=== PATIENT | male | born 1970 | race African-American/Black ===

== ENCOUNTER 2020-02-14 18:37 | Inpatient (IN) | payer MEDICAID ==
[~2020-02-14] VITALS: Ht 152.4 cm; Wt 45.4 kg
[~2020-02-14 18:37] MED LIST: ACETAMINOP160 MG/5 M ORAL; ACIDOPHILUS1 EAC7 PO; ALBUTEROL2.5 MG/3 M INH; ASCORBIC ACID500 MG ORAL; ASPIR-LOW81 MG GT; ATENOLOL25 MG GT; CARAFATE1 GM/10 M1 ORAL; COLACE100 MG/10 GT; CRANBERRY450 M3 GT; DUONEB 0.5-3(2.53 ML HHN; GLUCAGON W/DILUE1 MG *; INVANZ1 GM IM; LEVEMIR FL100 UNIT/1 SUBQ; MIRALAX17 GM GT; NORCO 10/3251 EA ORAL; PRIMIDONE50 MG GT; PROTONIX40 M2 GT; TENORMIN25 MG GT; VANCOMYCIN1.25 GM/25 IVPB
--- NOTE | 2020-02-14 18:57 | Emergency Room Report ---
History of Present Illness General Chief Complaint: Fever Source: EMS Present Illness HPI The patient's J-tube is not working. When they consider sending in for treatment of this they noted the patient was febrile. He had a temperature of 103. He has been febrile since Wednesday. We are Wednesday today. according to the ambulance crew the patient has rhonchi and also some snoring respirations. The J tube is in place but not functioning. The patient is in a vegetative state from multiple sclerosis. He has a tracheostomy, suprapubic catheter and also of the J-tube. In the past he is been admitted for sepsis from urinary source. Patient is unable to give a history at this time. He was last admitted to the hospital in 2013. Discharge diagnoses: 1. Hematuria. 2. History of urinary retention. 3. Malpositioned Morris catheter. 4. Sepsis. 5. Tachycardia. 6. The patient has a past medical history of multiple sclerosis, seizure disorder, and functional quadriplegia. Allergies: Coded Allergies: CEPHALEXIN (Unverified Allergy, Unknown, 12/05/13) COVID-19 Screening Contact w/high risk pt: Yes Experienced COVID-19 symptoms?: Yes COVID-19 Testing performed MIXER PIGMENT: Yes - 02/05/20 COVID-19 Screening: Negative COVID-19 COVID-19 Testing Source: unk Patient History Past Medical History: see triage record, old chart reviewed Past Surgical History: other - trach, suprapubic cath, J tube Social History Narrative SNF - full code Reviewed Nursing Documentation: PMH: Agreed; PSxH: Agreed Nursing Documentation-PMH Past Medical History: No History, Except For Hx Hypertension: Yes Hx Asthma: Yes Hx COPD: Yes Hx Diabetes: Yes Hx Gastrointestinal Problems: Yes - GERD Hx Neurological Problems: Yes - MULTIPLE SCLEROSIS Hx Cerebral Palsy: Yes Review of Systems All Other Systems: limited Physical Exam Vital Signs Date Time Temp Pulse Resp B/P (MAP) Pulse Ox O2 Delivery O2 Flow Rate FiO2 02/14/20 18:42 100.6 109 22 106/64 (78) 99 Trach Collar 5.0 Sp02 EP Interpretation: reviewed, normal General Appearance: other - Minimally responsive, Chronically Ill Head: normocephalic, atraumatic Eyes: bilateral eye other - eyes closed ENT: dry mucus membranes Neck: no bony tend - rigidity, tracheotomy Respiratory: no respiratory distress, crackles, rhonchi Cardiovascular #1: regular rate, rhythm Cardiovascular #2: 2+ radial (R) Gastrointestinal: no guarding, distended - slightly, other - J tube, decreased bowel sounds Genitourinary: other - suprapubic cath Musculoskeletal: other - Multiple contractures all extremities Neurologic: other - unresponsive Psychiatric: other Skin: warm/dry Medical Decision Making Diagnostic Impression: Primary Impression: UTI (urinary tract infection) Qualified Codes: T83.510A - Infection and inflammatory reaction due to cystostomy catheter, initial encounter; N39.0 - Urinary tract infection, site not specified Additional Impressions: Malfunction of gastrostomy tube Functional quadriplegia ER Course Patient presents with fever and dysfunctional jejunostomy tube. The patient is in a vegetative state with functional quadriplegia. Complex patient for evaluation as uncertain whether he is responding to painful stimuli at this time. Clearly lungs have rhonchi which makes the fever suspect for pulmonary source. Alternatively it is possible that the urine may be infected. Considerations for possible COVID-19. Considerations for sepsis also. Patient evaluated EKG, chest x-ray and labs. Inflammatory markers for possible COVID-19 also included. Patient placed on a monitor technician. We are unable to replace jejunostomy tubes in the emergency department. EKG sinus rhythm without injury. Chest x-ray no specific infiltrates present despite lung exam. Labs with white count upper limit of normal without left shift. CMP essentially unremarkable. Inflammatory markers for COVID-19 not elevated. Urinalysis with pyuria. Antibiotics begun and fluid bolus given. Discussed with Dr. Nicholson. [id number] Patient admitted to telemetry unit. Laboratory Tests Test 02/14/20 19:30 White Blood Count 10.6 K/UL (4.8-10.8) Red Blood Count 3.38 M/UL (4.70-6.10) L Hemoglobin 9.5 G/DL (14.2-18.0) L Hematocrit 29.3 % (42.0-52.0) L Mean Corpuscular Volume 87 FL (80-99) Mean Corpuscular Hemoglobin 28.1 PG (27.0-31.0) Mean Corpuscular Hemoglobin Concent 32.4 G/DL (32.0-36.0) Red Cell Distribution Width 16.6 % (11.6-14.8) H Platelet Count 111 K/UL (150-450) L Mean Platelet Volume 8.2 FL (6.5-10.1) Neutrophils (%) (Auto) 53.2 % (45.0-75.0) Lymphocytes (%) (Auto) 33.7 % (20.0-45.0) Monocytes (%) (Auto) 8.2 % (1.0-10.0) Eosinophils (%) (Auto) 3.3 % (0.0-3.0) H Basophils (%) (Auto) 1.5 % (0.0-2.0) Prothrombin Time 12.0 SEC (9.30-11.50) H Prothrombin Time INR 1.1 (0.9-1.1) Activated Partial Thromboplast Time 21 SEC (23-33) L D-Dimer 0.91 mg/L FEU (0.00-0.49) H Urine Color Pale yellow Urine Appearance Very cloudy Urine pH 8 (4.5-8.0) Urine Specific [place] 1.015 (1.005-1.035) Urine Protein 2+ (NEGATIVE) H Urine Glucose (UA) Negative (NEGATIVE) Urine Ketones 1+ (NEGATIVE) H Urine Blood 2+ (NEGATIVE) H Urine Nitrite Negative (NEGATIVE) Urine Bilirubin Negative (NEGATIVE) Urine Urobilinogen Normal MG/DL (0.0-1.0) Urine Leukocyte Esterase 3+ (NEGATIVE) H Urine RBC 0-2 /HPF (0 - 0) H Urine WBC 30-40 /HPF (0 - 0) H Urine Squamous Epithelial Cells Occasional /LPF Urine Calcium Phosphate Crystals Few /LPF (NONE) Urine Triple Phosphate Crystals Occasional /LPF (NONE) Urine Amorphous Sediment Moderate /LPF (NONE) H Urine Bacteria Moderate /HPF (NONE) H Sodium Level 131 MMOL/L (136-145) L Potassium Level 4.0 MMOL/L (3.5-5.1) Chloride Level 97 MMOL/L (98-107) L Carbon Dioxide Level 28 MMOL/L (21-32) Anion Gap 6 mmol/L (5-15) Blood Urea Nitrogen 14 mg/dL (7-18) Creatinine 0.7 MG/DL (0.55-1.30) Estimated Glomerular Filtration Rate > 60 mL/min (>60) Glucose Level 121 MG/DL (74-106) H Lactic Acid Level 1.90 mmol/L (0.4-2.0) Calcium Level 8.7 MG/DL (8.5-10.1) Magnesium Level 2.2 MG/DL (1.8-2.4) Ferritin 15 NG/ML (8-388) Total Bilirubin 0.2 MG/DL (0.2-1.0) Aspartate Amino Transferase (AST) 16 U/L (15-37) Alanine Aminotransferase (ALT) 20 U/L (12-78) Alkaline Phosphatase 102 U/L (46-116) Lactate Dehydrogenase 158 U/L (81-234) Total Creatine Kinase 55 U/L (26-308) Troponin I 0.000 ng/mL (0.000-0.056) C-Reactive Protein, Quantitative 0.8 mg/dL (0.00-0.90) Pro-B-Type Natriuretic Peptide 23 pg/mL (0-125) Total Protein 8.0 G/DL (6.4-8.2) Albumin 3.4 G/DL (3.4-5.0) Globulin 4.6 g/dL Albumin/Globulin Ratio 0.7 (1.0-2.7) L Lipase 103 U/L (73-393) EKG Diagnostic Results Rate: normal Rhythm: NSR ST Segments: no acute changes Rhythm Strip Diag. Results EP Interpretation: yes Rhythm: NSR, no PVC's, no ectopy Chest X-Ray Diagnostic Results Chest X-Ray Diagnostic Results : Chest X-Ray Ordered: Yes # of Views/Limited/Complete: 1 View Indication: Other EP Interpretation: Yes Interpretation: no consolidation, no effusion, no pneumothorax, other - Tracheostomy Impression: No acute disease Electronically Signed by: Electronically signed by Roberto Rothman MD Last Vital Signs Date Time Temp Pulse Resp B/P (MAP) Pulse Ox O2 Delivery O2 Flow Rate FiO2 02/14/20 20:14 99.7 02/14/20 18:42 109 22 106/64 (78) 99 Trach Collar 5.0 Status: improved Disposition: ADMITTED INPATIENT Condition: Serious Roberto Rothman MD Feb 14, 2020 18:57
[2020-02-14] MEDS ORDERED: Acetaminophen 650 MG SUPP RECTAL ONE (19:00)
[2020-02-14] MEDS ORDERED: Azithromycin 500 MG in NS 275 ML IVPB ONE (19:00)
[2020-02-14] MEDS ORDERED: Piperacillin/Tazobactam 3.375 GM in NS 110 ML IV ONE (19:00)
[2020-02-14] MEDS ORDERED: Vancomycin 1 GM in NS 275 ML IVPB ONE (19:00)
[2020-02-14 19:05] VITALS: BP 118/81
[2020-02-14 19:54] LABS: APPEARANCE,URINE VERY CLOUDY; BILIRUBIN, URINE NEGATIVE (NEGATIVE); GLUCOSE, URINE (UA) NEGATIVE (NEGATIVE); KETONES,URINE 1+ (NEGATIVE); LEUKOCYTE ESTERASE ,URINE 3+ (NEGATIVE); NITRITE,URINE NEGATIVE (NEGATIVE); PH,URINE 8 (4.5-8.0); PROTEIN,URINE 2+ (NEGATIVE); UROBILINOGEN,URINE NORMAL MG/DL (0.0-1.0)
[2020-02-14 19:57] LABS: BASOPHILS % (AUTO) 1.5 % (0.0-2.0); EOSINOPHILS % (AUTO) 3.3 % (0.0-3.0); HEMATOCRIT 29.3 % (42.0-52.0); HEMOGLOBIN 9.5 G/DL (14.2-18.0); LYMPHOCYTES % (AUTO) 33.7 % (20.0-45.0); MEAN CORPUSCULAR VOLUME 87 FL (80-99); MONOCYTES % (AUTO) 8.2 % (1.0-10.0); NEUTROPHILS % (AUTO) 53.2 % (45.0-75.0); PLATELET COUNT 111 K/UL (150-450); RED BLOOD COUNT 3.38 M/UL (4.70-6.10); RED CELL DISTRIBUTION WIDTH 16.6 % (11.6-14.8); WHITE BLOOD COUNT 10.6 K/UL (4.8-10.8)
[2020-02-14 19:58] LABS: COLOR,URINE PALE YELLOW
[2020-02-14 20:10] LABS: ANION GAP 6 mmol/L (5-15); BLOOD UREA NITROGEN 14 mg/dL (7-18); CALCIUM 8.7 MG/DL (8.5-10.1); CARBON DIOXIDE 28 MMOL/L (21-32); CHLORIDE 97 MMOL/L (98-107); CREATININE 0.7 MG/DL (0.55-1.30); SODIUM 131 MMOL/L (136-145)
[2020-02-14 20:25] LABS: ALANINE AMINOTRANSFERASE 20 U/L (12-78); ALBUMIN 3.4 G/DL (3.4-5.0); ALBUMIN/GLOBULIN RATIO 0.7 (1.0-2.7); ALKALINE PHOSPHATASE 102 U/L (46-116); ASPARTATE AMINO TRANSFERASE 16 U/L (15-37); BILIRUBIN,TOTAL 0.2 MG/DL (0.2-1.0); CREATINE KINASE 55 U/L (26-308); FERRITIN 15 NG/ML (8-388); LACTATE DEHYDROGENASE 158 U/L (81-234)
[2020-02-14 20:35] LABS: INR 1.1 (0.9-1.1)
[2020-02-14 22:00] VITALS: BP 121/74
[2020-02-15] VITALS (7 sets, daily range): BP systolic 112–128; BP diastolic 61–81
[2020-02-15] MEDS ORDERED: Acetaminophen Soln 160mg/5ml ORAL PRN (05:45)
[2020-02-15] MEDS ORDERED: Albuterol ud Inhalation HHN PRN (05:45)
[2020-02-15] MEDS ORDERED: HYDROcodone/Acetamin 10/325 tab ORAL PRN (05:45)
--- NOTE | 2020-02-15 07:04 | History & Physical ---
History of Present Illness General Reason for Hospitalization: Fever Present Illness Allergies: Coded Allergies: CEPHALEXIN (Unverified Allergy, Unknown, 12/05/13) COVID-19 Screening Contact w/high risk pt: Yes Experienced COVID-19 symptoms?: Yes Coronavirus symptoms experienc: Fever (T>100.4F or >38C) Medication History Scheduled Ascorbic Acid* (Ascorbic Acid*), 500 MG ORAL DAILY, (Reported) Aspirin* (Aspir-Low*), 81 MG GT DAILY, (Reported) Atenolol* (Tenormin*), 50 MG GT DAILY Docusate Sodium (Docusate Sodium), 250 MG GT DAILY, (Reported) Ertapenem Sodium* (INVanz*), 1 GM IM Q24H Pantoprazole Sodium (Protonix), 40 MG GT DAILY, (Reported) Polyethylene Glycol* (Miralax*), 17 GM GT DAILY, (Reported) Primidone* (Mysoline*), 50 MG GT TID, (Reported) Sucralfate (Carafate), 1 GM ORAL FOUR TIMES A DAY, (Reported) Vancomycin Hcl/D5w (Vancomycin-D5w 1.25 G/250 Ml), 1,250 MG IVPB Q24H Scheduled PRN Acetaminophen 160MG/5ML* (Acetaminophen*), 5 ML ORAL THREE TIMES A DAY PRN for Fever/Headache/Mild Pain, (Reported) Albuterol Sulfate* (Albuterol Sulfate Hhn*), 3 ML INH Q4H PRN for Shortness of Breath, (Reported) Hydrocodone/Acetaminophen (Hydrocodon-Acetaminophn 10-325), 1 TAB ORAL Q4H PRN for For Pain, (Reported) Miscellaneous Medications Cranberry Fruit Concentrate (Cranberry), 450 MG GT, (Reported) Glucagon (Glucagen), 1 MG *, (Reported) Insulin Detemir (Levemir Flexpen), 0 SUBQ, (Reported) Ipratropium/Albuterol Sulfate (DuoNeb 0.5-3(2.5)mg/3ml), 3 ML HHN, (Reported) Lactobacillus Acidophilus (Acidophilus), 1 EACH PO, (Reported) Patient History Healthcare decision maker Resuscitation status Advanced Directive on File Review of Systems Review of Symptoms General ROS: no weight loss or fever Psychological ROS: no depression or mood changes, no memory loss Ophthalmic ROS: no visual changes or eye irritation ENT ROS: no nasal congestion, hearing loss, dizziness Allergy and Immunology ROS: no allergic symptoms or urticaria Hematological and Lymphatic ROS: no swollen glands, unusual bleeding or bruising Endocrine ROS: no polyuria, polydipsia, weight changes, temperature intolerance Respiratory ROS: no cough, shortness of breath, or wheezing Cardiovascular ROS: no chest pain or dyspnea on exertion Gastrointestinal ROS: denies abdominal pain, bright red blood in stool. Musculoskeletal ROS: no myalgias or arthralgias Neurological ROS: no TIA or stroke symptoms Dermatological ROS: no new or changing skin lesions, rashes or pruritis Physical Exam Physical Exam General appearance: alert, cooperative, no distress, appears stated age Head: Normocephalic, without obvious abnormality, atraumatic Eyes: conjunctivae/corneas clear. PERRL, EOM's intact. Fundi benign Throat: Lips, mucosa, and tongue normal. Teeth and gums normal Neck: supple, symmetrical, trachea midline, no adenopathy, thyroid: not enlarged, symmetric, no tenderness/mass/nodules, no carotid bruit and no JVD Lungs: clear to auscultation bilaterally Heart: regular rate and rhythm, S1, S2 normal, no murmur, click, rub or gallop Abdomen: soft, non-tender. Bowel sounds normal. No masses, no organomegaly Extremities: extremities normal, atraumatic, no cyanosis or edema Pulses: 2+ and symmetric Skin: Skin color, texture, turgor normal. No rashes or lesions Neurologic: Grossly normal Last 24 Hour Vital Signs Date Time Temp Pulse Resp B/P (MAP) Pulse Ox O2 Delivery O2 Flow Rate FiO2 02/15/20 04:00 119 02/15/20 03:33 99 T-Piece 5.0 28 02/15/20 02:40 Trach Collar 5.0 02/15/20 02:00 99.5 118 22 122/64 (83) 98 02/15/20 01:55 99.8 118 18 118/74 100 Trach Collar 5.0 02/15/20 01:00 99.8 118 18 122/81 99 Trach Collar 5.0 02/14/20 22:00 99.5 106 18 121/74 99 Trach Collar 5.0 02/14/20 20:14 99.7 02/14/20 19:05 112 20 Trach Collar 5.0 02/14/20 19:05 100.6 112 20 118/81 99 Trach Collar 5.0 02/14/20 18:42 100.6 109 22 106/64 (78) 99 Trach Collar 5.0 Intake and Output 02/14/20 02/15/20 19:00 07:00 Intake Total 1660 ml Balance 1660 ml Intake IV Total 1660 ml # Voids 100 # Bowel Movements 1 Laboratory Tests Test 02/14/20 19:30 White Blood Count 10.6 K/UL (4.8-10.8) Red Blood Count 3.38 M/UL (4.70-6.10) L Hemoglobin 9.5 G/DL (14.2-18.0) L Hematocrit 29.3 % (42.0-52.0) L Mean Corpuscular Volume 87 FL (80-99) Mean Corpuscular Hemoglobin 28.1 PG (27.0-31.0) Mean Corpuscular Hemoglobin Concent 32.4 G/DL (32.0-36.0) Red Cell Distribution Width 16.6 % (11.6-14.8) H Platelet Count 111 K/UL (150-450) L Mean Platelet Volume 8.2 FL (6.5-10.1) Neutrophils (%) (Auto) 53.2 % (45.0-75.0) Lymphocytes (%) (Auto) 33.7 % (20.0-45.0) Monocytes (%) (Auto) 8.2 % (1.0-10.0) Eosinophils (%) (Auto) 3.3 % (0.0-3.0) H Basophils (%) (Auto) 1.5 % (0.0-2.0) Prothrombin Time 12.0 SEC (9.30-11.50) H Prothromb Time International Ratio 1.1 (0.9-1.1) Activated Partial Thromboplast Time 21 SEC (23-33) L D-Dimer 0.91 mg/L FEU (0.00-0.49) H Urine Color Pale yellow Urine Appearance Very cloudy Urine pH 8 (4.5-8.0) Urine Specific [place] 1.015 (1.005-1.035) Urine Protein 2+ (NEGATIVE) H Urine Glucose (UA) Negative (NEGATIVE) Urine Ketones 1+ (NEGATIVE) H Urine Blood 2+ (NEGATIVE) H Urine Nitrite Negative (NEGATIVE) Urine Bilirubin Negative (NEGATIVE) Urine Urobilinogen Normal MG/DL (0.0-1.0) Urine Leukocyte Esterase 3+ (NEGATIVE) H Urine RBC 0-2 /HPF (0 - 0) H Urine WBC 30-40 /HPF (0 - 0) H Urine Squamous Epithelial Cells Occasional /LPF Urine Calcium Phosphate Crystals Few /LPF (NONE) Urine Triple Phosphate Crystals Occasional /LPF (NONE) Urine Amorphous Sediment Moderate /LPF (NONE) H Urine Bacteria Moderate /HPF (NONE) H Sodium Level 131 MMOL/L (136-145) L Potassium Level 4.0 MMOL/L (3.5-5.1) Chloride Level 97 MMOL/L (98-107) L Carbon Dioxide Level 28 MMOL/L (21-32) Anion Gap 6 mmol/L (5-15) Blood Urea Nitrogen 14 mg/dL (7-18) Creatinine 0.7 MG/DL (0.55-1.30) Estimat Glomerular Filtration Rate > 60 mL/min (>60) Glucose Level 121 MG/DL (74-106) H Lactic Acid Level 1.90 mmol/L (0.4-2.0) Calcium Level 8.7 MG/DL (8.5-10.1) Magnesium Level 2.2 MG/DL (1.8-2.4) Ferritin 15 NG/ML (8-388) Total Bilirubin 0.2 MG/DL (0.2-1.0) Aspartate Amino Transf (AST/SGOT) 16 U/L (15-37) Alanine Aminotransferase (ALT/SGPT) 20 U/L (12-78) Alkaline Phosphatase 102 U/L (46-116) Lactate Dehydrogenase 158 U/L (81-234) Total Creatine Kinase 55 U/L (26-308) Troponin I 0.000 ng/mL (0.000-0.056) C-Reactive Protein, Quantitative 0.8 mg/dL (0.00-0.90) Pro-B-Type Natriuretic Peptide 23 pg/mL (0-125) Total Protein 8.0 G/DL (6.4-8.2) Albumin 3.4 G/DL (3.4-5.0) Globulin 4.6 g/dL Albumin/Globulin Ratio 0.7 (1.0-2.7) L Lipase 103 U/L (73-393) Microbiology Date/Time Source Procedure Growth Status 02/15/20 01:32 Rectal Mucosa Received Height (Feet): 5 Height (Inches): 0.00 Weight (Pounds): 100 Medications Current Medications Medications (Trade) Dose Ordered Sig/Kathryn Route PRN Reason Start Time Stop Time Status Last Admin Dose Admin Acetaminophen (Tylenol Peds) 160 mg THREE TIMES A DAY PRN ORAL FHMP 02/15/20 05:45 03/16/20 05:44 UNV Acetaminophen/ Hydrocodone Bitart ([place] ) 1 tab Q4H PRN ORAL For Pain 02/15/20 05:45 02/22/20 05:44 UNV Albuterol Sulfate (Proventil) 2.5 mg Q4H PRN HHN Shortness of Breath 02/15/20 05:45 02/20/20 05:44 Ascorbic Acid (Vitamin C) 500 mg DAILY GT 02/15/20 09:00 03/16/20 08:59 Atenolol (Tenormin) 50 mg DAILY GT 02/15/20 09:00 03/16/20 08:59 Docusate Sodium (Colace) 250 mg DAILY GT 02/15/20 09:00 03/16/20 08:59 Lactobacillus Acidophilus (Culturelle) 1 tab DAILY GT 02/15/20 09:00 05/15/20 08:59 Lansoprazole (Prevacid) 30 mg DAILY GT 02/15/20 09:00 03/16/20 08:59 Non-Formulary Medication (Non-Formulary Med) 1 ea DAILY ORAL 02/15/20 09:00 03/16/20 08:59 UNV Polyethylene Glycol (Miralax) 17 gm DAILY GT 02/15/20 09:00 03/16/20 08:59 Primidone (Mysoline) 50 mg TID GT 02/15/20 09:00 03/16/20 08:59 Sucralfate (Carafate) 1 gm DAILY GT 02/15/20 09:00 03/16/20 08:59 Vancomycin HCl (Vanco pharmacy to dose) 1 ea DAILY PRN MISC Per rx protocol 02/15/20 05:45 03/16/20 05:44 UNV Assessment/Plan Assessment/Plan: Internal Medicine H&P Covering Dr. Nicholson RFA: Sepsis DOS 02/15/2020 HPI 50y old The patient's J-tube is not working. When they consider sending in for treatment of this they noted the patient was febrile. He had a temperature of 103. He has been febrile since Wednesday. We are Wednesday today. according to the ambulance crew the patient has rhonchi and also some snoring respirations. The J tube is in place but not functioning. The patient is in a vegetative state from multiple sclerosis. He has a tracheostomy, suprapubic catheter and also of the J-tube. In the past he is been admitted for sepsis from urinary source. Patient is unable to give a history at this time. At bedside, today, with Rn, no major events noted and on phone with sister, but again he is nonverbal. Was last admitted to the hospital in 2013. Discharge diagnoses: 1. Hematuria. 2. History of urinary retention. 3. Malpositioned Morris catheter. 4. Sepsis. 5. Tachycardia. 6. The patient has a past medical history of multiple sclerosis, seizure disorder, and functional quadriplegia. Allergies: CEPHALEXIN (Unverified Allergy, Unknown, 12/05/13) COVID-19 Screening Contact w/high risk pt: Yes Experienced COVID-19 symptoms?: Yes COVID-19 Testing performed OFFSHORE DIVER: Yes - 02/05/20 COVID-19 Screening: Negative COVID-19 COVID-19 Testing Source: unk Patient History Past Medical History: see triage record, old chart reviewed Past Surgical History: other - trach, suprapubic cath, J tube Social History Narrative SNF - full code Reviewed Nursing Documentation: PMH: Agreed; PSxH: Agreed Nursing Documentation-PMH Past Medical History: No History, Except For Hx Hypertension: Yes Hx Asthma: Yes Hx COPD: Yes Hx Diabetes: Yes Hx Gastrointestinal Problems: Yes - GERD Hx Neurological Problems: Yes - MULTIPLE SCLEROSIS Hx Cerebral Palsy: Yes Review of Systems All Other Systems: limited Physical Exam Vitals: noted Sp02 EP Interpretation: reviewed, normal General Appearance: Chronically Ill Head: normocephalic, atraumatic eyes closed, dry mucus membranes Neck: no bony tend - rigidity, tracheotomy Respiratory: no respiratory distress, crackles, rhonchi CV: regular rate, rhythm Gastrointestinal: no guarding, distended - slightly, other - J tube, decreased bowel sounds Genitourinary: other - suprapubic cath [place]: other - Multiple contractures all extremities Neurologic: other - unresponsive Psychiatric: other Skin: warm/dry Labs: noted Imaging: reviewed Assessment and recs # Sepsis with potential UTI (urinary tract infection) with pyuria --> urinanalysis has been reviewed, with leuk esterase --> ABX vanc/zosyn --> smear has been reviewed # Malfunction of gastrostomy tube --> as per Gi # Functional quadriplegia --> stable # Dysfunctional jejunostomy tube. --> vegetative state with functional quadriplegia. # Tachycardic overnight --> ivfs --> meds restarted, per Dr. Weinberg # Hyponatremia --> as per renal # Respiratory failure s/p trach --> 2l nc --> as per pulm # Nonverbal status # Stage III decub --> per surgery # Dvt ppx lovenox Appreciate network pricing consultant care, dw them [facility] Hospital declaration INPATIENT level of care is warranted for this patient because patient is a 89 year old with who presents with suspicion of . I have a high level of concern because . Patient is at high risk for . Plan of care/treatment inc lude . Patient care is expected to be greater than 2 midnights. OBSERVATION level of care is warranted for this patient. Patient is a 89 year old with who presents with . Patient will be admitted for 1 midnight, but if additional night(s) is/are necessary, patient will be converted to inpatient status for the entire hospitalization Disposition: Once the patient is stable to leave the hospital, I anticipate the patient will likely be discharged to the following environment: Estimated discharge date: I spent 70 minutes on this patient's case, and minutes was dedicated to counseling and/or care coordination. MIPS (Merit-based Incentive Payment System) Applicable CPT: 90631, 13692 CHECK ALL THAT ARE MET: Measure #5 (CHF): All ages. Prescribe YASMANY/ARB upon discharge for patients with left ventricular systolic dysfunction. If not, the reason is clearly documented in the medical chart. Measure #8 (CHF): All ages. Prescribe a beta gale upon discharge for patients with left ventricular systolic dysfunction. If not, the reason is clearly documented in the medical chart. Measure #47 Advance care plan or surrogate decision maker documented in the medical record. Measure #130 The provider has documented, updated, or reviewed the patients current medication list and has documented it in the patients note. Measure #374 (All): Send report to referring provider. Measure #407(Sepsis due to MSSA bacteremia): Age 18+ Patient treated with a beta-lactam antibiotic (Nafcillin, Oxacillin or Cefazolin) as definitive therapy. MEDICAL COMPLEXITY High complexity medical decision making (need 2/3 categories) Problem - need 4 points Acute/new problem with new plan for workup (4 points, 1 max) Acute/new problem without additional workup (3 points, 1 max) Unstable chronic problem actively being managed (2 point each, 2 max) Stable chronic problem actively being managed (1 point each, 2 max) Self-limited/transient process (constipation, muscle ache, etc) (1 point each, 2 max) Data - need 4 points Reviewed labs/imaging studies (1 points, 2 max) Independent review of imaging (EKG, xrays, etc) (2 points, 2 max) Discussed case with consult/other MD/RN (2 points, 2 max) High Risk - qualify if have one of the following: Severe exacerbation of acute problem, acute mental status change, IV narcotics, monitoring drug levels (vancomycin, INR, tacrolimus etc) Shakir Benitez MD Feb 15, 2020 07:04
--- NOTE | 2020-02-15 07:32 | General Progress Note ---
Subjective ROS Limited/Unobtainable: No Allergies: Coded Allergies: CEPHALEXIN (Unverified Allergy, Unknown, 12/05/13) Objective Last 24 Hour Vital Signs Date Time Temp Pulse Resp B/P (MAP) Pulse Ox O2 Delivery O2 Flow Rate FiO2 02/15/20 04:00 119 02/15/20 04:00 99.8 111 21 125/61 (82) 96 02/15/20 03:33 99 T-Piece 5.0 28 02/15/20 02:40 Trach Collar 5.0 02/15/20 02:00 99.5 118 22 122/64 (83) 98 02/15/20 01:55 99.8 118 18 118/74 100 Trach Collar 5.0 02/15/20 01:00 99.8 118 18 122/81 99 Trach Collar 5.0 02/14/20 22:00 99.5 106 18 121/74 99 Trach Collar 5.0 02/14/20 20:14 99.7 02/14/20 19:05 112 20 Trach Collar 5.0 02/14/20 19:05 100.6 112 20 118/81 99 Trach Collar 5.0 02/14/20 18:42 100.6 109 22 106/64 (78) 99 Trach Collar 5.0 Intake and Output 02/14/20 02/15/20 19:00 07:00 Intake Total 1660 ml Balance 1660 ml Intake IV Total 1660 ml # Voids 100 # Bowel Movements 1 Laboratory Tests 02/14/20 19:30: White Blood Count 10.6, Red Blood Count 3.38L, Hemoglobin 9.5L, Hematocrit 29.3L , Mean Corpuscular Volume 87, Mean Corpuscular Hemoglobin 28.1, Mean Corpuscular Hemoglobin Concent 32.4, Red Cell Distribution Width 16.6H, Platelet Count 111L, Mean Platelet Volume 8.2, Neutrophils (%) (Auto) 53.2, Lymphocytes (%) (Auto) 33.7, Monocytes (%) (Auto) 8.2, Eosinophils (%) (Auto) 3.3H, Basophils (%) (Auto) 1.5, Prothrombin Time 12.0H, Prothromb Time International Ratio 1.1, Activated Partial Thromboplast Time 21L, D-Dimer 0.91H, Urine Color Pale yellow, Urine Appearance Very cloudy, Urine pH 8, Urine Specific [place] 1.015, Urine Protein 2+H, Urine Glucose (UA) Negative, Urine Ketones 1+H, Urine Blood 2+H, Urine Nitrite Negative, Urine Bilirubin Negative, Urine Urobilinogen Normal, Urine Leukocyte Esterase 3+H, Urine RBC 0-2H, Urine WBC 30-40H, Urine Squamous Epithelial Cells Occasional, Urine Calcium Phosphate Crystals Few, Urine Triple Phosphate Crystals Occasional, Urine Amorphous Sediment ModerateH, Urine Bacteria ModerateH, Sodium Level 131L, Potassium Level 4.0, Chloride Level 97L, Carbon Dioxide Level 28, Anion Gap 6, Blood Urea Nitrogen 14, Creatinine 0.7, Estimat Glomerular Filtration Rate > 60, Glucose Level 121H, Lactic Acid Level 1.90, Calcium Level 8.7, Magnesium Level 2.2, Ferritin 15, Total Bilirubin 0.2, Aspartate Amino Transf (AST/SGOT) 16, Alanine Aminotransferase (ALT/SGPT) 20, Alkaline Phosphatase 102, Lactate Dehydrogenase 158, Total Creatine Kinase 55, Troponin I 0.000, C-Reactive Protein, Quantitative 0.8, Pro-B-Type Natriuretic Peptide 23, Total Protein 8.0, Albumin 3.4, Globulin 4.6, Albumin/Globulin Ratio 0.7L, Lipase 103 Height (Feet): 5 Height (Inches): 0.00 Weight (Pounds): 100 General Appearance: lethargic EENT: normal ENT inspection Neck: supple Cardiovascular: normal rate Respiratory/Chest: decreased breath sounds Abdomen: normal bowel sounds, non tender, soft Extremities: non-tender Assessment/Plan Problem List: (1) Malfunction of gastrostomy tube ICD Codes: K94.23 - Gastrostomy malfunction SNOMED: 507032637 (2) UTI (urinary tract infection) ICD Codes: N39.0 - Urinary tract infection, site not specified SNOMED: 11289586 Qualifiers: Qualified Codes: T83.510A - Infection and inflammatory reaction due to cystostomy catheter, initial encounter; N39.0 - Urinary tract infection, site not specified (3) Functional quadriplegia ICD Codes: R53.2 - Functional quadriplegia SNOMED: 447865441835233 (4) Fever ICD Codes: R50.9 - Fever, unspecified SNOMED: 458596188 Assessment/Plan: kub with contrast to locate the GT tip anemia work up respiratory care will Husam Carranza MD Feb 15, 2020 07:32
[2020-02-15] MEDS: Sucralfate 1gm tab GT SCH (09:00)
[2020-02-15] MEDS ORDERED: Atenolol 25mg tab GT SCH (09:00)
[2020-02-15] MEDS: Enoxaparin 40mg Inj SUBQ SCH (09:00)
[2020-02-15] MEDS: Docusate 100mg/10ml Liq GT SCH (09:00)
[2020-02-15] MEDS: Lactobacillus-GG tablet GT SCH (11:29)
[2020-02-15] MEDS: Miralax 17gm pkt GT SCH (11:30)
[2020-02-15] MEDS: Ascorbic Acid 500mg tab GT SCH (11:32)
[2020-02-15] MEDS: Vancomycin 500mg/D5W 110ml IVPB SCH ×4 (11:35→23:00)
--- NOTE | 2020-02-15 13:21 | Diagnostic Imaging Report ---
EXAM: XR Abdomen, 2 Views CLINICAL HISTORY: PLEFF TECHNIQUE: Frontal view of the abdomen/pelvis with upright view of the abdomen. COMPARISON: Abdominal radiograph on 07/20/2015 FINDINGS: Hardware: Contrast injected into the G-tube is noted within the stomach and small bowel loops. Abdomen: Nonspecific bowel gas pattern. No free air. Bones: Normal. Soft tissues: Normal. Lower chest: Hands and arms are obscuring the lower lungs. IMPRESSION: Contrast injected into the G-tube is noted within the stomach and small bowel loops, suggesting correct placement of the G-tube.
--- NOTE | 2020-02-15 13:29 | Consultation ---
DATE OF CONSULTATION: 02/15/2020 PULMONARY CONSULTATION CONSULTING PHYSICIAN: Shaggy Ross MD. HISTORY OF PRESENT ILLNESS: This is a 50-year-old male with a history of chronic tracheostomy, who was sent in from subacute facility. The patient has a history of multiple sclerosis and is in a vegetative state. He has a suprapubic catheter as well as a J-tube and apparently was nonfunctional. In the past, he has had urosepsis. The patient was febrile on arrival to the emergency room. PAST MEDICAL HISTORY: Notable for multiple sclerosis, chronic suprapubic catheter, chronic J-tube, chronic tracheostomy, quadriplegia. ALLERGIES: Cephalexin. MEDICATIONS: List of medications include albuterol, ascorbic acid, Tenormin, Colace, lactobacillus, Prevacid, MiraLAX, primidone, Carafate, azithromycin, Zosyn, vancomycin, and Lovenox. REVIEW OF SYSTEMS: Not obtainable. PHYSICAL EXAMINATION: GENERAL: Reveals a 50-year-old male. HEENT: Notable for tracheostomy, site is clean. He is on a T-piece with 5 liters of oxygen, FiO2 is 28% with saturation 99%. VITAL SIGNS: Blood pressure is 120/60, heart rate 110, T-max 100.8 axillary, respirations 21. CHEST: Clear breath sounds bilaterally. ABDOMEN: Soft. J-tube is noted. There is also suprapubic catheter. EXTREMITIES: He has functional quadriplegia. LABORATORY DATA: Laboratory testing shows hemoglobin 9.5, otherwise normal CBC and BMP. Sodium 131. Coags notable for D-dimer 0.9. Urinalysis shows wbc. Imaging studies per ER physician note show nonspecific infiltrates on chest x-ray. EKG, normal sinus rhythm. IMPRESSION: 1. Urosepsis. 2. Chronic tracheostomy. 3. Multiple sclerosis. DISCUSSION: Agree with current management and care. The patient needs fluid hydration and broad spectrum antibiotics. We will continue T-piece with 5 liters of oxygen and pulmonary hygiene. We will follow. Shaggy Ross M.D. DR: TANNER JOB#: [id number] CC:
[2020-02-15] MEDS ORDERED: Piperacillin/Tazobactam 2.25 GM in D5W 55 ML IV SCH (14:00)
[2020-02-15] MEDS: Zosyn 3.375gm q8h **Extended infusion IVPB SCH ×4 (15:13→22:14)
--- NOTE | 2020-02-15 16:05 | Diagnostic Imaging Report ---
EXAM: XR Chest, 1 View CLINICAL HISTORY: ALOC TECHNIQUE: Frontal view of the chest. COMPARISON: None FINDINGS: Hardware: Tracheostomy tube in place. Lungs/pleura: Low lung volumes. Bibasilar opacities likely represent atelectasis. No focal consolidation. No pleural effusion or pneumothorax. Heart/mediastinum: Borderline size of the cardiac silhouette which may be accentuated by low lung volumes. Soft tissues: Unremarkable. Bones: No acute fracture. Upper abdomen: Normal. IMPRESSION: Bibasilar opacities likely represent atelectasis. No other focal consolidation.
[2020-02-15] MEDS ORDERED: Acetaminophen 650mg/20.3ml GT PRN ×6 (17:00)
--- NOTE | 2020-02-15 22:06 | Consultation ---
History of Present Illness General Date patient seen: Feb 15, 2020 Reason for Hospitalization: Fever Present Illness HPI This is a 50-year-old male multimedical comorbidities malnutrition abnormal labs identified to have nonfunctional feeding tube admitted for further care and management. Surgery called to evaluate assist with care. Patient seen, patient by, chart reviewed. Patient with multiple skin concerns decubitus ulcers malnutrition requiring further care and management. Allergies: Coded Allergies: CEPHALEXIN (Unverified Allergy, Unknown, 12/05/13) COVID-19 Screening Contact w/high risk pt: Yes Experienced COVID-19 symptoms?: Yes Coronavirus symptoms experienc: Fever (T>100.4F or >38C) Medication History Scheduled Ascorbic Acid* (Ascorbic Acid*), 500 MG ORAL DAILY, (Reported) Aspirin* (Aspir-Low*), 81 MG GT DAILY, (Reported) Atenolol* (Tenormin*), 50 MG GT DAILY Docusate Sodium (Docusate Sodium), 250 MG GT DAILY, (Reported) Ertapenem Sodium* (INVanz*), 1 GM IM Q24H Pantoprazole Sodium (Protonix), 40 MG GT DAILY, (Reported) Polyethylene Glycol* (Miralax*), 17 GM GT DAILY, (Reported) Primidone* (Mysoline*), 50 MG GT TID, (Reported) Sucralfate (Carafate), 1 GM ORAL FOUR TIMES A DAY, (Reported) Vancomycin Hcl/D5w (Vancomycin-D5w 1.25 G/250 Ml), 1,250 MG IVPB Q24H Scheduled PRN Acetaminophen 160MG/5ML* (Acetaminophen*), 5 ML ORAL THREE TIMES A DAY PRN for Fever/Headache/Mild Pain, (Reported) Albuterol Sulfate* (Albuterol Sulfate Hhn*), 3 ML INH Q4H PRN for Shortness of Breath, (Reported) Hydrocodone/Acetaminophen (Hydrocodon-Acetaminophn 10-325), 1 TAB ORAL Q4H PRN for For Pain, (Reported) Miscellaneous Medications Cranberry Fruit Concentrate (Cranberry), 450 MG GT, (Reported) Glucagon (Glucagen), 1 MG *, (Reported) Insulin Detemir (Levemir Flexpen), 0 SUBQ, (Reported) Ipratropium/Albuterol Sulfate (DuoNeb 0.5-3(2.5)mg/3ml), 3 ML HHN, (Reported) Lactobacillus Acidophilus (Acidophilus), 1 EACH PO, (Reported) Patient History Limited by: medical condition History Provided By: Medical Record, PMD Healthcare decision maker Resuscitation status Advanced Directive on File Past Medical/Surgical History Past Medical/Surgical History: (1) Abnormal urogenital findings (2) Fever (3) Hematuria (4) Tachycardia (5) Sepsis (6) Fever (7) Encounter for care related to feeding tube (8) Functional quadriplegia (9) UTI (urinary tract infection) (10) Malfunction of gastrostomy tube (11) Fever Review of Systems Review of Symptoms General ROS: no weight loss or fever Psychological ROS: no depression or mood changes, no memory loss Ophthalmic ROS: no visual changes or eye irritation ENT ROS: no nasal congestion, hearing loss, dizziness Allergy and Immunology ROS: no allergic symptoms or urticaria Hematological and Lymphatic ROS: no swollen glands, unusual bleeding or bruising Endocrine ROS: no polyuria, polydipsia, weight changes, temperature intolerance Respiratory ROS: no cough, shortness of breath, or wheezing Cardiovascular ROS: no chest pain or dyspnea on exertion Gastrointestinal ROS: denies abdominal pain, bright red blood in stool. Musculoskeletal ROS: no myalgias or arthralgias Neurological ROS: no TIA or stroke symptoms Dermatological ROS: no new or changing skin lesions, rashes or pruritis limited Physical Exam Physical Exam General appearance: alert, cooperative, no distress, appears stated age Head: Normocephalic, without obvious abnormality, atraumatic Eyes: conjunctivae/corneas clear. PERRL, EOM's intact. Fundi benign Throat: Lips, mucosa, and tongue normal. Teeth and gums normal Neck: supple, symmetrical, trachea midline, no adenopathy, thyroid: not enlarged, symmetric, no tenderness/mass/nodules, no carotid bruit and no JVD Lungs: clear to auscultation bilaterally Heart: regular rate and rhythm, S1, S2 normal, no murmur, click, rub or gallop Abdomen: soft, non-tender. Bowel sounds normal. No masses, no organomegaly Extremities: extremities normal, atraumatic, no cyanosis or edema Pulses: 2+ and symmetric Skin: Skin color, texture, turgor normal. No rashes or lesions Neurologic: Grossly normal Last 24 Hour Vital Signs Date Time Temp Pulse Resp B/P (MAP) Pulse Ox O2 Delivery O2 Flow Rate FiO2 02/15/20 16:00 98.8 119 20 125/62 (83) 97 02/15/20 16:00 105 02/15/20 13:45 96 T-Piece 5.0 28 02/15/20 12:00 105 02/15/20 12:00 98.9 107 18 120/65 (83) 96 02/15/20 09:00 Trach Collar 2.0 02/15/20 08:16 98 20 97 T-Piece 4.0 28 02/15/20 08:15 97 T-Piece 5.0 28 02/15/20 08:14 99 20 97 T-Piece 4.0 28 02/15/20 08:00 115 02/15/20 08:00 99.0 116 20 128/68 (88) 97 02/15/20 04:00 119 02/15/20 04:00 99.8 111 21 125/61 (82) 96 02/15/20 03:33 99 T-Piece 5.0 28 02/15/20 02:40 Trach Collar 5.0 02/15/20 02:00 99.5 118 22 122/64 (83) 98 02/15/20 01:55 99.8 118 18 118/74 100 Trach Collar 5.0 02/15/20 01:00 99.8 118 18 122/81 99 Trach Collar 5.0 Intake and Output 02/14/20 02/15/20 19:00 07:00 Intake Total 1660 ml Balance 1660 ml Intake IV Total 1660 ml # Voids 100 # Bowel Movements 1 Microbiology Date/Time Source Procedure Growth Status 02/15/20 01:32 Rectal Mucosa Received Height (Feet): 5 Height (Inches): 0.00 Weight (Pounds): 100 Medications Current Medications Medications (Trade) Dose Ordered Sig/Kathryn Route PRN Reason Start Time Stop Time Status Last Admin Dose Admin Acetaminophen (Tylenol) 650 mg Q8H PRN GT Mild Pain (Pain Scale 1-3) 02/15/20 17:00 03/16/20 16:59 Acetaminophen (Tylenol) 650 mg Q8H PRN GT Temp >100.5 02/15/20 17:00 03/16/20 16:59 Acetaminophen (Tylenol) 650 mg Q8H PRN GT headache 02/15/20 17:00 03/16/20 16:59 Acetaminophen/ Hydrocodone Bitart ([place] 10/325) 1 tab Q4H PRN ORAL For Pain 4-10 02/15/20 05:45 02/22/20 05:44 Albuterol Sulfate (Proventil) 2.5 mg Q4H PRN HHN Shortness of Breath 02/15/20 05:45 02/20/20 05:44 Ascorbic Acid (Vitamin C) 500 mg DAILY GT 02/15/20 09:00 03/16/20 08:59 Atenolol (Tenormin) 50 mg DAILY GT 02/15/20 09:00 03/16/20 08:59 Docusate Sodium (Colace) 250 mg DAILY GT 02/15/20 09:00 03/16/20 08:59 Enoxaparin Sodium (Lovenox) 40 mg DAILY SUBQ 02/15/20 09:00 05/15/20 08:59 02/15/20 09:00 Lactobacillus Acidophilus (Culturelle) 1 tab DAILY GT 02/15/20 09:00 05/15/20 08:59 Lansoprazole (Prevacid) 30 mg DAILY GT 02/15/20 09:00 03/16/20 08:59 Piperacillin Sod/ Tazobactam Sod 3.375 gm/Sodium Chloride 110 ml @ 27.5 mls/hr EVERY 8 HOURS IVPB 02/15/20 14:00 02/20/20 13:59 02/15/20 15:13 Polyethylene Glycol (Miralax) 17 gm DAILY GT 02/15/20 09:00 03/16/20 08:59 Primidone (Mysoline) 50 mg TID GT 02/15/20 09:00 03/16/20 08:59 02/15/20 16:27 Sucralfate (Carafate) 1 gm DAILY GT 02/15/20 09:00 03/16/20 08:59 Vancomycin HCl (Vanco pharmacy to dose) 1 ea DAILY PRN MISC Per rx protocol 02/15/20 05:45 03/16/20 05:44 Vancomycin HCl 500 mg/Dextrose 110 ml @ 110 mls/hr Q12H IVPB 02/15/20 11:00 02/20/20 10:59 02/15/20 11:35 Assessment/Plan Problem List: (1) Functional quadriplegia ICD Codes: R53.2 - Functional quadriplegia SNOMED: 699670990420845 (2) UTI (urinary tract infection) ICD Codes: N39.0 - Urinary tract infection, site not specified SNOMED: 37501210 Qualifiers: Qualified Codes: T83.510A - Infection and inflammatory reaction due to cystostomy catheter, initial encounter; N39.0 - Urinary tract infection, site not specified (3) Malfunction of gastrostomy tube Assessment & Plan: g tube changed and now functional tolerating meds and tf bowel function bowel regimen nutritional optimization DAILY ESTIMATED NEEDS: Needs based on wound, pulmonary/ 66.7kg 25-30 kcals/kg total kcals 1.25-1.8 g protein/kg 83-120 g total protein 25-30 mL/kg total fluid mLs NUTRITION DIAGNOSIS: * Increased kcal/prot/micronutrients needs R/T wound healing as evidenced by pt admitted w/ stage 3 wounds @ sacrum and R gluteal fold. * Swallowing difficulty R/T dysphagia, respiratory status as evidenced by pt is on T-collar, Jtube dep. CURRENT TF:Glucerna 1.2 @70ml/hr x 20 hrs ENTERAL NUTRITION RECOMMENDATIONS: Glucerna 1.2 @ 70ml/hr x 20 hrs to provide 1400ml, 1680kcal, 86g prot, 1162ml free water * Maintain current TF: meets 100% est kcal/prot needs * HOB over 30 degrees/ water flush per MD ADDITIONAL RECOMMENDATIONS: * Maintain calibrated bedscale wt * Monitor lytes, replete as needed * Wound healing: TF @ goal meets 100% RDI Continue Vit C/ add ZnSO4 220mg QD x 10 days + Caio BID via Jtube * Monitor BGs, need for NISS ICD Codes: K94.23 - Gastrostomy malfunction SNOMED: 932024733 (4) Fever ICD Codes: R50.9 - Fever, unspecified SNOMED: 911203684 (5) Fever ICD Codes: R50.9 - Fever, unspecified SNOMED: 855028303 (6) Fever ICD Codes: R50.9 - Fever, unspecified SNOMED: 420984396 (7) Hematuria ICD Codes: R31.9 - Hematuria, unspecified SNOMED: 53438394 (8) Tachycardia ICD Codes: R00.0 - Tachycardia, unspecified SNOMED: 3151038 (9) Sepsis ICD Codes: A41.9 - Sepsis, unspecified organism SNOMED: 16001014 (10) Abnormal urogenital findings ICD Codes: R89.9 - Unsp abnormal finding in specimens from oth org/tiss SNOMED: 522363233 (11) Encounter for care related to feeding tube ICD Codes: Z46.59 - Encounter for fitting and adjustment of other gastrointestinal appliance and device SNOMED: 102554320 (12) Decubitus skin ulcer Assessment & Plan: Patient identified admission of multiple areas of skin breakdown mainly moisture related pressure injuries as well. Patient evaluated care plan initiated wounds washed dressings applied protocol initiated no deep wounds no abscess no cellulitis. Local wound care will be initiated offload pressure nutritional optimization ICD Codes: L89.90 - Pressure ulcer of unspecified site, unspecified stage SNOMED: 022122271 Tacho Fagan Feb 15, 2020 22:06
[2020-02-16] VITALS: BP 108/65
--- NOTE | 2020-02-16 00:45 | Consultation ---
DATE OF CONSULTATION: CARDIOLOGY CONSULTATION CONSULTING PHYSICIAN: Roberto Weinberg MD REFERRING PHYSICIAN: Donna Nicholson MD REASON FOR CONSULTATION: Tachycardia. HISTORY OF PRESENT ILLNESS: This 50-year-old male with chronic encephalopathy due to multiple sclerosis has a chronic tracheostomy and was transferred here for management of a nonfunctional feeding tube. I have been asked to address his tachycardia. PAST MEDICAL HISTORY: Includes chronic suprapubic catheter, chronic jejunostomy tube, chronic tracheostomy, functional quadriparesis, vegetative state due to multiple sclerosis. ALLERGIES: Include cephalexin. MEDICATIONS: Reviewed and reconciled and include . REVIEW OF SYSTEMS: Not obtainable. PHYSICAL EXAMINATION: VITAL SIGNS: Patient is on T-tube collar on 5 liters oxygen. No respiratory distress. Blood pressure 120/60, heart rate 110, respirations 21, temperature 100.8 max. HEENT: Thin secretions. LUNGS: Bilateral breath sounds. No wheezing or rales. CARDIAC: Regular rhythm. Rapid rate. Normal S1, S2 with no murmur or rub. ABDOMEN: Soft. J-tube is noted as well as suprapubic catheter. EXTREMITIES: No edema. Muscle atrophy. NEUROLOGIC: Patient is comatose. LABORATORY AND DIAGNOSTIC DATA: EKG, sinus tachycardia, no acute abnormalities. White count 10.6, hemoglobin 9.5. Sodium 131, potassium 4, bicarb 28, chloride 97, BUN 14, creatinine 0.7. Lactic acid 1.9. Troponin 0. Albumin 3.4. Urinalysis 30 to 40 white cells. Venous duplex negative for DVT. IMPRESSION: 1. Complicated urinary tract infection. 2. Hyponatremia. 3. Hypochloremia. 4. Hypovolemia. 5. Beta-gale withdrawal. 6. Autonomic dysfunction. 7. Chronic vegetative state. 8. Chronic respiratory failure. 9. Multiple sclerosis. 10. Anemia of chronic disease. PLAN: 1. Antimicrobials per primary care physician. 2. Saline hydration. 3. Resume beta-gale. 4. DVT prophylaxis. 5. Respiratory hygiene. 6. Avoid beta agonist therapy. Roberto Weinberg M.D. : [facility]RIS JOB#: [id number] CC:
[2020-02-16 04:00] VITALS: BP 109/58
[2020-02-16 07:01] LABS: ALANINE AMINOTRANSFERASE 22 U/L (12-78); ALBUMIN 3.3 G/DL (3.4-5.0); ALBUMIN/GLOBULIN RATIO 0.8 (1.0-2.7); ALKALINE PHOSPHATASE 114 U/L (46-116); ANION GAP 7 mmol/L (5-15); ASPARTATE AMINO TRANSFERASE 15 U/L (15-37); BILIRUBIN,TOTAL 0.2 MG/DL (0.2-1.0); BLOOD UREA NITROGEN 10 mg/dL (7-18); CALCIUM 8.9 MG/DL (8.5-10.1); CARBON DIOXIDE 25 MMOL/L (21-32); CHLORIDE 102 MMOL/L (98-107); CREATININE 0.7 MG/DL (0.55-1.30); SODIUM 134 MMOL/L (136-145)
[2020-02-16] MEDS: Zosyn 3.375gm q8h **Extended infusion IVPB SCH ×6 (07:03→21:43)
--- NOTE | 2020-02-16 07:05 | General Progress Note ---
Subjective HEENT: Denies: no symptoms, eye pain, blurred vision, tearing, double vision, ear pain, ear discharge, nose pain, nose congestion, throat pain, throat swelling, mouth pain, mouth swelling, other Cardiovascular: Denies: no symptoms, chest pain, edema, irregular heart rate, lightheadedness, palpitations, syncope, other Respiratory: Denies: no symptoms, cough, orthopnea, shortness of breath, SOB with excertion, SOB at rest, sputum, stridor, wheezing, other Gastrointestinal/Abdominal: Denies: no symptoms, abdomen distended, abdominal pain, black stools, tarry stools, blood in stool, constipated, diarrhea, difficulty swallowing, nausea, poor appetite, poor fluid intake, rectal bleeding, vomiting, other Genitourinary: Denies: no symptoms, burning, discharge, frequency, flank pain, hematuria, incontinence, pain, urgency, other Neurologic/Psychiatric: Denies: no symptoms, anxiety, depressed, emotional problems, headache, numbness, paresthesia, pre-existing deficit, seizure, tingling, tremors, weakness, other Endocrine: Denies: no symptoms, excessive sweating, flushing, intolerance to cold, intolerance to heat, increased hunger, increased thirst, increased urine, unexplained weight gain, unexplained weight loss, other Hematologic/Lymphatic: Denies: no symptoms, anemia, easy bleeding, easy bruising, other Allergies: Coded Allergies: CEPHALEXIN (Unverified Allergy, Unknown, 12/05/13) Subjective 02/15 tachycardic overnight, with bp mildly elev, reviewed cards recs Objective Last 24 Hour Vital Signs Date Time Temp Pulse Resp B/P (MAP) Pulse Ox O2 Delivery O2 Flow Rate FiO2 02/16/20 04:00 99.0 86 109/58 (75) 02/16/20 04:00 97 02/16/20 01:22 97 T-Piece 5.0 28 02/16/20 00:00 119 02/16/20 00:00 108 115/65 02/16/20 00:00 98.2 84 108/65 (79) 02/15/20 21:00 Trach Collar 2.0 02/15/20 20:00 99.2 110 20 112/65 (81) 97 02/15/20 19:00 119 20 97 T-Piece 4.0 28 02/15/20 19:00 97 T-Piece 5.0 28 02/15/20 16:00 98.8 119 20 125/62 (83) 97 02/15/20 16:00 105 02/15/20 13:45 96 T-Piece 5.0 28 02/15/20 12:00 105 02/15/20 12:00 98.9 107 18 120/65 (83) 96 02/15/20 09:00 Trach Collar 2.0 02/15/20 08:16 98 20 97 T-Piece 4.0 28 02/15/20 08:15 97 T-Piece 5.0 28 02/15/20 08:14 99 20 97 T-Piece 4.0 28 02/15/20 08:00 115 02/15/20 08:00 99.0 116 20 128/68 (88) 97 Intake and Output 02/15/20 02/16/20 19:00 07:00 Output Total 500 ml Balance -500 ml Output Urine Total 500 ml # Bowel Movements 1 Laboratory Tests 02/16/20 05:10: White Blood Count [Pending], Red Blood Count [Pending], Hemoglobin [Pending], Hematocrit [Pending], Mean Corpuscular Volume [Pending], Mean Corpuscular Hemoglobin [Pending], Mean Corpuscular Hemoglobin Concent [Pending], Red Cell Distribution Width [Pending], Platelet Count [Pending], Mean Platelet Volume [Pending], Neutrophils (%) (Auto) [Pending], Lymphocytes (%) (Auto) [Pending], M onocytes (%) (Auto) [Pending], Eosinophils (%) (Auto) [Pending], Basophils (%) (Auto) [Pending], Sodium Level [Pending], Potassium Level [Pending], Chloride Level [Pending], Carbon Dioxide Level [Pending], Blood Urea Nitrogen [Pending], Creatinine [Pending], Estimat Glomerular Filtration Rate [Pending], Glucose Level [Pending], Calcium Level [Pending], Iron Level [Pending], Unsaturated Iron Binding [Pending], Total Bilirubin [Pending], Aspartate Amino Transf (AST/SGOT) [Pending], Alanine Aminotransferase (ALT/SGPT) [Pending], Alkaline Phosphatase [Pending], Total Protein [Pending], Albumin [Pending], Globulin [Pending], Thyroid Stimulating Hormone (TSH) [Pending] Height (Feet): 5 Height (Inches): 0.00 Weight (Pounds): 100 Objective Physical Exam Vitals: noted Sp02 EP Interpretation: reviewed, normal General Appearance: Chronically Ill Head: normocephalic, atraumatic eyes closed, dry mucus membranes Neck: no bony tend - rigidity, tracheotomy Respiratory: no respiratory distress, crackles, rhonchi CV: regular rate, rhythm Gastrointestinal: no guarding, distended - slightly, other - J tube, decreased bowel sounds Genitourinary: other - suprapubic cath [place]: other - Multiple contractures all extremities Neurologic: other - unresponsive Psychiatric: other Skin: warm/dry Assessment/Plan Assessment/Plan: IM Covering Assessment and recs # Sepsis with potential UTI (urinary tract infection) with pyuria --> urinanalysis has been reviewed, with leuk esterase --> ABX vanc/zosyn --> smear has been reviewed # Malfunction of gastrostomy tube --> as per Gi # Functional quadriplegia --> stable # Dysfunctional jejunostomy tube. --> vegetative state with functional quadriplegia. # Tachycardic overnight --> ivfs --> atenolol # Hyponatremia --> as per renal # Respiratory failure s/p trach --> 2l nc --> as per pulm # Nonverbal status # Stage III decub --> per surgery # Dvt ppx lovenox sq Appreciate senior clinical consultant care, dw Shakir De La Cruz MD Feb 16, 2020 07:05
[2020-02-16 07:33] LABS: % IRON SATURATION 14 % (15-50); IRON 46 ug/dL (50-175); TOTAL IRON BINDING CAPACITY 335 ug/dL (250-450)
[2020-02-16 08:00] VITALS: BP 103/65
--- NOTE | 2020-02-16 09:02 | General Progress Note ---
Subjective ROS Limited/Unobtainable: No Allergies: Coded Allergies: CEPHALEXIN (Unverified Allergy, Unknown, 12/05/13) Objective Last 24 Hour Vital Signs Date Time Temp Pulse Resp B/P (MAP) Pulse Ox O2 Delivery O2 Flow Rate FiO2 02/16/20 07:00 98 18 100 T-Piece 5.0 28 02/16/20 07:00 100 T-Piece 5.0 28 02/16/20 04:00 99.0 86 109/58 (75) 02/16/20 04:00 97 02/16/20 01:22 97 T-Piece 5.0 28 02/16/20 00:00 119 02/16/20 00:00 108 115/65 02/16/20 00:00 98.2 84 108/65 (79) 02/15/20 21:00 Trach Collar 2.0 02/15/20 20:00 99.2 110 20 112/65 (81) 97 02/15/20 19:00 119 20 97 T-Piece 4.0 28 02/15/20 19:00 97 T-Piece 5.0 28 02/15/20 16:00 98.8 119 20 125/62 (83) 97 02/15/20 16:00 105 02/15/20 13:45 96 T-Piece 5.0 28 02/15/20 12:00 105 02/15/20 12:00 98.9 107 18 120/65 (83) 96 Intake and Output 02/15/20 02/16/20 19:00 07:00 Output Total 500 ml Balance -500 ml Output Urine Total 500 ml # Bowel Movements 1 Laboratory Tests 02/16/20 05:10: Sodium Level 134L, Potassium Level 5.0, Chloride Level 102, Carbon Dioxide Level 25, Anion Gap 7, Blood Urea Nitrogen 10, Creatinine 0.7, Estimat Glomerular Filtration Rate > 60, Glucose Level 131H, Calcium Level 8.9, Iron Level 46L, Total Iron Binding Capacity 335, Percent Iron Saturation 14L, Unsaturated Iron Binding 289, Total Bilirubin 0.2, Aspartate Amino Transf (AST/SGOT) 15, Alanine Aminotransferase (ALT/SGPT) 22, Alkaline Phosphatase 114, Total Protein 7.4, Albumin 3.3L, Globulin 4.1, Albumin/Globulin Ratio 0.8L, Thyroid Stimulating Hormone (TSH) 1.022 Height (Feet): 5 Height (Inches): 0.00 Weight (Pounds): 100 General Appearance: no apparent distress EENT: normal ENT inspection Neck: supple Cardiovascular: normal rate Respiratory/Chest: decreased breath sounds Abdomen: normal bowel sounds, non tender, soft Extremities: non-tender Assessment/Plan Problem List: (1) Malfunction of gastrostomy tube ICD Codes: K94.23 - Gastrostomy malfunction SNOMED: 754105051 (2) UTI (urinary tract infection) ICD Codes: N39.0 - Urinary tract infection, site not specified SNOMED: 39291938 Qualifiers: Qualified Codes: T83.510A - Infection and inflammatory reaction due to cystostomy catheter, initial encounter; N39.0 - Urinary tract infection, site not specified (3) Functional quadriplegia ICD Codes: R53.2 - Functional quadriplegia SNOMED: 955919406408426 (4) Fever ICD Codes: R50.9 - Fever, unspecified SNOMED: 465614641 Assessment/Plan: GT has been changed and functioning anemia work up respiratory care will fu Husam Méndez MD Feb 16, 2020 09:02
[2020-02-16] MEDS: Docusate 100mg/10ml Liq GT SCH (09:23)
[2020-02-16] MEDS: Miralax 17gm pkt GT SCH (09:23)
[2020-02-16] MEDS: Lactobacillus-GG tablet GT SCH (09:24)
[2020-02-16] MEDS: Sucralfate 1gm tab GT SCH (09:24)
[2020-02-16] MEDS: Ascorbic Acid 500mg tab GT SCH (09:25)
[2020-02-16] MEDS: Enoxaparin 40mg Inj SUBQ SCH (09:46)
[2020-02-16 10:00] LABS: BASOPHILS % (AUTO) 1.8 % (0.0-2.0); EOSINOPHILS % (AUTO) 6.9 % (0.0-3.0); HEMATOCRIT 29.4 % (42.0-52.0); HEMOGLOBIN 9.4 G/DL (14.2-18.0); MEAN CORPUSCULAR VOLUME 87 FL (80-99); MONOCYTES % (AUTO) 9.3 % (1.0-10.0); NEUTROPHILS % (AUTO) 66.1 % (45.0-75.0); PLATELET COUNT 429 K/UL (150-450); RED BLOOD COUNT 3.38 M/UL (4.70-6.10); RED CELL DISTRIBUTION WIDTH 16.3 % (11.6-14.8); WHITE BLOOD COUNT 11.8 K/UL (4.8-10.8)
[2020-02-16 12:00] VITALS: BP 105/75
--- NOTE | 2020-02-16 13:25 | Pulmonology Progress Note ---
Subjective ROS Limited/Unobtainable: No Allergies: Coded Allergies: CEPHALEXIN (Unverified Allergy, Unknown, 12/05/13) Objective Last 24 Hour Vital Signs Date Time Temp Pulse Resp B/P (MAP) Pulse Ox O2 Delivery O2 Flow Rate FiO2 02/16/20 09:00 101 103/65 02/16/20 09:00 Trach Collar 2.0 02/16/20 08:00 89 02/16/20 08:00 98.1 101 21 103/65 (78) 96 02/16/20 07:00 98 18 100 T-Piece 5.0 28 02/16/20 07:00 100 T-Piece 5.0 28 02/16/20 04:00 99.0 86 109/58 (75) 02/16/20 04:00 97 02/16/20 01:22 97 T-Piece 5.0 28 02/16/20 00:00 119 02/16/20 00:00 108 115/65 02/16/20 00:00 98.2 84 108/65 (79) 02/15/20 21:00 Trach Collar 2.0 02/15/20 20:00 99.2 110 20 112/65 (81) 97 02/15/20 19:00 119 20 97 T-Piece 4.0 28 02/15/20 19:00 97 T-Piece 5.0 28 02/15/20 16:00 98.8 119 20 125/62 (83) 97 02/15/20 16:00 105 02/15/20 13:45 96 T-Piece 5.0 28 Intake and Output 02/15/20 02/16/20 19:00 07:00 Output Total 500 ml Balance -500 ml Output Urine Total 500 ml # Bowel Movements 1 Respiratory: decreased breath sounds Cardiovascular: normal rate Microbiology Date/Time Source Procedure Growth Status 02/15/20 01:32 Rectal Mucosa Received 02/14/20 19:30 Blood Blood Culture - Preliminary NO GROWTH AFTER 24 HOURS Resulted 02/14/20 19:15 Blood Blood Culture - Preliminary NO GROWTH AFTER 24 HOURS Resulted Laboratory Tests 02/16/20 05:10: Sodium Level 134L, Potassium Level 5.0, Chloride Level 102, Carbon Dioxide Level 25, Anion Gap 7, Blood Urea Nitrogen 10, Creatinine 0.7, Estimat Glomerular Filtration Rate > 60, Glucose Level 131H, Calcium Level 8.9, Iron Level 46L, Total Iron Binding Capacity 335, Percent Iron Saturation 14L, Unsaturated Iron Binding 289, Total Bilirubin 0.2, Aspartate Amino Transf (AST/SGOT) 15, Alanine Aminotransferase (ALT/SGPT) 22, Alkaline Phosphatase 114, Total Protein 7.4, Albumin 3.3L, Globulin 4.1, Albumin/Globulin Ratio 0.8L, Thyroid Stimulating Hormone (TSH) 1.022 02/16/20 09:45: White Blood Count 11.8H, Red Blood Count 3.38L, Hemoglobin 9.4L, Hematocrit 29 .4L, Mean Corpuscular Volume 87, Mean Corpuscular Hemoglobin 27.8, Mean Corpuscular Hemoglobin Concent 31.8L, Red Cell Distribution Width 16.3H, Platelet Count 429, Mean Platelet Volume 7.0, Neutrophils (%) (Auto) 66.1, Lymphocytes (%) (Auto) 16.0L, Monocytes (%) (Auto) 9.3, Eosinophils (%) (Auto) 6 .9H, Basophils (%) (Auto) 1.8, Vancomycin Level Trough 6.9 Current Medications Medications (Trade) Dose Ordered Sig/Kathryn Route PRN Reason Start Time Stop Time Status Last Admin Dose Admin Acetaminophen (Tylenol) 650 mg Q8H PRN GT Mild Pain (Pain Scale 1-3) 02/15/20 17:00 03/16/20 16:59 Acetaminophen (Tylenol) 650 mg Q8H PRN GT Temp >100.5 02/15/20 17:00 03/16/20 16:59 Acetaminophen (Tylenol) 650 mg Q8H PRN GT headache 02/15/20 17:00 03/16/20 16:59 Acetaminophen/ Hydrocodone Bitart ([place] 10/325) 1 tab Q4H PRN ORAL For Pain 4-10 02/15/20 05:45 02/22/20 05:44 Albuterol Sulfate (Proventil) 2.5 mg Q4H PRN HHN Shortness of Breath 02/15/20 05:45 02/20/20 05:44 Ascorbic Acid (Vitamin C) 500 mg DAILY GT 02/15/20 09:00 03/16/20 08:59 02/16/20 09:25 Atenolol (Tenormin) 50 mg DAILY GT 02/16/20 00:00 03/17/20 00:00 02/16/20 00:00 Docusate Sodium (Colace) 250 mg DAILY GT 02/15/20 09:00 03/16/20 08:59 02/16/20 09:23 Enoxaparin Sodium (Lovenox) 40 mg DAILY SUBQ 02/15/20 09:00 05/15/20 08:59 02/16/20 09:46 Lactobacillus Acidophilus (Culturelle) 1 tab DAILY GT 02/15/20 09:00 05/15/20 08:59 02/16/20 09:24 Lansoprazole (Prevacid) 30 mg DAILY GT 02/15/20 09:00 03/16/20 08:59 02/16/20 09:25 Piperacillin Sod/ Tazobactam Sod 3.375 gm/Sodium Chloride 110 ml @ 27.5 mls/hr EVERY 8 HOURS IVPB 02/15/20 14:00 02/20/20 13:59 02/16/20 07:03 Polyethylene Glycol (Miralax) 17 gm DAILY GT 02/15/20 09:00 03/16/20 08:59 02/16/20 09:23 Primidone (Mysoline) 50 mg TID GT 02/15/20 09:00 03/16/20 08:59 02/16/20 09:23 Sodium Chloride 1,000 ml @ 75 mls/hr [id number] IV 02/15/20 23:45 03/16/20 23:44 02/15/20 23:45 Sucralfate (Carafate) 1 gm DAILY GT 02/15/20 09:00 03/16/20 08:59 02/16/20 09:24 Vancomycin HCl (Vanco pharmacy to dose) 1 ea DAILY PRN MISC Per rx protocol 02/15/20 05:45 03/16/20 05:44 Vancomycin HCl 750 mg/Sodium Chloride 275 ml @ 183.333 mls/hr Q8H IVPB 02/16/20 12:00 02/21/20 11:59 Assessment/Plan Assessment/Plan 1. Urosepsis. 2. Chronic tracheostomy. 3. Multiple sclerosis. DISCUSSION: Agree with current management and care. The patient needs fluid hydration and broad spectrum antibiotics. We will continue T-piece with 5 liters of oxygen and pulmonary hygiene. We will follow. Freeman Canela NP Feb 16, 2020 13:25
--- NOTE | 2020-02-16 13:49 | Surgery Progress Note ---
Surgery Progress Note Subjective Additional Comments Leukocytosis, anemia, abnormal labs. Tube feed functional. Objective Last 24 Hour Vital Signs Date Time Temp Pulse Resp B/P (MAP) Pulse Ox O2 Delivery O2 Flow Rate FiO2 02/16/20 09:00 101 103/65 02/16/20 09:00 Trach Collar 2.0 02/16/20 08:00 89 02/16/20 08:00 98.1 101 21 103/65 (78) 96 02/16/20 07:00 98 18 100 T-Piece 5.0 28 02/16/20 07:00 100 T-Piece 5.0 28 02/16/20 04:00 99.0 86 109/58 (75) 02/16/20 04:00 97 02/16/20 01:22 97 T-Piece 5.0 28 02/16/20 00:00 119 02/16/20 00:00 108 115/65 02/16/20 00:00 98.2 84 108/65 (79) 02/15/20 21:00 Trach Collar 2.0 02/15/20 20:00 99.2 110 20 112/65 (81) 97 02/15/20 19:00 119 20 97 T-Piece 4.0 28 02/15/20 19:00 97 T-Piece 5.0 28 02/15/20 16:00 98.8 119 20 125/62 (83) 97 02/15/20 16:00 105 I&O Intake and Output 02/15/20 02/16/20 19:00 07:00 Output Total 500 ml Balance -500 ml Output Urine Total 500 ml # Bowel Movements 1 Dressing: saturated Cardiovascular: RSR Respiratory: decreased breath sounds Abdomen: soft, non-tender, present bowel sounds Extremities: edema, no tenderness, no cyanosis Laboratory Tests Test 02/16/20 05:10 02/16/20 09:45 Sodium Level 134 MMOL/L (136-145) L Potassium Level 5.0 MMOL/L (3.5-5.1) Chloride Level 102 MMOL/L (98-107) Carbon Dioxide Level 25 MMOL/L (21-32) Anion Gap 7 mmol/L (5-15) Blood Urea Nitrogen 10 mg/dL (7-18) Creatinine 0.7 MG/DL (0.55-1.30) Estimat Glomerular Filtration Rate > 60 mL/min (>60) Glucose Level 131 MG/DL (74-106) H Calcium Level 8.9 MG/DL (8.5-10.1) Iron Level 46 ug/dL (50-175) L Total Iron Binding Capacity 335 ug/dL (250-450) Percent Iron Saturation 14 % (15-50) L Unsaturated Iron Binding 289 ug/dL (112-346) Total Bilirubin 0.2 MG/DL (0.2-1.0) Aspartate Amino Transf (AST/SGOT) 15 U/L (15-37) Alanine Aminotransferase (ALT/SGPT) 22 U/L (12-78) Alkaline Phosphatase 114 U/L (46-116) Total Protein 7.4 G/DL (6.4-8.2) Albumin 3.3 G/DL (3.4-5.0) L Globulin 4.1 g/dL Albumin/Globulin Ratio 0.8 (1.0-2.7) L Thyroid Stimulating Hormone (TSH) 1.022 uiU/mL (0.358-3.740) White Blood Count 11.8 K/UL (4.8-10.8) H Red Blood Count 3.38 M/UL (4.70-6.10) L Hemoglobin 9.4 G/DL (14.2-18.0) L Hematocrit 29.4 % (42.0-52.0) L Mean Corpuscular Volume 87 FL (80-99) Mean Corpuscular Hemoglobin 27.8 PG (27.0-31.0) Mean Corpuscular Hemoglobin Concent 31.8 G/DL (32.0-36.0) L Red Cell Distribution Width 16.3 % (11.6-14.8) H Platelet Count 429 K/UL (150-450) Mean Platelet Volume 7.0 FL (6.5-10.1) Neutrophils (%) (Auto) 66.1 % (45.0-75.0) Lymphocytes (%) (Auto) 16.0 % (20.0-45.0) L Monocytes (%) (Auto) 9.3 % (1.0-10.0) Eosinophils (%) (Auto) 6.9 % (0.0-3.0) H Basophils (%) (Auto) 1.8 % (0.0-2.0) Vancomycin Level Trough 6.9 ug/mL (5.0-12.0) Plan Problems: (1) Functional quadriplegia (2) UTI (urinary tract infection) (3) Malfunction of gastrostomy tube Assessment & Plan: g tube changed and now functional tolerating meds and tf bowel function bowel regimen nutritional optimization DAILY ESTIMATED NEEDS: Needs based on wound, pulmonary/ 66.7kg 25-30 kcals/kg total kcals 1.25-1.8 g protein/kg 83-120 g total protein 25-30 mL/kg total fluid mLs NUTRITION DIAGNOSIS: * Increased kcal/prot/micronutrients needs R/T wound healing as evidenced by pt admitted w/ stage 3 wounds @ sacrum and R gluteal fold. * Swallowing difficulty R/T dysphagia, respiratory status as evidenced by pt is on T-collar, Jtube dep. CURRENT TF:Glucerna 1.2 @70ml/hr x 20 hrs ENTERAL NUTRITION RECOMMENDATIONS: Glucerna 1.2 @ 70ml/hr x 20 hrs to provide 1400ml, 1680kcal, 86g prot, 1162ml free water * Maintain current TF: meets 100% est kcal/prot needs * HOB over 30 degrees/ water flush per MD ADDITIONAL RECOMMENDATIONS: * Maintain calibrated bedscale wt * Monitor lytes, replete as needed * Wound healing: TF @ goal meets 100% RDI Continue Vit C/ add ZnSO4 220mg QD x 10 days + Caio BID via Jtube * Monitor BGs, need for NISS (4) Fever (5) Fever (6) Fever (7) Hematuria (8) Tachycardia (9) Sepsis (10) Abnormal urogenital findings (11) Encounter for care related to feeding tube (12) Decubitus skin ulcer Assessment & Plan: Patient identified admission of multiple areas of skin breakdown mainly moisture related pressure injuries as well. Patient evaluated care plan initiated wounds washed dressings applied protocol initiated no deep wounds no abscess no cellulitis. Local wound care will be initiated offload pressure nutritional optimization Tacho Fagan Feb 16, 2020 13:49
[2020-02-16] MEDS: Vancomycin 750mg/NS 275ml IVPB SCH ×4 (14:18→21:43)
[2020-02-16] MEDS ORDERED: Ipratropium 0.02% Inh Soln 2.5ml UD HHN PRN (14:45)
--- NOTE | 2020-02-16 15:30 | Cardiology Progress Note ---
Subjective DATE OF SERVICE: Feb 16, 2020 On T-tube with low flow oxygen. No respiratory distress Defervescing Monitor: sinus with fewer episodes of tachycardia. Objective Last 24 Hour Vital Signs Date Time Temp Pulse Resp B/P (MAP) Pulse Ox O2 Delivery O2 Flow Rate FiO2 02/16/20 12:00 92 02/16/20 12:00 96.8 102 22 105/75 (85) 98 02/16/20 09:00 101 103/65 02/16/20 09:00 Trach Collar 2.0 02/16/20 08:00 89 02/16/20 08:00 98.1 101 21 103/65 (78) 96 02/16/20 07:00 98 18 100 T-Piece 5.0 28 02/16/20 07:00 100 T-Piece 5.0 28 02/16/20 04:00 99.0 86 109/58 (75) 02/16/20 04:00 97 02/16/20 01:22 97 T-Piece 5.0 28 02/16/20 00:00 119 02/16/20 00:00 108 115/65 02/16/20 00:00 98.2 84 108/65 (79) 02/15/20 21:00 Trach Collar 2.0 02/15/20 20:00 99.2 110 20 112/65 (81) 97 02/15/20 19:00 119 20 97 T-Piece 4.0 28 02/15/20 19:00 97 T-Piece 5.0 28 02/15/20 16:00 98.8 119 20 125/62 (83) 97 02/15/20 16:00 105 HEENT: Thin Trach secretions RHYTHM: NSR, ST LUNGS: no wheezing, bilateral rhonchi - few CARDIAC: regular rhythm, normal S1 and S2, tachycardia ABDOMEN: normal bowel sounds, non tender, soft, no organomegaly, G-Tube intact EXTREMITIES: normal inspection, no calf tenderness, trace edema Laboratory Tests Test 02/16/20 05:10 02/16/20 09:45 Sodium Level 134 MMOL/L (136-145) L Potassium Level 5.0 MMOL/L (3.5-5.1) Chloride Level 102 MMOL/L (98-107) Carbon Dioxide Level 25 MMOL/L (21-32) Anion Gap 7 mmol/L (5-15) Blood Urea Nitrogen 10 mg/dL (7-18) Creatinine 0.7 MG/DL (0.55-1.30) Estimat Glomerular Filtration Rate > 60 mL/min (>60) Glucose Level 131 MG/DL (74-106) H Calcium Level 8.9 MG/DL (8.5-10.1) Iron Level 46 ug/dL (50-175) L Total Iron Binding Capacity 335 ug/dL (250-450) Percent Iron Saturation 14 % (15-50) L Unsaturated Iron Binding 289 ug/dL (112-346) Total Bilirubin 0.2 MG/DL (0.2-1.0) Aspartate Amino Transf (AST/SGOT) 15 U/L (15-37) Alanine Aminotransferase (ALT/SGPT) 22 U/L (12-78) Alkaline Phosphatase 114 U/L (46-116) Total Protein 7.4 G/DL (6.4-8.2) Albumin 3.3 G/DL (3.4-5.0) L Globulin 4.1 g/dL Albumin/Globulin Ratio 0.8 (1.0-2.7) L Thyroid Stimulating Hormone (TSH) 1.022 uiU/mL (0.358-3.740) White Blood Count 11.8 K/UL (4.8-10.8) H Red Blood Count 3.38 M/UL (4.70-6.10) L Hemoglobin 9.4 G/DL (14.2-18.0) L Hematocrit 29.4 % (42.0-52.0) L Mean Corpuscular Volume 87 FL (80-99) Mean Corpuscular Hemoglobin 27.8 PG (27.0-31.0) Mean Corpuscular Hemoglobin Concent 31.8 G/DL (32.0-36.0) L Red Cell Distribution Width 16.3 % (11.6-14.8) H Platelet Count 429 K/UL (150-450) Mean Platelet Volume 7.0 FL (6.5-10.1) Neutrophils (%) (Auto) 66.1 % (45.0-75.0) Lymphocytes (%) (Auto) 16.0 % (20.0-45.0) L Monocytes (%) (Auto) 9.3 % (1.0-10.0) Eosinophils (%) (Auto) 6.9 % (0.0-3.0) H Basophils (%) (Auto) 1.8 % (0.0-2.0) Vancomycin Level Trough 6.9 ug/mL (5.0-12.0) Microbiology Date/Time Source Procedure Growth Status 02/15/20 01:32 Rectal Mucosa Received 02/14/20 19:30 Blood Blood Culture - Preliminary NO GROWTH AFTER 24 HOURS Resulted 02/14/20 19:15 Blood Blood Culture - Preliminary NO GROWTH AFTER 24 HOURS Resulted Assessment/Plan Assessment/Plan Sepsis due to UTI Respiratory failure Sinus tachycardia Mult sclerosis with veg state Hypovolemia with electrolyte abn Resp care Beta blockers Abx Isotonic IVF Avoid albuterol Roberto Weinberg MD Feb 16, 2020 15:30
[2020-02-16 16:00] VITALS: BP 120/68
--- NOTE | 2020-02-16 17:53 | Cardiology Report ---
APPROVED REPORT EKG Measurement Heart [id number] <Conclusion> Sinus tachycardia Otherwise normal ECG
[2020-02-16 20:00] VITALS: BP 110/67
[2020-02-17] VITALS: BP 108/63
[2020-02-17 04:00] VITALS: BP 95/56
[2020-02-17] MEDS: Zosyn 3.375gm q8h **Extended infusion IVPB SCH ×6 (05:19→21:39)
[2020-02-17] MEDS: Vancomycin 750mg/NS 275ml IVPB SCH ×6 (05:19→20:00)
[2020-02-17 08:00] VITALS: BP 114/65
--- NOTE | 2020-02-17 09:17 | General Progress Note ---
Subjective Constitutional: Denies: no symptoms, chills, diaphoresis, fever, malaise, weakness, other HEENT: Denies: no symptoms, eye pain, blurred vision, tearing, double vision, ear pain, ear discharge, nose pain, nose congestion, throat pain, throat swelling, mouth pain, mouth swelling, other Cardiovascular: Denies: no symptoms, chest pain, edema, irregular heart rate, lightheadedness, palpitations, syncope, other Gastrointestinal/Abdominal: Denies: no symptoms, abdomen distended, abdominal pain, black stools, tarry stools, blood in stool, constipated, diarrhea, difficulty swallowing, nausea, poor appetite, poor fluid intake, rectal bleeding, vomiting, other Genitourinary: Denies: no symptoms, burning, discharge, frequency, flank pain, hematuria, incontinence, pain, urgency, other Neurologic/Psychiatric: Denies: no symptoms, anxiety, depressed, emotional problems, headache, numbness, paresthesia, pre-existing deficit, seizure, tingling, tremors, weakness, other Endocrine: Denies: no symptoms, excessive sweating, flushing, intolerance to cold, intolerance to heat, increased hunger, increased thirst, increased urine, unexplained weight gain, unexplained weight loss, other Allergies: Coded Allergies: CEPHALEXIN (Unverified Allergy, Unknown, 12/05/13) Subjective 02/15 tachycardic overnight, with bp mildly elev, reviewed cards recs 02/16 less tachycardia, meds reviewed, nonverbal, gtube functional, 2l tpiece Objective Last 24 Hour Vital Signs Date Time Temp Pulse Resp B/P (MAP) Pulse Ox O2 Delivery O2 Flow Rate FiO2 02/17/20 06:01 99.7 02/17/20 04:00 90 02/17/20 04:00 99.0 71 20 95/56 (69) 99 02/17/20 01:00 98 T-Piece 5.0 28 02/17/20 00:00 100.2 93 20 108/63 (78) 96 02/17/20 00:00 94 02/16/20 21:00 Trach Collar 2.0 02/16/20 20:00 98.7 95 24 110/67 (81) 97 02/16/20 20:00 98 02/16/20 19:14 97 T-Piece 5.0 02/16/20 19:13 101 18 97 T-Piece 5.0 02/16/20 16:00 90 02/16/20 16:00 98.6 94 21 120/68 (85) 97 02/16/20 13:00 99 T-Piece 5.0 02/16/20 12:00 92 02/16/20 12:00 96.8 102 22 105/75 (85) 98 Intake and Output 02/16/20 02/17/20 19:00 07:00 Intake Total 145 ml 1922.499 ml Output Total 600 ml Balance 145 ml 1322.499 ml Intake Free Water 60 ml IV Total 75 ml 1512.499 ml Tube Feeding 70 ml 350 ml Output Urine Total 600 ml Laboratory Tests 02/16/20 09:45: White Blood Count 11.8H, Red Blood Count 3.38L, Hemoglobin 9.4L, Hematocrit 29.4L, Mean Corpuscular Volume 87, Mean Corpuscular Hemoglobin 27.8, Mean Corpuscular Hemoglobin Concent 31.8L, Red Cell Distribution Width 16.3H, Platelet Count 429, Mean Platelet Volume 7.0, Neutrophils (%) (Auto) 66.1, Lymphocytes (%) (Auto) 16.0L, Monocytes (%) (Auto) 9.3, Eosinophils (%) (Auto) 6.9H, Basophils (%) (Auto) 1.8, Vancomycin Level Trough 6.9 Height (Feet): 5 Height (Inches): 0.00 Weight (Pounds): 100 Objective Physical Exam Vitals: noted Sp02 EP Interpretation: reviewed, normal General Appearance: Chronically Ill Head: normocephalic, atraumatic eyes closed, dry mucus membranes Neck: no bony tend - rigidity, tracheotomy Respiratory: no respiratory distress, crackles, rhonchi 2L tpiece++ CV: regular rate, rhythm Gastrointestinal: no guarding, distended - slightly, other - J tube, decreased bowel sounds Genitourinary: other - suprapubic cath [place]: other - Multiple contractures all extremities Neurologic: other - unresponsive Psychiatric: other Skin: warm/dry Assessment/Plan Assessment/Plan: IM Covering Assessment and recs # Sepsis with potential UTI (urinary tract infection) with pyuria --> urinanalysis has been reviewed, with leuk esterase --> ABX vanc/zosyn --> smear has been reviewed # Malfunction of gastrostomy tube --> as per Gi # Functional quadriplegia --> stable # Dysfunctional jejunostomy tube. --> vegetative state with functional quadriplegia. # Tachycardic overnight --> ivfs --> atenolol # Hyponatremia --> as per renal # Respiratory failure s/p trach --> 2l nc --> as per pulm # Nonverbal status # Stage III decub --> per surgery # Dvt ppx lovenox sq Appreciate product development consultant care, dw Shakir De La Cruz MD Feb 17, 2020 09:17
[2020-02-17] MEDS: Ascorbic Acid 500mg tab GT SCH (09:20)
[2020-02-17] MEDS: Sucralfate 1gm tab GT SCH (09:20)
[2020-02-17] MEDS: Miralax 17gm pkt GT SCH (09:21)
[2020-02-17] MEDS: Lactobacillus-GG tablet GT SCH (09:21)
[2020-02-17] MEDS: Docusate 100mg/10ml Liq GT SCH (09:21)
[2020-02-17] MEDS: Enoxaparin 40mg Inj SUBQ SCH (09:23)
[2020-02-17 12:00] VITALS: BP 115/64
--- NOTE | 2020-02-17 13:34 | Pulmonology Progress Note ---
Subjective ROS Limited/Unobtainable: No Allergies: Coded Allergies: CEPHALEXIN (Unverified Allergy, Unknown, 12/05/13) Objective Last 24 Hour Vital Signs Date Time Temp Pulse Resp B/P (MAP) Pulse Ox O2 Delivery O2 Flow Rate FiO2 02/17/20 12:00 98.1 80 22 115/64 (81) 99 02/17/20 09:21 81 114/65 02/17/20 09:00 Trach Collar 2.0 02/17/20 08:00 99.7 81 22 114/65 (81) 99 02/17/20 08:00 87 02/17/20 06:01 99.7 02/17/20 04:00 90 02/17/20 04:00 99.0 71 20 95/56 (69) 99 02/17/20 01:00 98 T-Piece 5.0 28 02/17/20 00:00 100.2 93 20 108/63 (78) 96 02/17/20 00:00 94 02/16/20 21:00 Trach Collar 2.0 02/16/20 20:00 98.7 95 24 110/67 (81) 97 02/16/20 20:00 98 02/16/20 19:14 97 T-Piece 5.0 28 02/16/20 19:13 101 18 97 T-Piece 5.0 28 02/16/20 16:00 90 02/16/20 16:00 98.6 94 21 120/68 (85) 97 Intake and Output 02/16/20 02/17/20 19:00 07:00 Intake Total 145 ml 1922.499 ml Output Total 600 ml Balance 145 ml 1322.499 ml Intake Free Water 60 ml IV Total 75 ml 1512.499 ml Tube Feeding 70 ml 350 ml Output Urine Total 600 ml Respiratory: chest wall non-tender, decreased breath sounds Cardiovascular: normal rate Microbiology Date/Time Source Procedure Growth Status 02/15/20 01:32 Rectum - Final NO CARBAPENEM-RESISTANT ENTEROBACTERI... Complete 02/15/20 01:32 Rectal Mucosa VRE Culture - Final Enterococcus Faecium - Vre Complete 02/14/20 19:30 Blood Blood Culture - Preliminary NO GROWTH AFTER 24 HOURS Resulted 02/14/20 19:15 Blood Blood Culture - Preliminary NO GROWTH AFTER 24 HOURS Resulted Laboratory Tests 02/17/20 11:15: Vancomycin Level Trough 12.9H Current Medications Medications (Trade) Dose Ordered Sig/Kathryn Route PRN Reason Start Time Stop Time Status Last Admin Dose Admin Acetaminophen (Tylenol) 650 mg Q8H PRN GT Temp >100.5 02/15/20 17:00 03/16/20 16:59 02/17/20 05:31 Acetaminophen (Tylenol) 650 mg Q8H PRN GT Mild Pain (Pain Scale 1-3) 02/15/20 17:00 03/16/20 16:59 Acetaminophen (Tylenol) 650 mg Q8H PRN GT headache 02/15/20 17:00 03/16/20 16:59 Acetaminophen/ Hydrocodone Bitart ([place] 10/325) 1 tab Q4H PRN ORAL For Pain 4-10 02/15/20 05:45 02/22/20 05:44 Ascorbic Acid (Vitamin C) 500 mg DAILY GT 02/15/20 09:00 03/16/20 08:59 02/17/20 09:20 Atenolol (Tenormin) 50 mg DAILY GT 02/16/20 00:00 03/17/20 00:00 02/17/20 09:21 Docusate Sodium (Colace) 250 mg DAILY GT 02/15/20 09:00 03/16/20 08:59 02/17/20 09:21 Enoxaparin Sodium (Lovenox) 40 mg DAILY SUBQ 02/15/20 09:00 05/15/20 08:59 02/17/20 09:23 Ipratropium [place] (Atrovent) 500 mcg Q4H PRN HHN Shortness of Breath 02/16/20 14:45 02/21/20 14:44 Lactobacillus Acidophilus (Culturelle) 1 tab DAILY GT 02/15/20 09:00 05/15/20 08:59 02/17/20 09:21 Lansoprazole (Prevacid) 30 mg DAILY GT 02/15/20 09:00 03/16/20 08:59 02/17/20 09:21 Piperacillin Sod/ Tazobactam Sod 3.375 gm/Sodium Chloride 110 ml @ 27.5 mls/hr EVERY 8 HOURS IVPB 02/15/20 14:00 02/20/20 13:59 02/17/20 05:19 Polyethylene Glycol (Miralax) 17 gm DAILY GT 02/15/20 09:00 03/16/20 08:59 02/17/20 09:21 Primidone (Mysoline) 50 mg TID GT 02/15/20 09:00 03/16/20 08:59 02/17/20 13:19 Sodium Chloride 1,000 ml @ 75 mls/hr [id number] IV 02/15/20 23:45 03/16/20 23:44 02/15/20 23:45 Sucralfate (Carafate) 1 gm DAILY GT 02/15/20 09:00 03/16/20 08:59 02/17/20 09:20 Vancomycin HCl (Vanco pharmacy to dose) 1 ea DAILY PRN MISC Per rx protocol 02/15/20 05:45 03/16/20 05:44 Vancomycin HCl 750 mg/Sodium Chloride 275 ml @ 183.333 mls/hr Q8H IVPB 02/16/20 12:00 02/21/20 11:59 02/17/20 13:12 Assessment/Plan Assessment/Plan 1. Urosepsis. 2. Chronic tracheostomy. 3. Multiple sclerosis. 4. GT Feeding 5. Bilateral BTK amputation DISCUSSION: Agree with current management and care. Continue Antibiotics. continue T-piece with 5 liters of oxygen and pulmonary hygiene. We will follow. The above treatment was discussed with supervising physician. Freeman Canela [employer] Feb 17, 2020 13:34
--- NOTE | 2020-02-17 14:38 | Surgery Progress Note ---
Surgery Progress Note Subjective Additional Comments low grade fevers leukocytosis no n/v Objective Last 24 Hour Vital Signs Date Time Temp Pulse Resp B/P (MAP) Pulse Ox O2 Delivery O2 Flow Rate FiO2 02/17/20 12:00 98.1 80 22 115/64 (81) 99 02/17/20 09:21 81 114/65 02/17/20 09:00 Trach Collar 2.0 02/17/20 08:00 99.7 81 22 114/65 (81) 99 02/17/20 08:00 87 02/17/20 06:01 99.7 02/17/20 04:00 90 02/17/20 04:00 99.0 71 20 95/56 (69) 99 02/17/20 01:00 98 T-Piece 5.0 28 02/17/20 00:00 100.2 93 20 108/63 (78) 96 02/17/20 00:00 94 02/16/20 21:00 Trach Collar 2.0 02/16/20 20:00 98.7 95 24 110/67 (81) 97 02/16/20 20:00 98 02/16/20 19:14 97 T-Piece 5.0 02/16/20 19:13 101 18 97 T-Piece 5.0 28 02/16/20 16:00 90 02/16/20 16:00 98.6 94 21 120/68 (85) 97 I&O Intake and Output 02/16/20 02/17/20 19:00 07:00 Intake Total 145 ml 1922.499 ml Output Total 600 ml Balance 145 ml 1322.499 ml Intake Free Water 60 ml IV Total 75 ml 1512.499 ml Tube Feeding 70 ml 350 ml Output Urine Total 600 ml Dressing: saturated Cardiovascular: RSR Respiratory: decreased breath sounds Abdomen: non-tender, present bowel sounds, non-distended Extremities: edema, no tenderness, no cyanosis Laboratory Tests Test 02/17/20 11:15 Vancomycin Level Trough 12.9 ug/mL (5.0-12.0) H Plan Problems: (1) Functional quadriplegia (2) UTI (urinary tract infection) (3) Malfunction of gastrostomy tube Assessment & Plan: g tube changed and now functional tolerating meds and tf bowel function bowel regimen nutritional optimization DAILY ESTIMATED NEEDS: Needs based on wound, pulmonary/ 66.7kg 25-30 kcals/kg total kcals 1.25-1.8 g protein/kg 83-120 g total protein 25-30 mL/kg total fluid mLs NUTRITION DIAGNOSIS: * Increased kcal/prot/micronutrients needs R/T wound healing as evidenced by pt admitted w/ stage 3 wounds @ sacrum and R gluteal fold. * Swallowing difficulty R/T dysphagia, respiratory status as evidenced by pt is on T-collar, Jtube dep. CURRENT TF:Glucerna 1.2 @70ml/hr x 20 hrs ENTERAL NUTRITION RECOMMENDATIONS: Glucerna 1.2 @ 70ml/hr x 20 hrs to provide 1400ml, 1680kcal, 86g prot, 1162ml free water * Maintain current TF: meets 100% est kcal/prot needs * HOB over 30 degrees/ water flush per MD ADDITIONAL RECOMMENDATIONS: * Maintain calibrated bedscale wt * Monitor lytes, replete as needed * Wound healing: TF @ goal meets 100% RDI Continue Vit C/ add ZnSO4 220mg QD x 10 days + Caio BID via Jtube * Monitor BGs, need for NISS (4) Fever (5) Fever (6) Fever (7) Hematuria (8) Tachycardia (9) Sepsis (10) Abnormal urogenital findings (11) Encounter for care related to feeding tube (12) Decubitus skin ulcer Assessment & Plan: Patient identified admission of multiple areas of skin breakdown mainly moisture related pressure injuries as well. Patient evaluated care plan initiated wounds washed dressings applied protocol initiated no deep wounds no abscess no cellulitis. Local wound care will be initiated offload pressure nutritional optimization Tacho Fagan Feb 17, 2020 14:38
[2020-02-17 16:00] VITALS: BP 130/73
--- NOTE | 2020-02-17 17:24 | Cardiology Progress Note ---
Subjective DATE OF SERVICE: Feb 17, 2020 On T-tube with low flow oxygen. No respiratory distress Defervescing Monitor: sinus rhythm with rare ectopics. Objective Last 24 Hour Vital Signs Date Time Temp Pulse Resp B/P (MAP) Pulse Ox O2 Delivery O2 Flow Rate FiO2 02/17/20 16:00 98.1 78 20 130/73 (92) 99 02/17/20 16:00 82 02/17/20 12:00 98.1 80 22 115/64 (81) 99 02/17/20 12:00 69 02/17/20 09:21 81 114/65 02/17/20 09:00 Trach Collar 2.0 02/17/20 08:00 99.7 81 22 114/65 (81) 99 02/17/20 08:00 87 02/17/20 06:01 99.7 02/17/20 04:00 90 02/17/20 04:00 99.0 71 20 95/56 (69) 99 02/17/20 01:00 98 T-Piece 5.0 28 02/17/20 00:00 100.2 93 20 108/63 (78) 96 02/17/20 00:00 94 02/16/20 21:00 Trach Collar 2.0 02/16/20 20:00 98.7 95 24 110/67 (81) 97 02/16/20 20:00 98 02/16/20 19:14 97 T-Piece 5.0 02/16/20 19:13 101 18 97 T-Piece 5.0 28 HEENT: Thin Trach secretions RHYTHM: NSR, ST LUNGS: no wheezing, bilateral rhonchi - few CARDIAC: regular rhythm, normal S1 and S2, tachycardia ABDOMEN: normal bowel sounds, non tender, soft, no organomegaly, G-Tube intact EXTREMITIES: normal inspection, no calf tenderness, trace edema Laboratory Tests Test 02/17/20 11:15 Vancomycin Level Trough 12.9 ug/mL (5.0-12.0) H Microbiology Date/Time Source Procedure Growth Status 02/15/20 01:32 Rectum - Final NO CARBAPENEM-RESISTANT ENTEROBACTERI... Complete 02/15/20 01:32 Rectal Mucosa VRE Culture - Final Enterococcus Faecium - Vre Complete 02/14/20 19:30 Blood Blood Culture - Preliminary NO GROWTH AFTER 48 HOURS Resulted 11/25/20 19:15 Blood Blood Culture - Preliminary NO GROWTH AFTER 48 HOURS Resulted Assessment/Plan Assessment/Plan Sepsis due to UTI Respiratory failure Sinus tachycardia resolving Chronic encephalopathy Mult sclerosis with veg state Hypovolemia with electrolyte abn Resp care Beta blockers - titrate Abx Isotonic IVF - titrate Avoid albuterol Recheck lytes and replace accordingly Roberto Weinberg MD Feb 17, 2020 17:24
[2020-02-17 20:00] VITALS: BP 115/69
[2020-02-18] VITALS: BP 112/63
[2020-02-18 04:00] VITALS: BP 118/62
[2020-02-18] MEDS: Vancomycin 750mg/NS 275ml IVPB SCH ×6 (04:08→20:23)
[2020-02-18] MEDS: Zosyn 3.375gm q8h **Extended infusion IVPB SCH ×6 (05:44→21:20)
[2020-02-18 08:00] VITALS: BP 116/89
[2020-02-18] MEDS: Miralax 17gm pkt GT SCH (09:03)
[2020-02-18] MEDS: Sucralfate 1gm tab GT SCH (09:03)
[2020-02-18] MEDS: Ascorbic Acid 500mg tab GT SCH (09:04)
[2020-02-18] MEDS: Lactobacillus-GG tablet GT SCH (09:04)
[2020-02-18] MEDS: Docusate 100mg/10ml Liq GT SCH (09:05)
[2020-02-18 09:07] LABS: BASOPHILS % (AUTO) 1.1 % (0.0-2.0); EOSINOPHILS % (AUTO) 7.9 % (0.0-3.0); HEMATOCRIT 30.5 % (42.0-52.0); HEMOGLOBIN 10.1 G/DL (14.2-18.0); LYMPHOCYTES % (AUTO) 19.3 % (20.0-45.0); MEAN CORPUSCULAR VOLUME 85 FL (80-99); MONOCYTES % (AUTO) 5.1 % (1.0-10.0); NEUTROPHILS % (AUTO) 66.6 % (45.0-75.0); PLATELET COUNT 386 K/UL (150-450); RED BLOOD COUNT 3.57 M/UL (4.70-6.10); RED CELL DISTRIBUTION WIDTH 17.3 % (11.6-14.8); WHITE BLOOD COUNT 8.6 K/UL (4.8-10.8)
[2020-02-18] MEDS: Enoxaparin 40mg Inj SUBQ SCH (09:08)
[2020-02-18 09:25] LABS: ALANINE AMINOTRANSFERASE 23 U/L (12-78); ALBUMIN 3.1 G/DL (3.4-5.0); ALBUMIN/GLOBULIN RATIO 0.7 (1.0-2.7); ALKALINE PHOSPHATASE 109 U/L (46-116); ANION GAP 3 mmol/L (5-15); ASPARTATE AMINO TRANSFERASE 15 U/L (15-37); BILIRUBIN,TOTAL 0.2 MG/DL (0.2-1.0); BLOOD UREA NITROGEN 8 mg/dL (7-18); CALCIUM 8.8 MG/DL (8.5-10.1); CARBON DIOXIDE 28 MMOL/L (21-32); CHLORIDE 102 MMOL/L (98-107); CREATININE 0.5 MG/DL (0.55-1.30); POTASSIUM 4.6 MMOL/L (3.5-5.1); SODIUM 133 MMOL/L (136-145)
--- NOTE | 2020-02-18 09:37 | General Progress Note ---
Subjective Constitutional: Denies: no symptoms, chills, diaphoresis, fever, malaise, weakness, other HEENT: Denies: no symptoms, eye pain, blurred vision, tearing, double vision, ear pain, ear discharge, nose pain, nose congestion, throat pain, throat swelling, mouth pain, mouth swelling, other Cardiovascular: Denies: no symptoms, chest pain, edema, irregular heart rate, lightheadedness, palpitations, syncope, other Gastrointestinal/Abdominal: Denies: no symptoms, abdomen distended, abdominal pain, black stools, tarry stools, blood in stool, constipated, diarrhea, difficulty swallowing, nausea, poor appetite, poor fluid intake, rectal bleeding, vomiting, other Genitourinary: Denies: no symptoms, burning, discharge, frequency, flank pain, hematuria, incontinence, pain, urgency, other Endocrine: Denies: no symptoms, excessive sweating, flushing, intolerance to cold, intolerance to heat, increased hunger, increased thirst, increased urine, unexplained weight gain, unexplained weight loss, other Hematologic/Lymphatic: Denies: no symptoms, anemia, easy bleeding, easy bruising, other Allergies: Coded Allergies: CEPHALEXIN (Unverified Allergy, Unknown, 12/05/13) Subjective 02/15 tachycardic overnight, with bp mildly elev, reviewed cards recs 02/16 less tachycardia, meds reviewed, nonverbal, gtube functional, 2l tpiece 02/17 labs are noted, on restraints, with gtube feeds, meds noted Objective Last 24 Hour Vital Signs Date Time Temp Pulse Resp B/P (MAP) Pulse Ox O2 Delivery O2 Flow Rate FiO2 02/18/20 09:04 81 116/69 02/18/20 08:00 98.3 81 21 116/89 (98) 100 02/18/20 07:50 89 18 97 T-Piece 5.0 02/18/20 07:50 97 T-Piece 5.0 02/18/20 04:00 99.0 90 20 118/62 (80) 100 02/18/20 04:00 62 02/18/20 01:07 98 T-Piece 5.0 02/18/20 00:00 82 02/18/20 00:00 98.2 87 20 112/63 (79) 100 02/17/20 21:00 Trach Collar 2.0 02/17/20 20:00 99.0 85 20 115/69 (84) 100 02/17/20 19:11 97 18 100 T-Piece 5.0 02/17/20 19:11 100 T-Piece 5.0 02/17/20 16:00 98.1 78 20 130/73 (92) 99 02/17/20 16:00 82 02/17/20 12:00 98.1 80 22 115/64 (81) 99 02/17/20 12:00 69 Laboratory Tests 02/17/20 11:15: Vancomycin Level Trough 12.9H 02/18/20 08:05: White Blood Count 8.6, Red Blood Count 3.57L, Hemoglobin 10.1L, Hematocrit 30.5L , Mean Corpuscular Volume 85, Mean Corpuscular Hemoglobin 28.3, Mean Corpuscular Hemoglobin Concent 33.1, Red Cell Distribution Width 17.3H, Platelet Count 386, Mean Platelet Volume 6.8, Neutrophils (%) (Auto) 66.6, Lymphocytes (%) (Auto) 19.3L, Monocytes (%) (Auto) 5.1, Eosinophils (%) (Auto) 7.9H, Basophils (%) (Auto) 1.1, Sodium Level 133L, Potassium Level 4.6, Chloride Level 102, Carbon Dioxide Level 28, Anion Gap 3L, Blood Urea Nitrogen 8, Creatinine 0.5L, Estimat Glomerular Filtration Rate > 60, Glucose Level 146H, Calcium Level 8.8, Magnesium Level 2.1, Total Bilirubin 0.2, Aspartate Amino Transf (AST/SGOT) 15, Alanine Aminotransferase (ALT/SGPT) 23, Alkaline Phosphatase 109, Total Protein 7.7, Albumin 3.1L, Globulin 4.6, Albumin/Globulin Ratio 0.7L Height (Feet): 5 Height (Inches): 0.00 Weight (Pounds): 100 Objective Physical Exam Vitals: noted Sp02 EP Interpretation: reviewed, normal General Appearance: Chronically Ill Head: normocephalic, atraumatic eyes closed, dry mucus membranes Neck: no bony tend - rigidity, tracheotomy Respiratory: no respiratory distress, crackles, rhonchi 2L tpiece++ CV: regular rate, rhythm Gastrointestinal: no guarding, distended - slightly, other - J tube, decreased bowel sounds Genitourinary: other - suprapubic cath Musk: other - Multiple contractures all extremities Neurologic: other - unresponsive Psychiatric: other Skin: warm/dry Assessment/Plan Assessment/Plan: IM Covering Assessment and recs # Sepsis with potential UTI (urinary tract infection) with pyuria --> urinanalysis has been reviewed, with leuk esterase --> ABX vanc/zosyn --> smear has been reviewed # Anemia of chronic disease --> anemia panel noted --> hgb 10 # Malfunction of gastrostomy tube --> as per Gi # Functional quadriplegia --> stable # Dysfunctional jejunostomy tube. --> vegetative state with functional quadriplegia. # Tachycardic overnight --> ivfs --> atenolol # Hyponatremia --> as per renal # Respiratory failure s/p trach --> 2l nc --> as per pulm # Nonverbal status # Stage III decub --> per surgery # Dvt ppx lovenox sq Appreciate dairy feed sales consultant care, dw Shakir De La Cruz MD Feb 18, 2020 09:37
[2020-02-18 12:00] VITALS: BP 119/61
--- NOTE | 2020-02-18 13:10 | Consultation ---
Consult Note Consult Note I am consulted on this patient for management of hyponatremia and electrolytes. Day 4 of patient's hospitalization here at [facility] Patient chart reviewed Patient examined Consultants notes reviewed Serum sodium between 04 21- from admission The patient's J-tube is not working. When they consider sending in for treatment of this they noted the patient was febrile. He had a temperature of 103. He has been febrile since Wednesday. We are Wednesday today. according to the ambulance crew the patient has rhonchi and also some snoring respirations. The J tube is in place but not functioning. The patient is in a vegetative state from multiple sclerosis. He has a tracheostomy, suprapubic catheter and also of the J-tube. In the past he is been admitted for sepsis from urinary source. Patient is unable to give a history at this time. Allergies: CEPHALEXIN (Unverified Allergy, Unknown, 12/05/13) COVID-19 Screening Contact w/high risk pt: Yes Experienced COVID-19 symptoms?: Yes COVID-19 Testing performed [employer]: Yes - 02/05/20 COVID-19 Screening: Negative COVID-19 COVID-19 Testing Source: unk Past Medical History: see triage record, old chart reviewed Past Surgical History: other - trach, suprapubic cath, J tube Social History Narrative SNF - full code Reviewed Nursing Documentation: PMH: Agreed; PSxH: Agreed Past Medical History: No History, Except For Hx Hypertension: Yes Hx Asthma: Yes Hx COPD: Yes Hx Diabetes: Yes Hx Gastrointestinal Problems: Yes - GERD Hx Neurological Problems: Yes - MULTIPLE SCLEROSIS Hx Cerebral Palsy: Yes VITAL SIGNS: Patient is on T-tube collar on 5 liters oxygen. No respiratory distress. Blood pressure 120/60, heart rate 110, respirations 21, temperature 100.8 max. HEENT: Thin secretions. LUNGS: Bilateral breath sounds. No wheezing or rales. CARDIAC: Regular rhythm. Rapid rate. Normal S1, S2 with no murmur or rub. ABDOMEN: Soft. J-tube is noted as well as suprapubic catheter. EXTREMITIES: No edema. Muscle atrophy. NEUROLOGIC: Patient is comatose. LABORATORY AND DIAGNOSTIC DATA: EKG, sinus tachycardia, no acute abnormalities. White count 10.6, hemoglobin 9.5. Sodium 131, potassium 4, bicarb 28, chloride 97, BUN 14, creatinine 0.7. Lactic acid 1.9. Troponin 0. Albumin 3.4. Urinalysis 30 to 40 white cells. Venous duplex negative for DVT. . Assessment/Plan Moderate hyponatremia, etiology to be identified other conditions: Chronic jejunostomy tube Chronic tracheostomy Malfunction of gastrostomy tube Functional quadriplegia Multiple sclerosis UTI, suprapubic catheter Chronic vegetative state Suggestions: Urine for spot sodium and osmolality Serum uric acid, TSH, lipid panel and osmolality Stop saline infusion for now Further recommendations based on above results Chris Miller MD Feb 18, 2020 13:10
--- NOTE | 2020-02-18 14:42 | Surgery Progress Note ---
Surgery Progress Note Subjective Additional Comments labs improved exam stable comfortable no n/v/f/c Objective Last 24 Hour Vital Signs Date Time Temp Pulse Resp B/P (MAP) Pulse Ox O2 Delivery O2 Flow Rate FiO2 02/18/20 13:03 97 T-Piece 5.0 28 02/18/20 09:04 81 116/69 02/18/20 09:00 Trach Collar 5.0 02/18/20 08:00 86 02/18/20 08:00 98.3 81 21 116/89 (98) 100 02/18/20 07:50 89 18 97 T-Piece 5.0 28 02/18/20 07:50 97 T-Piece 5.0 28 02/18/20 04:00 99.0 90 20 118/62 (80) 100 02/18/20 04:00 62 02/18/20 01:07 98 T-Piece 5.0 28 02/18/20 00:00 82 02/18/20 00:00 98.2 87 20 112/63 (79) 100 02/17/20 21:00 Trach Collar 2.0 02/17/20 20:00 99.0 85 20 115/69 (84) 100 02/17/20 19:11 97 18 100 T-Piece 5.0 28 02/17/20 19:11 100 T-Piece 5.0 28 02/17/20 16:00 98.1 78 20 130/73 (92) 99 02/17/20 16:00 82 Dressing: saturated Cardiovascular: RSR Respiratory: decreased breath sounds Abdomen: soft, non-tender, present bowel sounds Extremities: no tenderness, no cyanosis Laboratory Tests Test 02/18/20 08:05 White Blood Count 8.6 K/UL (4.8-10.8) Red Blood Count 3.57 M/UL (4.70-6.10) L Hemoglobin 10.1 G/DL (14.2-18.0) L Hematocrit 30.5 % (42.0-52.0) L Mean Corpuscular Volume 85 FL (80-99) Mean Corpuscular Hemoglobin 28.3 PG (27.0-31.0) Mean Corpuscular Hemoglobin Concent 33.1 G/DL (32.0-36.0) Red Cell Distribution Width 17.3 % (11.6-14.8) H Platelet Count 386 K/UL (150-450) Mean Platelet Volume 6.8 FL (6.5-10.1) Neutrophils (%) (Auto) 66.6 % (45.0-75.0) Lymphocytes (%) (Auto) 19.3 % (20.0-45.0) L Monocytes (%) (Auto) 5.1 % (1.0-10.0) Eosinophils (%) (Auto) 7.9 % (0.0-3.0) H Basophils (%) (Auto) 1.1 % (0.0-2.0) Sodium Level 133 MMOL/L (136-145) L Potassium Level 4.6 MMOL/L (3.5-5.1) Chloride Level 102 MMOL/L (98-107) Carbon Dioxide Level 28 MMOL/L (21-32) Anion Gap 3 mmol/L (5-15) L Blood Urea Nitrogen 8 mg/dL (7-18) Creatinine 0.5 MG/DL (0.55-1.30) L Estimat Glomerular Filtration Rate > 60 mL/min (>60) Glucose Level 146 MG/DL (74-106) H Calcium Level 8.8 MG/DL (8.5-10.1) Magnesium Level 2.1 MG/DL (1.8-2.4) Total Bilirubin 0.2 MG/DL (0.2-1.0) Aspartate Amino Transf (AST/SGOT) 15 U/L (15-37) Alanine Aminotransferase (ALT/SGPT) 23 U/L (12-78) Alkaline Phosphatase 109 U/L (46-116) Total Protein 7.7 G/DL (6.4-8.2) Albumin 3.1 G/DL (3.4-5.0) L Globulin 4.6 g/dL Albumin/Globulin Ratio 0.7 (1.0-2.7) L Plan Problems: (1) Functional quadriplegia (2) UTI (urinary tract infection) (3) Malfunction of gastrostomy tube Assessment & Plan: g tube changed and now functional tolerating meds and tf bowel function bowel regimen nutritional optimization DAILY ESTIMATED NEEDS: Needs based on wound, pulmonary/ 66.7kg 25-30 kcals/kg 6359-8737 total kcals 1.25-1.8 g protein/kg 83-120 g total protein 25-30 mL/kg 3581-5243 total fluid mLs NUTRITION DIAGNOSIS: * Increased kcal/prot/micronutrients needs R/T wound healing as evidenced by pt admitted w/ stage 3 wounds @ sacrum and R gluteal fold. * Swallowing difficulty R/T dysphagia, respiratory status as evidenced by pt is on T-collar, Jtube dep. CURRENT TF:Glucerna 1.2 @70ml/hr x 20 hrs ENTERAL NUTRITION RECOMMENDATIONS: Glucerna 1.2 @ 70ml/hr x 20 hrs to provide 1400ml, 1680kcal, 86g prot, 1162ml free water * Maintain current TF: meets 100% est kcal/prot needs * HOB over 30 degrees/ water flush per MD ADDITIONAL RECOMMENDATIONS: * Maintain calibrated bedscale wt * Monitor lytes, replete as needed * Wound healing: TF @ goal meets 100% RDI Continue Vit C/ add ZnSO4 220mg QD x 10 days + Caio BID via Jtube * Monitor BGs, need for NISS (4) Fever (5) Fever (6) Fever (7) Hematuria (8) Tachycardia (9) Sepsis (10) Abnormal urogenital findings (11) Encounter for care related to feeding tube (12) Decubitus skin ulcer Assessment & Plan: Patient identified admission of multiple areas of skin break down mainly moisture related pressure injuries as well. Patient evaluated care plan initiated wounds washed dressings applied protocol initiated no deep wounds no abscess no cellulitis. Local wound care will be initiated offload pressure nutritional optimization Tacho Fagan Feb 18, 2020 14:42
[2020-02-18 15:59] VITALS: BP 123/80
--- NOTE | 2020-02-18 18:19 | Pulmonology Progress Note ---
Subjective ROS Limited/Unobtainable: No Interval Events: None new Constitutional: Reports: no symptoms HEENT: Repors: no symptoms Respiratory: Reports: no symptoms Cardiovascular: Reports: no symptoms Allergies: Coded Allergies: CEPHALEXIN (Unverified Allergy, Unknown, 12/05/13) Objective Last 24 Hour Vital Signs Date Time Temp Pulse Resp B/P (MAP) Pulse Ox O2 Delivery O2 Flow Rate FiO2 02/18/20 16:00 78 02/18/20 15:59 98.1 87 19 123/80 (94) 96 02/18/20 13:03 97 T-Piece 5.0 28 02/18/20 12:00 78 02/18/20 12:00 98.8 70 20 119/61 (80) 96 02/18/20 09:04 81 116/69 02/18/20 09:00 Trach Collar 5.0 02/18/20 08:00 86 02/18/20 08:00 98.3 81 21 116/89 (98) 100 02/18/20 07:50 89 18 97 T-Piece 5.0 28 02/18/20 07:50 97 T-Piece 5.0 28 02/18/20 04:00 99.0 90 20 118/62 (80) 100 02/18/20 04:00 62 02/18/20 01:07 98 T-Piece 5.0 28 02/18/20 00:00 82 02/18/20 00:00 98.2 87 20 112/63 (79) 100 02/17/20 21:00 Trach Collar 2.0 02/17/20 20:00 99.0 85 20 115/69 (84) 100 02/17/20 19:11 97 18 100 T-Piece 5.0 28 02/17/20 19:11 100 T-Piece 5.0 28 Intake and Output 02/17/20 02/18/20 19:00 07:00 Intake Total 70 ml Balance 70 ml Tube Feeding 70 ml General Appearance: no acute distress HEENT: status post trach Respiratory: chest wall non-tender, decreased breath sounds Cardiovascular: normal rate Laboratory Tests 02/18/20 08:05: White Blood Count 8.6, Red Blood Count 3.57L, Hemoglobin 10.1L, Hematocrit 30.5L , Mean Corpuscular Volume 85, Mean Corpuscular Hemoglobin 28.3, Mean Corpuscular Hemoglobin Concent 33.1, Red Cell Distribution Width 17.3H, Platelet Count 386, Mean Platelet Volume 6.8, Neutrophils (%) (Auto) 66.6, Lymphocytes (%) (Auto) 19.3L, Monocytes (%) (Auto) 5.1, Eosinophils (%) (Auto) 7.9H, Basophils (%) (Auto) 1.1, Sodium Level 133L, Potassium Level 4.6, Chloride Level 102, Carbon Dioxide Level 28, Anion Gap 3L, Blood Urea Nitrogen 8, Creatinine 0.5L, Estimat Glomerular Filtration Rate > 60, Glucose Level 146H, Calcium Level 8.8, Magnesium Level 2.1, Total Bilirubin 0.2, Aspartate Amino Transf (AST/SGOT) 15, Alanine Aminotransferase (ALT/SGPT) 23, Alkaline Phosphatase 109, Total Protein 7.7, Albumin 3.1L, Globulin 4.6, Albumin/Globulin Ratio 0.7L Current Medications Medications (Trade) Dose Ordered Sig/Kathryn Route PRN Reason Start Time Stop Time Status Last Admin Dose Admin Acetaminophen (Tylenol) 650 mg Q8H PRN GT Temp >100.5 02/15/20 17:00 03/16/20 16:59 02/17/20 05:31 Acetaminophen (Tylenol) 650 mg Q8H PRN GT Mild Pain (Pain Scale 1-3) 02/15/20 17:00 03/16/20 16:59 Acetaminophen (Tylenol) 650 mg Q8H PRN GT headache 02/15/20 17:00 03/16/20 16:59 Acetaminophen/ Hydrocodone Bitart ([place] 10/325) 1 tab Q4H PRN ORAL For Pain 4-10 02/15/20 05:45 02/22/20 05:44 Ascorbic Acid (Vitamin C) 500 mg DAILY GT 02/15/20 09:00 03/16/20 08:59 02/18/20 09:04 Atenolol (Tenormin) 50 mg DAILY GT 02/16/20 00:00 03/17/20 00:00 02/18/20 09:04 Docusate Sodium (Colace) 250 mg DAILY GT 02/15/20 09:00 03/16/20 08:59 02/18/20 09:05 Enoxaparin Sodium (Lovenox) 40 mg DAILY SUBQ 02/15/20 09:00 05/15/20 08:59 02/18/20 09:08 Ipratropium Lexa (Atrovent) 500 mcg Q4H PRN HHN Shortness of Breath 02/16/20 14:45 02/21/20 14:44 Lactobacillus Acidophilus (Culturelle) 1 tab DAILY GT 02/15/20 09:00 05/15/20 08:59 02/18/20 09:04 Lansoprazole (Prevacid) 30 mg DAILY GT 02/15/20 09:00 03/16/20 08:59 02/18/20 09:03 Piperacillin Sod/ Tazobactam Sod 3.375 gm/Sodium Chloride 110 ml @ 27.5 mls/hr EVERY 8 HOURS IVPB 02/15/20 14:00 02/20/20 13:59 02/18/20 14:28 Polyethylene Glycol (Miralax) 17 gm DAILY GT 02/15/20 09:00 03/16/20 08:59 02/18/20 09:03 Primidone (Mysoline) 50 mg TID GT 02/15/20 09:00 03/16/20 08:59 02/18/20 18:11 Sucralfate (Carafate) 1 gm DAILY GT 02/15/20 09:00 03/16/20 08:59 02/18/20 09:03 Vancomycin HCl (Vanco pharmacy to dose) 1 ea DAILY PRN MISC Per rx protocol 02/15/20 05:45 03/16/20 05:44 Vancomycin HCl 750 mg/Sodium Chloride 275 ml @ 183.333 mls/hr Q8H IVPB 02/16/20 12:00 02/21/20 11:59 02/18/20 12:52 Assessment/Plan Assessment/Plan 1. Urosepsis. 2. Chronic tracheostomy. 3. Multiple sclerosis. 4. GT Feeding 5. Bilateral BTK amputation DISCUSSION: Agree with current management and care. Continue Antibiotics. continue T-piece with 5 liters of oxygen and pulmonary hygiene. I will follow. Shaggy Ross MD Feb 18, 2020 18:19
[2020-02-18 20:00] VITALS: BP 114/64
[2020-02-19] VITALS: BP 107/78
--- NOTE | 2020-02-19 01:34 | Cardiology Progress Note ---
Subjective DATE OF SERVICE: Feb 18, 2020 On T-tube with low flow oxygen. No respiratory distress No fever spikes Monitor: sinus rhythm with rare ectopics. Objective Last 24 Hour Vital Signs Date Time Temp Pulse Resp B/P (MAP) Pulse Ox O2 Delivery O2 Flow Rate FiO2 02/19/20 00:00 97.2 79 18 107/78 (88) 97 02/18/20 21:00 Trach Collar 5.0 02/18/20 20:00 98.8 83 20 114/64 (81) 97 02/18/20 20:00 82 02/18/20 19:48 98 T-Piece 5.0 28 02/18/20 19:48 84 18 98 T-Piece 5.0 28 02/18/20 16:00 78 02/18/20 15:59 98.1 87 19 123/80 (94) 96 02/18/20 13:03 97 T-Piece 5.0 28 02/18/20 12:00 78 02/18/20 12:00 98.8 70 20 119/61 (80) 96 02/18/20 09:04 81 116/69 02/18/20 09:00 Trach Collar 5.0 02/18/20 08:00 86 02/18/20 08:00 98.3 81 21 116/89 (98) 100 02/18/20 07:50 89 18 97 T-Piece 5.0 28 02/18/20 07:50 97 T-Piece 5.0 28 02/18/20 04:00 99.0 90 20 118/62 (80) 100 02/18/20 04:00 62 HEENT: Thin Trach secretions RHYTHM: NSR, ST LUNGS: no wheezing, bilateral rhonchi - few CARDIAC: regular rhythm, normal S1 and S2, tachycardia ABDOMEN: normal bowel sounds, non tender, soft, no organomegaly, G-Tube intact EXTREMITIES: normal inspection, no calf tenderness, trace edema Laboratory Tests Test 02/18/20 08:05 White Blood Count 8.6 K/UL (4.8-10.8) Red Blood Count 3.57 M/UL (4.70-6.10) L Hemoglobin 10.1 G/DL (14.2-18.0) L Hematocrit 30.5 % (42.0-52.0) L Mean Corpuscular Volume 85 FL (80-99) Mean Corpuscular Hemoglobin 28.3 PG (27.0-31.0) Mean Corpuscular Hemoglobin Concent 33.1 G/DL (32.0-36.0) Red Cell Distribution Width 17.3 % (11.6-14.8) H Platelet Count 386 K/UL (150-450) Mean Platelet Volume 6.8 FL (6.5-10.1) Neutrophils (%) (Auto) 66.6 % (45.0-75.0) Lymphocytes (%) (Auto) 19.3 % (20.0-45.0) L Monocytes (%) (Auto) 5.1 % (1.0-10.0) Eosinophils (%) (Auto) 7.9 % (0.0-3.0) H Basophils (%) (Auto) 1.1 % (0.0-2.0) Sodium Level 133 MMOL/L (136-145) L Potassium Level 4.6 MMOL/L (3.5-5.1) Chloride Level 102 MMOL/L (98-107) Carbon Dioxide Level 28 MMOL/L (21-32) Anion Gap 3 mmol/L (5-15) L Blood Urea Nitrogen 8 mg/dL (7-18) Creatinine 0.5 MG/DL (0.55-1.30) L Estimat Glomerular Filtration Rate > 60 mL/min (>60) Glucose Level 146 MG/DL (74-106) H Calcium Level 8.8 MG/DL (8.5-10.1) Magnesium Level 2.1 MG/DL (1.8-2.4) Total Bilirubin 0.2 MG/DL (0.2-1.0) Aspartate Amino Transf (AST/SGOT) 15 U/L (15-37) Alanine Aminotransferase (ALT/SGPT) 23 U/L (12-78) Alkaline Phosphatase 109 U/L (46-116) Total Protein 7.7 G/DL (6.4-8.2) Albumin 3.1 G/DL (3.4-5.0) L Globulin 4.6 g/dL Albumin/Globulin Ratio 0.7 (1.0-2.7) L Assessment/Plan Assessment/Plan Sepsis due to UTI Respiratory failure Sinus tachycardia resolved Chronic encephalopathy Mult sclerosis with veg state Hypovolemia with electrolyte abn correcting Resp care Beta blockers - maintain dose as is Abx Isotonic IVF - titrate based on lab studies Avoid albuterol Recheck lytes and replace accordingly Roberto Weinberg MD Feb 19, 2020 01:34
[2020-02-19] MEDS: Vancomycin 750mg/NS 275ml IVPB SCH ×6 (03:59→20:18)
[2020-02-19 04:00] VITALS: BP 102/58
[2020-02-19] MEDS: Zosyn 3.375gm q8h **Extended infusion IVPB SCH ×6 (06:05→22:50)
--- NOTE | 2020-02-19 06:46 | Hematology/Onc Progress Note ---
Assessment/Plan Assessment/Plan Assessment and recs # Leukocytosis due to Sepsis with potential UTI (urinary tract infection) with pyuria --> urinanalysis has been reviewed, with leuk esterase --> ABX vanc/zosyn --> smear has been reviewed --> wbc 12-->9 # Anemia of chronic disease --> anemia panel noted --> hgb 10 # Malfunction of gastrostomy tube --> as per Gi # Functional quadriplegia --> stable # Dysfunctional jejunostomy tube. --> vegetative state with functional quadriplegia. # Tachycardic overnight --> ivfs --> atenolol # Hyponatremia --> as per renal # Respiratory failure s/p trach --> 2l nc --> as per pulm # Nonverbal status # Stage III decub --> per surgery # Dvt ppx lovenox sq Appreciate sap bw consultant care, dw them Subjective HEENT: Denies: no symptoms, eye pain, blurred vision, tearing, double vision, ear pain, ear discharge, nose pain, nose congestion, throat pain, throat swelling, mouth pain, mouth swelling, other Cardiovascular: Denies: no symptoms, chest pain, edema, irregular heart rate, lightheadedness, palpitations, syncope, other Respiratory: Denies: no symptoms, cough, shortness of breath, SOB with excertion, SOB at rest, sputum, wheezing, other Gastrointestinal/Abdominal: Denies: no symptoms, abdomen distended, abdominal pain, black stools, tarry stools, blood in stool, constipated, diarrhea, difficulty swallowing, nausea, poor appetite, poor fluid intake, rectal bleeding, vomiting, other Genitourinary: Denies: no symptoms, burning, discharge, frequency, flank pain, hematuria, incontinence, pain, urgency, other Endocrine: Denies: no symptoms, excessive sweating, flushing, intolerance to cold, intolerance to heat, increased hunger, increased thirst, increased urine, unexplained weight gain, unexplained weight loss, other Hematologic/Lymphatic: Denies: no symptoms, anemia, easy bleeding, easy bruising, adenopathy, other Allergies: Coded Allergies: CEPHALEXIN (Unverified Allergy, Unknown, 12/05/13) Subjective 02/15 tachycardic overnight, with bp mildly elev, reviewed cards recs 02/16 less tachycardia, meds reviewed, nonverbal, gtube functional, 2l tpiece 02/17 labs are noted, on restraints, with gtube feeds, meds noted\ 02/18 repositioning, with gtube and suprapubic functioning, intact Objective Objective Current Medications Medications (Trade) Dose Ordered Sig/Kathryn Route PRN Reason Start Time Stop Time Status Last Admin Dose Admin Acetaminophen (Tylenol) 650 mg Q8H PRN GT Temp >100.5 02/15/20 17:00 03/16/20 16:59 02/17/20 05:31 Acetaminophen (Tylenol) 650 mg Q8H PRN GT Mild Pain (Pain Scale 1-3) 02/15/20 17:00 03/16/20 16:59 Acetaminophen (Tylenol) 650 mg Q8H PRN GT headache 02/15/20 17:00 03/16/20 16:59 Acetaminophen/ Hydrocodone Bitart ([place] 10/325) 1 tab Q4H PRN ORAL For Pain 4-10 02/15/20 05:45 02/22/20 05:44 Ascorbic Acid (Vitamin C) 500 mg DAILY GT 02/15/20 09:00 03/16/20 08:59 02/18/20 09:04 Atenolol (Tenormin) 50 mg DAILY GT 02/16/20 00:00 03/17/20 00:00 02/18/20 09:04 Docusate Sodium (Colace) 250 mg DAILY GT 02/15/20 09:00 03/16/20 08:59 02/18/20 09:05 Enoxaparin Sodium (Lovenox) 40 mg DAILY SUBQ 02/15/20 09:00 05/15/20 08:59 02/18/20 09:08 Ipratropium [place] (Atrovent) 500 mcg Q4H PRN HHN Shortness of Breath 02/16/20 14:45 02/21/20 14:44 Lactobacillus Acidophilus (Culturelle) 1 tab DAILY GT 02/15/20 09:00 05/15/20 08:59 02/18/20 09:04 Lansoprazole (Prevacid) 30 mg DAILY GT 02/15/20 09:00 03/16/20 08:59 02/18/20 09:03 Piperacillin Sod/ Tazobactam Sod 3.375 gm/Sodium Chloride 110 ml @ 27.5 mls/hr EVERY 8 HOURS IVPB 02/15/20 14:00 02/20/20 13:59 02/19/20 06:05 Polyethylene Glycol (Miralax) 17 gm DAILY GT 02/15/20 09:00 03/16/20 08:59 02/18/20 09:03 Primidone (Mysoline) 50 mg TID GT 02/15/20 09:00 03/16/20 08:59 02/18/20 18:11 Sucralfate (Carafate) 1 gm DAILY GT 02/15/20 09:00 03/16/20 08:59 02/18/20 09:03 Vancomycin HCl (Vanco pharmacy to dose) 1 ea DAILY PRN MISC Per rx protocol 02/15/20 05:45 03/16/20 05:44 Vancomycin HCl 750 mg/Sodium Chloride 275 ml @ 183.333 mls/hr Q8H IVPB 02/16/20 12:00 02/21/20 11:59 02/19/20 03:59 Last 24 Hour Vital Signs Date Time Temp Pulse Resp B/P (MAP) Pulse Ox O2 Delivery O2 Flow Rate FiO2 02/19/20 01:32 99 T-Piece 5.0 28 02/19/20 00:00 97.2 79 18 107/78 (88) 97 02/19/20 00:00 88 02/18/20 21:00 Trach Collar 5.0 02/18/20 20:00 98.8 83 20 114/64 (81) 97 02/18/20 20:00 82 02/18/20 19:48 98 T-Piece 5.0 28 02/18/20 19:48 84 18 98 T-Piece 5.0 28 02/18/20 16:00 78 02/18/20 15:59 98.1 87 19 123/80 (94) 96 02/18/20 13:03 97 T-Piece 5.0 28 02/18/20 12:00 78 02/18/20 12:00 98.8 70 20 119/61 (80) 96 02/18/20 09:04 81 116/69 02/18/20 09:00 Trach Collar 5.0 02/18/20 08:00 86 02/18/20 08:00 98.3 81 21 116/89 (98) 100 02/18/20 07:50 89 18 97 T-Piece 5.0 28 02/18/20 07:50 97 T-Piece 5.0 28 02/18/20 04:00 99.0 90 20 118/62 (80) 100 02/18/20 04:00 62 02/18/20 01:07 98 T-Piece 5.0 28 02/18/20 00:00 82 02/18/20 00:00 98.2 87 20 112/63 (79) 100 02/17/20 21:00 Trach Collar 2.0 02/17/20 20:00 99.0 85 20 115/69 (84) 100 02/17/20 19:11 97 18 100 T-Piece 5.0 02/17/20 19:11 100 T-Piece 5.0 02/17/20 16:00 98.1 78 20 130/73 (92) 99 02/17/20 16:00 82 02/17/20 12:00 98.1 80 22 115/64 (81) 99 02/17/20 12:00 69 02/17/20 09:21 81 114/65 02/17/20 09:00 Trach Collar 2.0 02/17/20 08:00 99.7 81 22 114/65 (81) 99 02/17/20 08:00 87 Intake and Output 02/18/20 02/19/20 19:00 07:00 Intake Total 555 ml Output Total 1100 ml Balance -545 ml Intake Free Water 30 ml Tube Feeding 525 ml Output Urine Total 1100 ml Labs Test 02/16/20 09:45 02/17/20 11:15 02/18/20 08:05 White Blood Count 11.8 K/UL (4.8-10.8) 8.6 K/UL (4.8-10.8) Red Blood Count 3.38 M/UL (4.70-6.10) 3.57 M/UL (4.70-6.10) Hemoglobin 9.4 G/DL (14.2-18.0) 10.1 G/DL (14.2-18.0) Hematocrit 29.4 % (42.0-52.0) 30.5 % (42.0-52.0) Mean Corpuscular Volume 87 FL (80-99) 85 FL (80-99) Mean Corpuscular Hemoglobin 27.8 PG (27.0-31.0) 28.3 PG (27.0-31.0) Mean Corpuscular Hemoglobin Concent 31.8 G/DL (32.0-36.0) 33.1 G/DL (32.0-36.0) Red Cell Distribution Width 16.3 % (11.6-14.8) 17.3 % (11.6-14.8) Platelet Count 429 K/UL (150-450) 386 K/UL (150-450) Mean Platelet Volume 7.0 FL (6.5-10.1) 6.8 FL (6.5-10.1) Neutrophils (%) (Auto) 66.1 % (45.0-75.0) 66.6 % (45.0-75.0) Lymphocytes (%) (Auto) 16.0 % (20.0-45.0) 19.3 % (20.0-45.0) Monocytes (%) (Auto) 9.3 % (1.0-10.0) 5.1 % (1.0-10.0) Eosinophils (%) (Auto) 6.9 % (0.0-3.0) 7.9 % (0.0-3.0) Basophils (%) (Auto) 1.8 % (0.0-2.0) 1.1 % (0.0-2.0) Vancomycin Level Trough 6.9 ug/mL (5.0-12.0) 12.9 ug/mL (5.0-12.0) Sodium Level 133 MMOL/L (136-145) Potassium Level 4.6 MMOL/L (3.5-5.1) Chloride Level 102 MMOL/L (98-107) Carbon Dioxide Level 28 MMOL/L (21-32) Anion Gap 3 mmol/L (5-15) Blood Urea Nitrogen 8 mg/dL (7-18) Creatinine 0.5 MG/DL (0.55-1.30) Estimat Glomerular Filtration Rate > 60 mL/min (>60) Glucose Level 146 MG/DL (74-106) Calcium Level 8.8 MG/DL (8.5-10.1) Magnesium Level 2.1 MG/DL (1.8-2.4) Total Bilirubin 0.2 MG/DL (0.2-1.0) Aspartate Amino Transf (AST/SGOT) 15 U/L (15-37) Alanine Aminotransferase (ALT/SGPT) 23 U/L (12-78) Alkaline Phosphatase 109 U/L (46-116) Total Protein 7.7 G/DL (6.4-8.2) Albumin 3.1 G/DL (3.4-5.0) Globulin 4.6 g/dL Albumin/Globulin Ratio 0.7 (1.0-2.7) Height (Feet): 5 Height (Inches): 0.00 Weight (Pounds): 100 Objective Physical Exam Vitals: noted Sp02 EP Interpretation: reviewed, normal General Appearance: Chronically Ill Head: normocephalic, atraumatic eyes closed, dry mucus membranes Neck: no bony tend - rigidity, tracheotomy Respiratory: no respiratory distress, crackles, rhonchi 2L tpiece++ CV: regular rate, rhythm Gastrointestinal: no guarding, distended - slightly, other - J tube++ Genitourinary: other - suprapubic cath++ Musk: other - Multiple contractures all extremities Neurologic: other - unresponsive Skin: warm/dry Shakir Benitez MD Feb 19, 2020 06:46
[2020-02-19 08:00] VITALS: BP 115/62
[2020-02-19 08:28] LABS: BASOPHILS % (AUTO) 1.2 % (0.0-2.0); EOSINOPHILS % (AUTO) 9.4 % (0.0-3.0); HEMATOCRIT 31.1 % (42.0-52.0); HEMOGLOBIN 10.1 G/DL (14.2-18.0); MEAN CORPUSCULAR VOLUME 85 FL (80-99); NEUTROPHILS % (AUTO) 62.4 % (45.0-75.0); PLATELET COUNT 394 K/UL (150-450); RED BLOOD COUNT 3.66 M/UL (4.70-6.10); RED CELL DISTRIBUTION WIDTH 17.1 % (11.6-14.8); WHITE BLOOD COUNT 9.3 K/UL (4.8-10.8)
[2020-02-19 09:00] LABS: ALANINE AMINOTRANSFERASE 25 U/L (12-78); ALBUMIN 3.1 G/DL (3.4-5.0); ALBUMIN/GLOBULIN RATIO 0.7 (1.0-2.7); ALKALINE PHOSPHATASE 97 U/L (46-116); ANION GAP 7 mmol/L (5-15); ASPARTATE AMINO TRANSFERASE 17 U/L (15-37); BILIRUBIN,TOTAL 0.2 MG/DL (0.2-1.0); BLOOD UREA NITROGEN 6 mg/dL (7-18); CALCIUM 8.9 MG/DL (8.5-10.1); CARBON DIOXIDE 26 MMOL/L (21-32); CHLORIDE 102 MMOL/L (98-107); CHOLESTEROL 159 MG/DL (< 200); CREATININE 0.5 MG/DL (0.55-1.30); FERRITIN 12 NG/ML (8-388); GAMMA GLUTAMYL TRANSPEPTIDASE 38 U/L (5-85); HDL CHOLESTEROL 21 MG/DL (40-60); PHOSPHORUS 3.6 MG/DL (2.5-4.9); POTASSIUM 4.5 MMOL/L (3.5-5.1); SODIUM 135 MMOL/L (136-145); TRIGLYCERIDES 201 MG/DL (30-150)
--- NOTE | 2020-02-19 09:35 | General Progress Note ---
Subjective ROS Limited/Unobtainable: No Allergies: Coded Allergies: CEPHALEXIN (Unverified Allergy, Unknown, 12/05/13) Objective Last 24 Hour Vital Signs Date Time Temp Pulse Resp B/P (MAP) Pulse Ox O2 Delivery O2 Flow Rate FiO2 02/19/20 04:00 98.1 65 20 102/58 (73) 98 02/19/20 04:00 87 02/19/20 01:32 99 T-Piece 5.0 28 02/19/20 00:00 97.2 79 18 107/78 (88) 97 02/19/20 00:00 88 02/18/20 21:00 Trach Collar 5.0 02/18/20 20:00 98.8 83 20 114/64 (81) 97 02/18/20 20:00 82 02/18/20 19:48 98 T-Piece 5.0 28 02/18/20 19:48 84 18 98 T-Piece 5.0 28 02/18/20 16:00 78 02/18/20 15:59 98.1 87 19 123/80 (94) 96 02/18/20 13:03 97 T-Piece 5.0 28 02/18/20 12:00 78 02/18/20 12:00 98.8 70 20 119/61 (80) 96 Intake and Output 02/18/20 02/19/20 19:00 07:00 Intake Total 555 ml Output Total 1100 ml 1100 ml Balance -545 ml -1100 ml Intake Free Water 30 ml Tube Feeding 525 ml Output Urine Total 1100 ml 1100 ml # Bowel Movements 1 Laboratory Tests 02/19/20 08:00: White Blood Count 9.3, Red Blood Count 3.66L, Hemoglobin 10.1L, Hematocrit 31.1L , Mean Corpuscular Volume 85, Mean Corpuscular Hemoglobin 27.7, Mean Corpuscular Hemoglobin Concent 32.5, Red Cell Distribution Width 17.1H, Platelet Count 394, Mean Platelet Volume 7.4, Neutrophils (%) (Auto) 62.4, Lymphocytes (%) (Auto) 20.0, Monocytes (%) (Auto) 7.0, Eosinophils (%) (Auto) 9.4H, Basophils (%) (Auto) 1.2, Sodium Level 135L, Potassium Level 4.5, Chloride Level 102, Carbon Dioxide Level 26, Anion Gap 7, Blood Urea Nitrogen 6L, Creatinine 0.5L, Estimat Glomerular Filtration Rate > 60, Glucose Level 127H, Hemoglobin A1c 5.6, Osmolality [Pending], Uric Acid 2.2L, Calcium Level 8.9, Phosphorus Level 3.6, Magnesium Level 2.2, Ferritin 12, Total Bilirubin 0.2, Gamma Glutamyl Transpeptidase 38, Aspartate Amino Transf (AST/SGOT) 17, Alanine Aminot ransferase (ALT/SGPT) 25, Alkaline Phosphatase 97, C-Reactive Protein, Quantitative 2.5H, Pro-B-Type Natriuretic Peptide 124, Total Protein 7.7, Albumin 3.1L, Globulin 4.6, Albumin/Globulin Ratio 0.7L, Triglycerides Level 201H, Cholesterol Level 159, LDL Cholesterol 107H, HDL Cholesterol 21L, Cholesterol/HDL Ratio 7.6H, Vitamin B12 Level [Pending], Folate [Pending] Height (Feet): 5 Height (Inches): 0.00 Weight (Pounds): 100 General Appearance: no apparent distress EENT: normal ENT inspection Neck: supple Cardiovascular: normal rate Respiratory/Chest: decreased breath sounds Abdomen: normal bowel sounds, non tender, soft Extremities: non-tender Assessment/Plan Problem List: (1) Malfunction of gastrostomy tube ICD Codes: K94.23 - Gastrostomy malfunction SNOMED: 859180088 (2) UTI (urinary tract infection) ICD Codes: N39.0 - Urinary tract infection, site not specified SNOMED: 86814409 Qualifiers: Qualified Codes: T83.510A - Infection and inflammatory reaction due to cystostomy catheter, initial encounter; N39.0 - Urinary tract infection, site not specified (3) Functional quadriplegia ICD Codes: R53.2 - Functional quadriplegia SNOMED: 133978753643051 (4) Fever ICD Codes: R50.9 - Fever, unspecified SNOMED: 888781286 Assessment/Plan: GT has been changed and functioning anemia work up>>>iron def>> IV iron respiratory care will Husam Carranza MD Feb 19, 2020 09:35
[2020-02-19] MEDS: Ascorbic Acid 500mg tab GT SCH (09:43)
[2020-02-19] MEDS: Lactobacillus-GG tablet GT SCH (09:44)
[2020-02-19] MEDS: Sucralfate 1gm tab GT SCH (09:44)
[2020-02-19] MEDS: Docusate 100mg/10ml Liq GT SCH (09:45)
[2020-02-19] MEDS: Miralax 17gm pkt GT SCH (09:45)
[2020-02-19] MEDS: Enoxaparin 40mg Inj SUBQ SCH (09:47)
[2020-02-19 12:00] VITALS: BP 114/65
--- NOTE | 2020-02-19 13:00 | Surgery Progress Note ---
Surgery Progress Note Subjective Symptoms: improved, tolerating diet, passing flatus Objective Last 24 Hour Vital Signs Date Time Temp Pulse Resp B/P (MAP) Pulse Ox O2 Delivery O2 Flow Rate FiO2 02/19/20 12:00 99.1 84 20 114/65 (81) 99 02/19/20 09:44 79 115/62 02/19/20 08:00 98.6 79 20 115/62 (79) 98 02/19/20 07:45 88 02/19/20 04:00 98.1 65 20 102/58 (73) 98 02/19/20 04:00 87 02/19/20 01:32 99 T-Piece 5.0 28 02/19/20 00:00 97.2 79 18 107/78 (88) 97 02/19/20 00:00 88 02/18/20 21:00 Trach Collar 5.0 02/18/20 20:00 98.8 83 20 114/64 (81) 97 02/18/20 20:00 82 02/18/20 19:48 98 T-Piece 5.0 28 02/18/20 19:48 84 18 98 T-Piece 5.0 28 02/18/20 16:00 78 02/18/20 15:59 98.1 87 19 123/80 (94) 96 02/18/20 13:03 97 T-Piece 5.0 28 I&O Intake and Output 02/18/20 02/19/20 19:00 07:00 Intake Total 555 ml Output Total 1100 ml 1100 ml Balance -545 ml -1100 ml Intake Free Water 30 ml Tube Feeding 525 ml Output Urine Total 1100 ml 1100 ml # Bowel Movements 1 Dressing: saturated Cardiovascular: RSR Respiratory: decreased breath sounds Abdomen: non-tender, present bowel sounds, non-distended Extremities: no tenderness, no cyanosis Laboratory Tests Test 02/19/20 08:00 White Blood Count 9.3 K/UL (4.8-10.8) Red Blood Count 3.66 M/UL (4.70-6.10) L Hemoglobin 10.1 G/DL (14.2-18.0) L Hematocrit 31.1 % (42.0-52.0) L Mean Corpuscular Volume 85 FL (80-99) Mean Corpuscular Hemoglobin 27.7 PG (27.0-31.0) Mean Corpuscular Hemoglobin Concent 32.5 G/DL (32.0-36.0) Red Cell Distribution Width 17.1 % (11.6-14.8) H Platelet Count 394 K/UL (150-450) Mean Platelet Volume 7.4 FL (6.5-10.1) Neutrophils (%) (Auto) 62.4 % (45.0-75.0) Lymphocytes (%) (Auto) 20.0 % (20.0-45.0) Monocytes (%) (Auto) 7.0 % (1.0-10.0) Eosinophils (%) (Auto) 9.4 % (0.0-3.0) H Basophils (%) (Auto) 1.2 % (0.0-2.0) Sodium Level 135 MMOL/L (136-145) L Potassium Level 4.5 MMOL/L (3.5-5.1) Chloride Level 102 MMOL/L (98-107) Carbon Dioxide Level 26 MMOL/L (21-32) Anion Gap 7 mmol/L (5-15) Blood Urea Nitrogen 6 mg/dL (7-18) L Creatinine 0.5 MG/DL (0.55-1.30) L Estimat Glomerular Filtration Rate > 60 mL/min (>60) Glucose Level 127 MG/DL (74-106) H Hemoglobin A1c 5.6 % (4.3-6.0) Osmolality 285 mOsm/kg (297-317) L Uric Acid 2.2 MG/DL (2.6-7.2) L Calcium Level 8.9 MG/DL (8.5-10.1) Phosphorus Level 3.6 MG/DL (2.5-4.9) Magnesium Level 2.2 MG/DL (1.8-2.4) Ferritin 12 NG/ML (8-388) Total Bilirubin 0.2 MG/DL (0.2-1.0) Gamma Glutamyl Transpeptidase 38 U/L (5-85) Aspartate Amino Transf (AST/SGOT) 17 U/L (15-37) Alanine Aminotransferase (ALT/SGPT) 25 U/L (12-78) Alkaline Phosphatase 97 U/L (46-116) C-Reactive Protein, Quantitative 2.5 mg/dL (0.00-0.90) H Pro-B-Type Natriuretic Peptide 124 pg/mL (0-125) Total Protein 7.7 G/DL (6.4-8.2) Albumin 3.1 G/DL (3.4-5.0) L Globulin 4.6 g/dL Albumin/Globulin Ratio 0.7 (1.0-2.7) L Triglycerides Level 201 MG/DL (30-150) H Cholesterol Level 159 MG/DL (< 200) LDL Cholesterol 107 mg/dL (<100) H HDL Cholesterol 21 MG/DL (40-60) L Cholesterol/HDL Ratio 7.6 (3.3-4.4) H Vitamin B12 Level 752 PG/ML (193-986) Folate 35.0 NG/ML (8.6-58.9) Plan Problems: (1) Functional quadriplegia (2) UTI (urinary tract infection) (3) Malfunction of gastrostomy tube Assessment & Plan: g tube changed and now functional tolerating meds and tf bowel function bowel regimen nutritional optimization DAILY ESTIMATED NEEDS: Needs based on wound, pulmonary/ 66.7kg 25-30 kcals/kg total kcals 1.25-1.8 g protein/kg 83-120 g total protein 25-30 mL/kg total fluid mLs NUTRITION DIAGNOSIS: * Increased kcal/prot/micronutrients needs R/T wound healing as evidenced by pt admitted w/ stage 3 wounds @ sacrum and R gluteal fold. * Swallowing difficulty R/T dysphagia, respiratory status as evidenced by pt is on T-collar, Jtube dep. CURRENT TF:Glucerna 1.2 @70ml/hr x 20 hrs ENTERAL NUTRITION RECOMMENDATIONS: Glucerna 1.2 @ 70ml/hr x 20 hrs to provide 1400ml, 1680kcal, 86g prot, 1162ml free water * Maintain current TF: meets 100% est kcal/prot needs * HOB over 30 degrees/ water flush per MD ADDITIONAL RECOMMENDATIONS: * Maintain calibrated bedscale wt * Monitor lytes, replete as needed * Wound healing: TF @ goal meets 100% RDI Continue Vit C/ add ZnSO4 220mg QD x 10 days + Caio BID via Jtube * Monitor BGs, need for NISS (4) Fever (5) Fever (6) Fever (7) Hematuria (8) Tachycardia (9) Sepsis (10) Abnormal urogenital findings (11) Encounter for care related to feeding tube (12) Decubitus skin ulcer Assessment & Plan: Patient identified admission of multiple areas of skin breakdown mainly moisture related pressure injuries as well. Patient evaluated care plan initiated wounds washed dressings applied protocol initiated no deep wounds no abscess no cellulitis. Local wound care will be initiated offload pressure nutritional optimization Tacho Fagan Feb 19, 2020 13:00
--- NOTE | 2020-02-19 13:40 | Diagnostic Imaging Report ---
Indication: Abdominal distention, anemia, thrombocytopenia Technique: Johansen-scale and duplex images of the upper abdomen were obtained Comparison: none Findings: Gallbladder demonstrates wall adherent gallstones versus multiple polyps. Gallbladder wall is thickened, measuring 6 mm. Patient unable to report White's sign Common bile duct measures 5 mm in diameter. No intrahepatic biliary ductal dilatation. Portions of the left hepatic lobe are obscured. The visualized liver demonstrates normal echogenicity and no focal abnormality Portal vein and hepatic veins are patent. Pancreas is incompletely visualized due to overlying bowel gas, visualized portions are unremarkable. Spleen is unremarkable. Left kidney measures 9.3 cm in length. Right kidney measures 12.1 cm length. Both kidneys demonstrate normal echogenicity. There is no hydronephrosis. There is a 7.3 cm cyst coming off the interpolar region of the right kidney . Abdominal aorta is obscured by bowel gas . Impression: Limited exam, with nonvisualization of portions of the left hepatic lobe, abdominal aorta, and portions of the pancreas Wall adherent gallstones versus multiple gallbladder polyps Gallbladder wall thickening. Could be due to external causes but the possibility of acute cholecystitis should also be considered. Consider hepatobiliary nuclear scan if there is high clinical suspicion Large right renal cyst
--- NOTE | 2020-02-19 13:40 | Pulmonology Progress Note ---
Subjective ROS Limited/Unobtainable: No Interval Events: None new Constitutional: Reports: no symptoms HEENT: Repors: no symptoms Respiratory: Reports: no symptoms Cardiovascular: Reports: no symptoms Allergies: Coded Allergies: CEPHALEXIN (Unverified Allergy, Unknown, 12/05/13) Objective Last 24 Hour Vital Signs Date Time Temp Pulse Resp B/P (MAP) Pulse Ox O2 Delivery O2 Flow Rate FiO2 02/19/20 12:00 99.1 84 20 114/65 (81) 99 02/19/20 11:53 75 02/19/20 09:44 79 115/62 02/19/20 08:00 98.6 79 20 115/62 (79) 98 02/19/20 07:45 88 02/19/20 04:00 98.1 65 20 102/58 (73) 98 02/19/20 04:00 87 02/19/20 01:32 99 T-Piece 5.0 28 02/19/20 00:00 97.2 79 18 107/78 (88) 97 02/19/20 00:00 88 02/18/20 21:00 Trach Collar 5.0 02/18/20 20:00 98.8 83 20 114/64 (81) 97 02/18/20 20:00 82 02/18/20 19:48 98 T-Piece 5.0 28 02/18/20 19:48 84 18 98 T-Piece 5.0 28 02/18/20 16:00 78 02/18/20 15:59 98.1 87 19 123/80 (94) 96 Intake and Output 02/18/20 02/19/20 19:00 07:00 Intake Total 555 ml Output Total 1100 ml 1100 ml Balance -545 ml -1100 ml Intake Free Water 30 ml Tube Feeding 525 ml Output Urine Total 1100 ml 1100 ml # Bowel Movements 1 General Appearance: no acute distress HEENT: status post trach Respiratory: chest wall non-tender, decreased breath sounds Cardiovascular: normal rate Laboratory Tests 02/19/20 08:00: White Blood Count 9.3, Red Blood Count 3.66L, Hemoglobin 10.1L, Hematocrit 31.1L , Mean Corpuscular Volume 85, Mean Corpuscular Hemoglobin 27.7, Mean Corpuscular Hemoglobin Concent 32.5, Red Cell Distribution Width 17.1H, Platelet Count 394, Mean Platelet Volume 7.4, Neutrophils (%) (Auto) 62.4, Lymphocytes (%) (Auto) 20.0, Monocytes (%) (Auto) 7.0, Eosinophils (%) (Auto) 9.4H, Basophils (%) (Auto) 1.2, Sodium Level 135L, Potassium Level 4.5, Chloride Level 102, Carbon Dioxide Level 26, Anion Gap 7, Blood Urea Nitrogen 6L, Creatinine 0.5L, Estimat Glomerular Filtration Rate > 60, Glucose Level 127H, Hemoglobin A1c 5.6, Osmolality 285L, Uric Acid 2.2L, Calcium Level 8.9, Phosphorus Level 3.6, Magnesium Level 2.2, Ferritin 12, Total Bilirubin 0.2, Gamma Glutamyl Transpeptidase 38, Aspartate Amino Transf (AST/SGOT) 17, Alanine Aminotransferase (ALT/SGPT) 25, Alkaline Phosphatase 97, C-Reactive Protein, Quantitative 2.5H, Pro-B-Type Natriuretic Peptide 124, Total Protein 7.7, Albumin 3.1L, Globulin 4.6, Albumin/Globulin Ratio 0.7L, Triglycerides Level 201H, Cholesterol Level 159, LDL Cholesterol 107H, HDL Cholesterol 21L, Cholesterol/HDL Ratio 7.6H, Vitamin B12 Level 752, Folate 35.0 Current Medications Medications (Trade) Dose Ordered Sig/Kathryn Route PRN Reason Start Time Stop Time Status Last Admin Dose Admin Acetaminophen (Tylenol) 650 mg Q8H PRN GT Temp >100.5 02/15/20 17:00 03/16/20 16:59 02/17/20 05:31 Acetaminophen (Tylenol) 650 mg Q8H PRN GT Mild Pain (Pain Scale 1-3) 02/15/20 17:00 03/16/20 16:59 Acetaminophen (Tylenol) 650 mg Q8H PRN GT headache 02/15/20 17:00 03/16/20 16:59 Acetaminophen/ Hydrocodone Bitart ([place] 10/325) 1 tab Q4H PRN ORAL For Pain 4-10 02/15/20 05:45 02/22/20 05:44 Ascorbic Acid (Vitamin C) 500 mg DAILY GT 02/15/20 09:00 03/16/20 08:59 02/19/20 09:43 Atenolol (Tenormin) 50 mg DAILY GT 02/16/20 00:00 03/17/20 00:00 02/19/20 09:44 Docusate Sodium (Colace) 250 mg DAILY GT 02/15/20 09:00 03/16/20 08:59 02/19/20 09:45 Enoxaparin Sodium (Lovenox) 40 mg DAILY SUBQ 02/15/20 09:00 05/15/20 08:59 02/19/20 09:47 Ipratropium [place] (Atrovent) 500 mcg Q4H PRN HHN Shortness of Breath 02/16/20 14:45 02/21/20 14:44 Iron Sucrose 100 mg/Sodium Chloride 60 ml @ 240 mls/hr BEDTIME IVPB 02/19/20 21:00 02/23/20 21:14 Lactobacillus Acidophilus (Culturelle) 1 tab DAILY GT 02/15/20 09:00 05/15/20 08:59 02/19/20 09:44 Lansoprazole (Prevacid) 30 mg DAILY GT 02/15/20 09:00 03/16/20 08:59 02/19/20 09:44 Piperacillin Sod/ Tazobactam Sod 3.375 gm/Sodium Chloride 110 ml @ 27.5 mls/hr EVERY 8 HOURS IVPB 02/15/20 14:00 02/20/20 13:59 02/19/20 06:05 Polyethylene Glycol (Miralax) 17 gm DAILY GT 02/15/20 09:00 03/16/20 08:59 02/19/20 09:45 Primidone (Mysoline) 50 mg TID GT 02/15/20 09:00 03/16/20 08:59 02/19/20 12:37 Sucralfate (Carafate) 1 gm DAILY GT 02/15/20 09:00 03/16/20 08:59 02/19/20 09:44 Vancomycin HCl (Vanco pharmacy to dose) 1 ea DAILY PRN MISC Per rx protocol 02/15/20 05:45 03/16/20 05:44 Vancomycin HCl 750 mg/Sodium Chloride 275 ml @ 183.333 mls/hr Q8H IVPB 02/16/20 12:00 02/21/20 11:59 02/19/20 12:37 Assessment/Plan Assessment/Plan 1. Urosepsis. 2. Chronic tracheostomy. 3. Multiple sclerosis. 4. GT Feeding 5. Bilateral BTK amputation DISCUSSION: Agree with current management and care. Continue Antibiotics. continue T-piece with 5 liters of oxygen and pulmonary hygiene. I will follow. Shaggy Ross MD Feb 19, 2020 13:40
[2020-02-19 15:58] VITALS: BP 118/64
--- NOTE | 2020-02-19 17:09 | Nephrology Progress Note ---
Assessment/Plan Problem List: (1) Hyponatremia (2) Electrolyte imbalance (3) Functional quadriplegia (4) UTI (urinary tract infection) (5) Decubitus skin ulcer Assessment Moderate hyponatremia, etiology to be identified other conditions: Chronic jejunostomy tube Chronic tracheostomy Malfunction of gastrostomy tube Functional quadriplegia Multiple sclerosis UTI, suprapubic catheter Chronic vegetative state Plan Serum sodium up to 135 Still pending for urine spot sodium and urine osmolality results Serum uric acid, TSH, lipid panel and osmolality, noted Stop saline infusion for now Further recommendations based on above results Subjective ROS Limited/Unobtainable: No Constitutional: Reports: malaise, weakness Objective Objective Last 24 Hour Vital Signs Date Time Temp Pulse Resp B/P (MAP) Pulse Ox O2 Delivery O2 Flow Rate FiO2 02/19/20 15:58 100.2 78 20 118/64 (82) 99 02/19/20 13:30 98 T-Piece 5.0 28 02/19/20 12:00 99.1 84 20 114/65 (81) 99 02/19/20 11:53 75 02/19/20 09:44 79 115/62 02/19/20 09:00 Trach Collar 5.0 02/19/20 08:00 98.6 79 20 115/62 (79) 98 02/19/20 07:45 88 02/19/20 07:30 90 18 98 T-Piece 5.0 28 02/19/20 07:30 98 T-Piece 5.0 28 02/19/20 04:00 98.1 65 20 102/58 (73) 98 02/19/20 04:00 87 02/19/20 01:32 99 T-Piece 5.0 28 02/19/20 00:00 97.2 79 18 107/78 (88) 97 02/19/20 00:00 88 02/18/20 21:00 Trach Collar 5.0 02/18/20 20:00 98.8 83 20 114/64 (81) 97 02/18/20 20:00 82 02/18/20 19:48 98 T-Piece 5.0 28 02/18/20 19:48 84 18 98 T-Piece 5.0 28 Intake and Output 02/18/20 02/19/20 19:00 07:00 Intake Total 555 ml Output Total 1100 ml 1100 ml Balance -545 ml -1100 ml Intake Free Water 30 ml Tube Feeding 525 ml Output Urine Total 1100 ml 1100 ml # Bowel Movements 1 Laboratory Tests 02/19/20 08:00: White Blood Count 9.3, Red Blood Count 3.66L, Hemoglobin 10.1L, Hematocrit 31.1L , Mean Corpuscular Volume 85, Mean Corpuscular Hemoglobin 27.7, Mean Corpuscular Hemoglobin Concent 32.5, Red Cell Distribution Width 17.1H, Platelet Count 394, Mean Platelet Volume 7.4, Neutrophils (%) (Auto) 62.4, Lymphocytes (%) (Auto) 20.0, Monocytes (%) (Auto) 7.0, Eosinophils (%) (Auto) 9.4H, Basophils (%) (Auto) 1.2, Sodium Level 135L, Potassium Level 4.5, Chloride Level 102, Carbon Dioxide Level 26, Anion Gap 7, Blood Urea Nitrogen 6L, Creatinine 0.5L, Estimat Glomerular Filtration Rate > 60, Glucose Level 127H, Hemoglobin A1c 5.6, Osmolality 285L, Uric Acid 2.2L, Calcium Level 8.9, Phosphorus Level 3.6, Magnesium Level 2.2, Ferritin 12, Total Bilirubin 0.2, Gamma Glutamyl Tr anspeptidase 38, Aspartate Amino Transf (AST/SGOT) 17, Alanine Aminotransferase (ALT/SGPT) 25, Alkaline Phosphatase 97, C-Reactive Protein, Quantitative 2.5H, Pro-B-Type Natriuretic Peptide 124, Total Protein 7.7, Albumin 3.1L, Globulin 4.6, Albumin/Globulin Ratio 0.7L, Triglycerides Level 201H, Cholesterol Level 159, LDL Cholesterol 107H, HDL Cholesterol 21L, Cholesterol/HDL Ratio 7.6H, Vitamin B12 Level 752, Folate 35.0 Height (Feet): 5 Height (Inches): 0.00 Weight (Pounds): 100 General Appearance: no apparent distress, lethargic EENT: other - T-piece to oxygen Cardiovascular: normal rate Respiratory/Chest: decreased breath sounds Abdomen: distended Chris Miller MD Feb 19, 2020 17:09
[2020-02-19 20:00] VITALS: BP 118/63
--- NOTE | 2020-02-19 20:53 | General Progress Note ---
Subjective Constitutional: Reports: no symptoms HEENT: Reports: no symptoms Cardiovascular: Reports: no symptoms Respiratory: Reports: shortness of breath Gastrointestinal/Abdominal: Reports: no symptoms Genitourinary: Reports: no symptoms Neurologic/Psychiatric: Reports: no symptoms Endocrine: Reports: no symptoms Allergies: Coded Allergies: CEPHALEXIN (Unverified Allergy, Unknown, 12/05/13) Objective Last 24 Hour Vital Signs Date Time Temp Pulse Resp B/P (MAP) Pulse Ox O2 Delivery O2 Flow Rate FiO2 02/19/20 19:00 91 20 97 T-Piece 5.0 28 02/19/20 19:00 97 T-Piece 5.0 28 02/19/20 15:58 100.2 78 20 118/64 (82) 99 02/19/20 15:24 86 02/19/20 13:30 98 T-Piece 5.0 28 02/19/20 12:00 99.1 84 20 114/65 (81) 99 02/19/20 11:53 75 02/19/20 09:44 79 115/62 02/19/20 09:00 Trach Collar 5.0 02/19/20 08:00 98.6 79 20 115/62 (79) 98 02/19/20 07:45 88 02/19/20 07:30 90 18 98 T-Piece 5.0 02/19/20 07:30 98 T-Piece 5.0 28 02/19/20 04:00 98.1 65 20 102/58 (73) 98 02/19/20 04:00 87 02/19/20 01:32 99 T-Piece 5.0 02/19/20 00:00 97.2 79 18 107/78 (88) 97 02/19/20 00:00 88 02/18/20 21:00 Trach Collar 5.0 Intake and Output 02/18/20 02/19/20 19:00 07:00 Intake Total 555 ml 70 ml Output Total 1100 ml 1100 ml Balance -545 ml -1030 ml Intake Free Water 30 ml Tube Feeding 525 ml 70 ml Output Urine Total 1100 ml 1100 ml # Bowel Movements 1 Laboratory Tests 02/19/20 08:00: White Blood Count 9.3, Red Blood Count 3.66L, Hemoglobin 10.1L, Hematocrit 31.1L , Mean Corpuscular Volume 85, Mean Corpuscular Hemoglobin 27.7, Mean Corpuscular Hemoglobin Concent 32.5, Red Cell Distribution Width 17.1H, Platelet Count 394, Mean Platelet Volume 7.4, Neutrophils (%) (Auto) 62.4, Lymphocytes (%) (Auto) 20.0, Monocytes (%) (Auto) 7.0, Eosinophils (%) (Auto) 9.4H, Basophils (%) (Auto) 1.2, Sodium Level 135L, Potassium Level 4.5, Chloride Level 102, Carbon Dioxide Level 26, Anion Gap 7, Blood Urea Nitrogen 6L, Creatinine 0.5L, Estimat Glomerular Filtration Rate > 60, Glucose Level 127H, Hemoglobin A1c 5.6, Osmolality 285L, Uric Acid 2.2L, Calcium Level 8.9, Phosphorus Level 3.6, Magnesium Level 2.2, Ferritin 12, Total Bilirubin 0.2, Gamma Glutamyl Transpeptidase 38, Aspartate Amino Transf (AST/SGOT) 17, Alanine Aminotransferase (ALT/SGPT) 25, Alkaline Phosphatase 97, C-Reactive Protein, Quantitative 2.5H, Pro-B-Type Natriuretic Peptide 124, Total Protein 7.7, Albumin 3.1L, Globulin 4.6, Albumin/Globulin Ratio 0.7L, Triglycerides Level 201H, Cholesterol Level 159, LDL Cholesterol 107H, HDL Cholesterol 21L, Cholesterol/HDL Ratio 7.6H, Vitamin B12 Level 752, Folate 35.0 Height (Feet): 5 Height (Inches): 0.00 Weight (Pounds): 100 General Appearance: WD/WN, no apparent distress, alert EENT: normal ENT inspection Neck: non-tender, supple Cardiovascular: normal rate, regular rhythm, no gallop/murmur, no JVD Respiratory/Chest: normal breath sounds, no respiratory distress, no accessory muscle use, rhonchi - left Abdomen: normal bowel sounds, non tender, soft, no organomegaly, no mass Extremities: non-tender Neurologic: alert, oriented x 3, responsive Assessment/Plan Status Narrative Patient chart review laboratory results and imaging studies reviewed as well in consultation report with studies in detail patient himself is awake alert febrile complain of mild shortness of breath he was scheduled to be discharged today but had fever to 100.2 and discharged was canceled at the time of this assessment patient is afebrile chest x-ray CBC BMP were ordered for a.m. If patient condition remains stable he will be discharged in a.Donna Francisco MD, MD Feb 19, 2020 20:53
[2020-02-19] MEDS ORDERED: Iron Sucrose 100 MG in NS 55 ML IVPB SCH (21:00)
[2020-02-20] VITALS: BP 118/65
--- NOTE | 2020-02-20 00:51 | Cardiology Progress Note ---
Subjective DATE OF SERVICE: Feb 19, 2020 On T-tube with low flow oxygen. No respiratory distress Febrile to 100.3 Monitor: sinus rhythm with rare ectopics. Objective Last 24 Hour Vital Signs Date Time Temp Pulse Resp B/P (MAP) Pulse Ox O2 Delivery O2 Flow Rate FiO2 02/20/20 00:07 98 T-Piece 5.0 28 02/20/20 00:00 98.2 91 24 118/65 (82) 97 02/19/20 21:00 Trach Collar 5.0 02/19/20 20:00 100.2 88 24 118/63 (81) 99 02/19/20 19:00 91 20 97 T-Piece 5.0 28 02/19/20 19:00 97 T-Piece 5.0 28 02/19/20 15:58 100.2 78 20 118/64 (82) 99 02/19/20 15:24 86 02/19/20 13:30 98 T-Piece 5.0 28 02/19/20 12:00 99.1 84 20 114/65 (81) 99 02/19/20 11:53 75 02/19/20 09:44 79 115/62 02/19/20 09:00 Trach Collar 5.0 02/19/20 08:00 98.6 79 20 115/62 (79) 98 02/19/20 07:45 88 02/19/20 07:30 90 18 98 T-Piece 5.0 28 02/19/20 07:30 98 T-Piece 5.0 28 02/19/20 04:00 98.1 65 20 102/58 (73) 98 02/19/20 04:00 87 02/19/20 01:32 99 T-Piece 5.0 28 HEENT: Thin Trach secretions RHYTHM: NSR, ST LUNGS: no wheezing, bilateral rhonchi - few CARDIAC: regular rhythm, normal S1 and S2, tachycardia ABDOMEN: normal bowel sounds, non tender, soft, no organomegaly, G-Tube intact EXTREMITIES: normal inspection, no calf tenderness, trace edema Laboratory Tests Test 02/19/20 08:00 02/20/20 00:15 White Blood Count 9.3 K/UL (4.8-10.8) Red Blood Count 3.66 M/UL (4.70-6.10) L Hemoglobin 10.1 G/DL (14.2-18.0) L Hematocrit 31.1 % (42.0-52.0) L Mean Corpuscular Volume 85 FL (80-99) Mean Corpuscular Hemoglobin 27.7 PG (27.0-31.0) Mean Corpuscular Hemoglobin Concent 32.5 G/DL (32.0-36.0) Red Cell Distribution Width 17.1 % (11.6-14.8) H Platelet Count 394 K/UL (150-450) Mean Platelet Volume 7.4 FL (6.5-10.1) Neutrophils (%) (Auto) 62.4 % (45.0-75.0) Lymphocytes (%) (Auto) 20.0 % (20.0-45.0) Monocytes (%) (Auto) 7.0 % (1.0-10.0) Eosinophils (%) (Auto) 9.4 % (0.0-3.0) H Basophils (%) (Auto) 1.2 % (0.0-2.0) Sodium Level 135 MMOL/L (136-145) L Potassium Level 4.5 MMOL/L (3.5-5.1) Chloride Level 102 MMOL/L (98-107) Carbon Dioxide Level 26 MMOL/L (21-32) Anion Gap 7 mmol/L (5-15) Blood Urea Nitrogen 6 mg/dL (7-18) L Creatinine 0.5 MG/DL (0.55-1.30) L Estimat Glomerular Filtration Rate > 60 mL/min (>60) Glucose Level 127 MG/DL (74-106) H Hemoglobin A1c 5.6 % (4.3-6.0) Osmolality 285 mOsm/kg (297-317) L Uric Acid 2.2 MG/DL (2.6-7.2) L Calcium Level 8.9 MG/DL (8.5-10.1) Phosphorus Level 3.6 MG/DL (2.5-4.9) Magnesium Level 2.2 MG/DL (1.8-2.4) Ferritin 12 NG/ML (8-388) Total Bilirubin 0.2 MG/DL (0.2-1.0) Gamma Glutamyl Transpeptidase 38 U/L (5-85) Aspartate Amino Transf (AST/SGOT) 17 U/L (15-37) Alanine Aminotransferase (ALT/SGPT) 25 U/L (12-78) Alkaline Phosphatase 97 U/L (46-116) C-Reactive Protein, Quantitative 2.5 mg/dL (0.00-0.90) H Pro-B-Type Natriuretic Peptide 124 pg/mL (0-125) Total Protein 7.7 G/DL (6.4-8.2) Albumin 3.1 G/DL (3.4-5.0) L Globulin 4.6 g/dL Albumin/Globulin Ratio 0.7 (1.0-2.7) L Triglycerides Level 201 MG/DL (30-150) H Cholesterol Level 159 MG/DL (< 200) LDL Cholesterol 107 mg/dL (<100) H HDL Cholesterol 21 MG/DL (40-60) L Cholesterol/HDL Ratio 7.6 (3.3-4.4) H Vitamin B12 Level 752 PG/ML (193-986) Folate 35.0 NG/ML (8.6-58.9) Urine Osmolality Pending Urine Random Sodium Pending Assessment/Plan Assessment/Plan Sepsis due to UTI, now with new fever. Respiratory failure Sinus tachycardia resolved Chronic encephalopathy Mult sclerosis with veg state Hypovolemia with electrolyte abn correcting Fever work up per PMD Resp care Beta blockers - maintain dose as is Abx OFF IVF now Avoid albuterol Recheck lytes and replace accordingly Roberto Weinberg MD Feb 20, 2020 00:51
[2020-02-20] MEDS: Vancomycin 750mg/NS 275ml IVPB SCH ×6 (03:28→11:16)
[2020-02-20 04:00] VITALS: BP 93/61
[2020-02-20] MEDS: Zosyn 3.375gm q8h **Extended infusion IVPB SCH ×4 (06:10→14:07)
--- NOTE | 2020-02-20 07:02 | Hematology/Onc Progress Note ---
Assessment/Plan Assessment/Plan Assessment and recs # Leukocytosis due to Sepsis with potential UTI (urinary tract infection) with pyuria --> urinanalysis has been reviewed, with leuk esterase --> ABX vanc/zosyn --> smear has been reviewed --> wbc 12-->9 # Anemia of chronic disease --> anemia panel noted --> hgb 10 # Malfunction of gastrostomy tube --> as per Gi # Functional quadriplegia --> stable # Dysfunctional jejunostomy tube. --> vegetative state with functional quadriplegia. # Tachycardic overnight --> ivfs --> atenolol # Hyponatremia --> as per renal # Respiratory failure s/p trach --> 2l nc --> as per pulm # Nonverbal status # Stage III decub --> per surgery # Dvt ppx lovenox sq Appreciate quality improvement consultant care, dw them Subjective HEENT: Denies: no symptoms, eye pain, blurred vision, tearing, double vision, ear pain, ear discharge, nose pain, nose congestion, throat pain, throat swelling, mouth pain, mouth swelling, other Cardiovascular: Denies: no symptoms, chest pain, edema, irregular heart rate, lightheadedness, palpitations, syncope, other Respiratory: Denies: no symptoms, cough, shortness of breath, SOB with excertion, SOB at rest, sputum, wheezing, other Gastrointestinal/Abdominal: Denies: no symptoms, abdomen distended, abdominal pain, black stools, tarry stools, blood in stool, constipated, diarrhea, difficulty swallowing, nausea, poor appetite, poor fluid intake, rectal bleeding, vomiting, other Genitourinary: Denies: no symptoms, burning, discharge, frequency, flank pain, hematuria, incontinence, pain, urgency, other Neurologic/Psychiatric: Denies: no symptoms, anxiety, depressed, emotional problems, headache, numbness, paresthesia, pre-existing deficit, seizure, tingling, tremors, weakness, other Endocrine: Denies: no symptoms, excessive sweating, flushing, intolerance to cold, intolerance to heat, increased hunger, increased thirst, increased urine, unexplained weight gain, unexplained weight loss, other Allergies: Coded Allergies: CEPHALEXIN (Unverified Allergy, Unknown, 12/05/13) Subjective 02/15 tachycardic overnight, with bp mildly elev, reviewed cards recs 02/16 less tachycardia, meds reviewed, nonverbal, gtube functional, 2l tpiece 02/17 labs are noted, on restraints, with gtube feeds, meds noted\ 02/18 repositioning, with gtube and suprapubic functioning, intact 02/[address], gt, labs noted, pending today Objective Objective Current Medications Medications (Trade) Dose Ordered Sig/Kathryn Route PRN Reason Start Time Stop Time Status Last Admin Dose Admin Acetaminophen (Tylenol) 650 mg Q8H PRN GT Temp >100.5 02/15/20 17:00 03/16/20 16:59 02/17/20 05:31 Acetaminophen (Tylenol) 650 mg Q8H PRN GT Mild Pain (Pain Scale 1-3) 02/15/20 17:00 03/16/20 16:59 Acetaminophen (Tylenol) 650 mg Q8H PRN GT headache 02/15/20 17:00 03/16/20 16:59 Acetaminophen/ Hydrocodone Bitart ([place] 10/325) 1 tab Q4H PRN ORAL For Pain 4-10 02/15/20 05:45 02/22/20 05:44 Ascorbic Acid (Vitamin C) 500 mg DAILY GT 02/15/20 09:00 03/16/20 08:59 02/19/20 09:43 Atenolol (Tenormin) 50 mg DAILY GT 02/16/20 00:00 03/17/20 00:00 02/19/20 09:44 Docusate Sodium (Colace) 250 mg DAILY GT 02/15/20 09:00 03/16/20 08:59 02/19/20 09:45 Enoxaparin Sodium (Lovenox) 40 mg DAILY SUBQ 02/15/20 09:00 05/15/20 08:59 02/19/20 09:47 Ipratropium [place] (Atrovent) 500 mcg Q4H PRN HHN Shortness of Breath 02/16/20 14:45 02/21/20 14:44 Iron Sucrose 100 mg/Sodium Chloride 60 ml @ 240 mls/hr BEDTIME IVPB 02/19/20 21:00 02/23/20 21:14 02/19/20 21:00 Lactobacillus Acidophilus (Culturelle) 1 tab DAILY GT 02/15/20 09:00 05/15/20 08:59 02/19/20 09:44 Lansoprazole (Prevacid) 30 mg DAILY GT 02/15/20 09:00 03/16/20 08:59 02/19/20 09:44 Piperacillin Sod/ Tazobactam Sod 3.375 gm/Sodium Chloride 110 ml @ 27.5 mls/hr EVERY 8 HOURS IVPB 02/15/20 14:00 02/20/20 13:59 02/20/20 06:10 Polyethylene Glycol (Miralax) 17 gm DAILY GT 02/15/20 09:00 03/16/20 08:59 02/19/20 09:45 Primidone (Mysoline) 50 mg TID GT 02/15/20 09:00 03/16/20 08:59 02/19/20 17:57 Sucralfate (Carafate) 1 gm DAILY GT 02/15/20 09:00 03/16/20 08:59 02/19/20 09:44 Vancomycin HCl (Vanco pharmacy to dose) 1 ea DAILY PRN MISC Per rx protocol 02/15/20 05:45 03/16/20 05:44 Vancomycin HCl 750 mg/Sodium Chloride 275 ml @ 183.333 mls/hr Q8H IVPB 02/20/20 04:00 02/25/20 03:59 02/20/20 04:26 Last 24 Hour Vital Signs Date Time Temp Pulse Resp B/P (MAP) Pulse Ox O2 Delivery O2 Flow Rate FiO2 02/20/20 04:00 98.8 88 22 93/61 (72) 97 02/20/20 00:07 98 T-Piece 5.0 02/20/20 00:00 98.2 91 24 118/65 (82) 97 02/19/20 21:00 Trach Collar 5.0 02/19/20 20:00 100.2 88 24 118/63 (81) 99 02/19/20 19:00 91 20 97 T-Piece 5.0 28 02/19/20 19:00 97 T-Piece 5.0 28 02/19/20 15:58 100.2 78 20 118/64 (82) 99 02/19/20 15:24 86 02/19/20 13:30 98 T-Piece 5.0 28 02/19/20 12:00 99.1 84 20 114/65 (81) 99 02/19/20 11:53 75 02/19/20 09:44 79 115/62 02/19/20 09:00 Trach Collar 5.0 02/19/20 08:00 98.6 79 20 115/62 (79) 98 02/19/20 07:45 88 02/19/20 07:30 90 18 98 T-Piece 5.0 28 02/19/20 07:30 98 T-Piece 5.0 28 02/19/20 04:00 98.1 65 20 102/58 (73) 98 02/19/20 04:00 87 02/19/20 01:32 99 T-Piece 5.0 28 02/19/20 00:00 97.2 79 18 107/78 (88) 97 02/19/20 00:00 88 02/18/20 21:00 Trach Collar 5.0 02/18/20 20:00 98.8 83 20 114/64 (81) 97 02/18/20 20:00 82 02/18/20 19:48 98 T-Piece 5.0 28 02/18/20 19:48 84 18 98 T-Piece 5.0 28 02/18/20 16:00 78 02/18/20 15:59 98.1 87 19 123/80 (94) 96 02/18/20 13:03 97 T-Piece 5.0 28 02/18/20 12:00 78 02/18/20 12:00 98.8 70 20 119/61 (80) 96 02/18/20 09:04 81 116/69 02/18/20 09:00 Trach Collar 5.0 02/18/20 08:00 86 02/18/20 08:00 98.3 81 21 116/89 (98) 100 02/18/20 07:50 89 18 97 T-Piece 5.0 28 02/18/20 07:50 97 T-Piece 5.0 28 Intake and Output 02/19/20 02/20/20 19:00 07:00 Intake Total 1160.000 ml Output Total 800 ml Balance 360.000 ml Intake Free Water 60 ml IV Total 330.000 ml Tube Feeding 770 ml Output Urine Total 800 ml # Bowel Movements 1 Labs Test 02/17/20 11:15 02/18/20 08:05 02/19/20 08:00 02/20/20 00:15 Vancomycin Level Trough 12.9 ug/mL (5.0-12.0) White Blood Count 8.6 K/UL (4.8-10.8) 9.3 K/UL (4.8-10.8) Red Blood Count 3.57 M/UL (4.70-6.10) 3.66 M/UL (4.70-6.10) Hemoglobin 10.1 G/DL (14.2-18.0) 10.1 G/DL (14.2-18.0) Hematocrit 30.5 % (42.0-52.0) 31.1 % (42.0-52.0) Mean Corpuscular Volume 85 FL (80-99) 85 FL (80-99) Mean Corpuscular Hemoglobin 28.3 PG (27.0-31.0) 27.7 PG (27.0-31.0) Mean Corpuscular Hemoglobin Concent 33.1 G/DL (32.0-36.0) 32.5 G/DL (32.0-36.0) Red Cell Distribution Width 17.3 % (11.6-14.8) 17.1 % (11.6-14.8) Platelet Count 386 K/UL (150-450) 394 K/UL (150-450) Mean Platelet Volume 6.8 FL (6.5-10.1) 7.4 FL (6.5-10.1) Neutrophils (%) (Auto) 66.6 % (45.0-75.0) 62.4 % (45.0-75.0) Lymphocytes (%) (Auto) 19.3 % (20.0-45.0) 20.0 % (20.0-45.0) Monocytes (%) (Auto) 5.1 % (1.0-10.0) 7.0 % (1.0-10.0) Eosinophils (%) (Auto) 7.9 % (0.0-3.0) 9.4 % (0.0-3.0) Basophils (%) (Auto) 1.1 % (0.0-2.0) 1.2 % (0.0-2.0) Sodium Level 133 MMOL/L (136-145) 135 MMOL/L (136-145) Potassium Level 4.6 MMOL/L (3.5-5.1) 4.5 MMOL/L (3.5-5.1) Chloride Level 102 MMOL/L (98-107) 102 MMOL/L (98-107) Carbon Dioxide Level 28 MMOL/L (21-32) 26 MMOL/L (21-32) Anion Gap 3 mmol/L (5-15) 7 mmol/L (5-15) Blood Urea Nitrogen 8 mg/dL (7-18) 6 mg/dL (7-18) Creatinine 0.5 MG/DL (0.55-1.30) 0.5 MG/DL (0.55-1.30) Estimat Glomerular Filtration Rate > 60 mL/min (>60) > 60 mL/min (>60) Glucose Level 146 MG/DL (74-106) 127 MG/DL (74-106) Calcium Level 8.8 MG/DL (8.5-10.1) 8.9 MG/DL (8.5-10.1) Magnesium Level 2.1 MG/DL (1.8-2.4) 2.2 MG/DL (1.8-2.4) Total Bilirubin 0.2 MG/DL (0.2-1.0) 0.2 MG/DL (0.2-1.0) Aspartate Amino Transf (AST/SGOT) 15 U/L (15-37) 17 U/L (15-37) Alanine Aminotransferase (ALT/SGPT) 23 U/L (12-78) 25 U/L (12-78) Alkaline Phosphatase 109 U/L (46-116) 97 U/L (46-116) Total Protein 7.7 G/DL (6.4-8.2) 7.7 G/DL (6.4-8.2) Albumin 3.1 G/DL (3.4-5.0) 3.1 G/DL (3.4-5.0) Globulin 4.6 g/dL 4.6 g/dL Albumin/Globulin Ratio 0.7 (1.0-2.7) 0.7 (1.0-2.7) Hemoglobin A1c 5.6 % (4.3-6.0) Osmolality 285 mOsm/kg (297-317) Uric Acid 2.2 MG/DL (2.6-7.2) Phosphorus Level 3.6 MG/DL (2.5-4.9) Ferritin 12 NG/ML (8-388) Gamma Glutamyl Transpeptidase 38 U/L (5-85) C-Reactive Protein, Quantitative 2.5 mg/dL (0.00-0.90) Pro-B-Type Natriuretic Peptide 124 pg/mL (0-125) Triglycerides Level 201 MG/DL (30-150) Cholesterol Level 159 MG/DL (< 200) LDL Cholesterol 107 mg/dL (<100) HDL Cholesterol 21 MG/DL (40-60) Cholesterol/HDL Ratio 7.6 (3.3-4.4) Vitamin B12 Level 752 PG/ML (193-986) Folate 35.0 NG/ML (8.6-58.9) Urine Osmolality 428 mOsm/kg (429-449) Urine Random Sodium 146 mmol/L (20-110) Height (Feet): 5 Height (Inches): 0.00 Weight (Pounds): 100 Objective Physical Exam Vitals: noted [id number] EP Interpretation: reviewed, normal General Appearance: Chronically Ill Head: normocephalic, atraumatic eyes closed, dry mucus membranes Neck: no bony tend - rigidity, tracheotomy Respiratory: no respiratory distress, crackles, rhonchi 2L tpiece++ CV: regular rate, rhythm Gastrointestinal: no guarding, distended - slightly, other - J tube++ Genitourinary: other - suprapubic cath++ Musk: other - Multiple contractures all extremities Neurologic: other - unresponsive Skin: warm/dry Shakir Benitez MD Feb 20, 2020 07:02
[2020-02-20 08:00] VITALS: BP 110/64
[2020-02-20] MEDS: Sucralfate 1gm tab GT SCH (08:17)
[2020-02-20] MEDS: Lactobacillus-GG tablet GT SCH (08:17)
[2020-02-20] MEDS: Miralax 17gm pkt GT SCH (08:17)
[2020-02-20] MEDS: Ascorbic Acid 500mg tab GT SCH (08:18)
[2020-02-20] MEDS: Docusate 100mg/10ml Liq GT SCH (08:18)
[2020-02-20] MEDS: Enoxaparin 40mg Inj SUBQ SCH (08:19)
--- NOTE | 2020-02-20 10:14 | Nephrology Progress Note ---
Assessment/Plan Problem List: (1) Hyponatremia (2) Electrolyte imbalance (3) Functional quadriplegia (4) UTI (urinary tract infection) (5) Decubitus skin ulcer Assessment Moderate hyponatremia, etiology to be identified other conditions: Chronic jejunostomy tube Chronic tracheostomy Malfunction of gastrostomy tube Functional quadriplegia Multiple sclerosis UTI, suprapubic catheter Chronic vegetative state Plan February 19: No labs drawn today. Will check electrolytes tomorrow. Previously: Serum sodium up to 135 Still pending for urine spot sodium and urine osmolality results Serum uric acid, TSH, lipid panel and osmolality, noted Stop saline infusion for now Further recommendations based on above results Subjective ROS Limited/Unobtainable: Yes Objective Objective Last 24 Hour Vital Signs Date Time Temp Pulse Resp B/P (MAP) Pulse Ox O2 Delivery O2 Flow Rate FiO2 02/20/20 09:00 Trach Collar 5.0 02/20/20 08:18 90 110/62 02/20/20 08:00 98.0 78 20 110/64 (79) 98 02/20/20 07:58 96 T-Piece 5.0 28 02/20/20 07:58 100 20 96 T-Piece 5.0 28 02/20/20 04:00 98.8 88 22 93/61 (72) 97 02/20/20 00:07 98 T-Piece 5.0 28 02/20/20 00:00 98.2 91 24 118/65 (82) 97 02/19/20 21:00 Trach Collar 5.0 02/19/20 20:00 100.2 88 24 118/63 (81) 99 02/19/20 19:00 91 20 97 T-Piece 5.0 28 02/19/20 19:00 97 T-Piece 5.0 28 02/19/20 15:58 100.2 78 20 118/64 (82) 99 02/19/20 15:24 86 02/19/20 13:30 98 T-Piece 5.0 28 02/19/20 12:00 99.1 84 20 114/65 (81) 99 02/19/20 11:53 75 Intake and Output 02/19/20 02/20/20 19:00 07:00 Intake Total 1160.000 ml Output Total 800 ml Balance 360.000 ml Intake Free Water 60 ml IV Total 330.000 ml Tube Feeding 770 ml Output Urine Total 800 ml # Bowel Movements 1 Laboratory Tests 02/20/20 00:15: Urine Osmolality 428L, Urine Random Sodium 146H Height (Feet): 5 Height (Inches): 0.00 Weight (Pounds): 100 General Appearance: no apparent distress EENT: other - Patient have a T-piece to oxygen Cardiovascular: normal rate Respiratory/Chest: decreased breath sounds Abdomen: distended Chris Miller MD Feb 20, 2020 10:14
--- NOTE | 2020-02-20 10:16 | General Progress Note ---
Subjective ROS Limited/Unobtainable: No Allergies: Coded Allergies: CEPHALEXIN (Unverified Allergy, Unknown, 12/05/13) Objective Last 24 Hour Vital Signs Date Time Temp Pulse Resp B/P (MAP) Pulse Ox O2 Delivery O2 Flow Rate FiO2 02/20/20 09:00 Trach Collar 5.0 02/20/20 08:18 90 110/62 02/20/20 08:00 98.0 78 20 110/64 (79) 98 02/20/20 07:58 96 T-Piece 5.0 28 02/20/20 07:58 100 20 96 T-Piece 5.0 28 02/20/20 04:00 98.8 88 22 93/61 (72) 97 02/20/20 00:07 98 T-Piece 5.0 28 02/20/20 00:00 98.2 91 24 118/65 (82) 97 02/19/20 21:00 Trach Collar 5.0 02/19/20 20:00 100.2 88 24 118/63 (81) 99 02/19/20 19:00 91 20 97 T-Piece 5.0 28 02/19/20 19:00 97 T-Piece 5.0 28 02/19/20 15:58 100.2 78 20 118/64 (82) 99 02/19/20 15:24 86 02/19/20 13:30 98 T-Piece 5.0 28 02/19/20 12:00 99.1 84 20 114/65 (81) 99 02/19/20 11:53 75 Intake and Output 02/19/20 02/20/20 19:00 07:00 Intake Total 1160.000 ml Output Total 800 ml Balance 360.000 ml Intake Free Water 60 ml IV Total 330.000 ml Tube Feeding 770 ml Output Urine Total 800 ml # Bowel Movements 1 Laboratory Tests 02/20/20 00:15: Urine Osmolality 428L, Urine Random Sodium 146H Height (Feet): 5 Height (Inches): 0.00 Weight (Pounds): 100 General Appearance: no apparent distress EENT: normal ENT inspection Neck: supple Cardiovascular: normal rate Respiratory/Chest: decreased breath sounds Abdomen: normal bowel sounds, non tender, soft Extremities: non-tender Assessment/Plan Problem List: (1) Malfunction of gastrostomy tube ICD Codes: K94.23 - Gastrostomy malfunction SNOMED: 195730103 (2) UTI (urinary tract infection) ICD Codes: N39.0 - Urinary tract infection, site not specified SNOMED: 46477879 Qualifiers: Qualified Codes: T83.510A - Infection and inflammatory reaction due to cystostomy catheter, initial encounter; N39.0 - Urinary tract infection, site not specified (3) Functional quadriplegia ICD Codes: R53.2 - Functional quadriplegia SNOMED: 562131910491194 (4) Fever ICD Codes: R50.9 - Fever, unspecified SNOMED: 298079551 Assessment/Plan: GT has been changed and functioning anemia work up>>>iron def>> IV iron respiratory care will fu Husam Méndez MD Feb 20, 2020 10:16
[2020-02-20 10:59] LABS: BASOPHILS % (AUTO) 1.8 % (0.0-2.0); EOSINOPHILS % (AUTO) 9.2 % (0.0-3.0); HEMATOCRIT 35.8 % (42.0-52.0); HEMOGLOBIN 11.7 G/DL (14.2-18.0); LYMPHOCYTES % (AUTO) 24.7 % (20.0-45.0); MEAN CORPUSCULAR VOLUME 87 FL (80-99); MONOCYTES % (AUTO) 4.8 % (1.0-10.0); NEUTROPHILS % (AUTO) 59.5 % (45.0-75.0); PLATELET COUNT 416 K/UL (150-450); RED CELL DISTRIBUTION WIDTH 16.4 % (11.6-14.8); WHITE BLOOD COUNT 8.8 K/UL (4.8-10.8)
[2020-02-20 11:29] LABS: ALANINE AMINOTRANSFERASE 21 U/L (12-78); ALBUMIN 3.5 G/DL (3.4-5.0); ALBUMIN/GLOBULIN RATIO 0.7 (1.0-2.7); ALKALINE PHOSPHATASE 115 U/L (46-116); ANION GAP 11 mmol/L (5-15); ASPARTATE AMINO TRANSFERASE 23 U/L (15-37); BILIRUBIN,TOTAL 0.1 MG/DL (0.2-1.0); BLOOD UREA NITROGEN 7 mg/dL (7-18); CALCIUM 9.3 MG/DL (8.5-10.1); CARBON DIOXIDE 24 MMOL/L (21-32); CHLORIDE 101 MMOL/L (98-107); CREATININE 0.6 MG/DL (0.55-1.30); PHOSPHORUS 3.6 MG/DL (2.5-4.9); POTASSIUM 4.4 MMOL/L (3.5-5.1); SODIUM 136 MMOL/L (136-145)
[2020-02-20 12:00] VITALS: BP 102/58
--- NOTE | 2020-02-20 12:21 | Pulmonology Progress Note ---
Subjective ROS Limited/Unobtainable: Yes Interval Events: None new Constitutional: Reports: no symptoms HEENT: Repors: no symptoms Respiratory: Reports: no symptoms Cardiovascular: Reports: no symptoms Allergies: Coded Allergies: CEPHALEXIN (Unverified Allergy, Unknown, 12/05/13) Objective Last 24 Hour Vital Signs Date Time Temp Pulse Resp B/P (MAP) Pulse Ox O2 Delivery O2 Flow Rate FiO2 02/20/20 12:00 98.3 65 20 102/58 (73) 98 02/20/20 09:00 Trach Collar 5.0 02/20/20 08:18 90 110/62 02/20/20 08:00 98.0 78 20 110/64 (79) 98 02/20/20 07:58 96 T-Piece 5.0 28 02/20/20 07:58 100 20 96 T-Piece 5.0 28 02/20/20 04:00 98.8 88 22 93/61 (72) 97 02/20/20 00:07 98 T-Piece 5.0 28 02/20/20 00:00 98.2 91 24 118/65 (82) 97 02/19/20 21:00 Trach Collar 5.0 02/19/20 20:00 100.2 88 24 118/63 (81) 99 02/19/20 19:00 91 20 97 T-Piece 5.0 28 02/19/20 19:00 97 T-Piece 5.0 28 02/19/20 15:58 100.2 78 20 118/64 (82) 99 02/19/20 15:24 86 02/19/20 13:30 98 T-Piece 5.0 28 Intake and Output 02/19/20 02/20/20 19:00 07:00 Intake Total 1160.000 ml Output Total 800 ml Balance 360.000 ml Intake Free Water 60 ml IV Total 330.000 ml Tube Feeding 770 ml Output Urine Total 800 ml # Bowel Movements 1 General Appearance: no acute distress, other - pt non responsive HEENT: status post trach Respiratory: decreased breath sounds, other - T-piece Cardiovascular: normal rate Abdomen: soft, non tender, other - J-tube Genitourinary: other - suprapubic cath Neurologic: unresponsiveness Laboratory Tests 02/20/20 00:15: Urine Osmolality 428L, Urine Random Sodium 146H 02/20/20 09:55: White Blood Count 8.8, Red Blood Count 4.10L, Hemoglobin 11.7L, Hematocrit 35.8L , Mean Corpuscular Volume 87, Mean Corpuscular Hemoglobin 28.5, Mean Corpuscular Hemoglobin Concent 32.7, Red Cell Distribution Width 16.4H, Platelet Count 416, Mean Platelet Volume 7.4, Neutrophils (%) (Auto) 59.5, Lymphocytes (%) (Auto) 24.7, Monocytes (%) (Auto) 4.8, Eosinophils (%) (Auto) 9.2H, Basophils (%) (Auto) 1.8, Sodium Level 136, Potassium Level 4.4, Chloride Level 101, Carbon Dioxide Level 24, Anion Gap 11, Blood Urea Nitrogen 7, Creatinine 0.6, Estimat Glomerular Filtration Rate > 60, Glucose Level 129H, Osmolality 290L, Uric Acid 2.1L, Calcium Level 9.3, Phosphorus Level 3.6, Magnesium Level 2.1, Total Bilirubin 0.1L, Aspartate Amino Transf (AST/SGOT) 23, Alanine Aminotransferase (ALT/SGPT) 21, Alkaline Phosphatase 115, Total Protein 8.5H, Albumin 3.5, Globulin 5.0, Albumin/Globulin Ratio 0.7L Current Medications Medications (Trade) Dose Ordered Sig/Kathryn Route PRN Reason Start Time Stop Time Status Last Admin Dose Admin Acetaminophen (Tylenol) 650 mg Q8H PRN GT Temp >100.5 02/15/20 17:00 03/16/20 16:59 02/17/20 05:31 Acetaminophen (Tylenol) 650 mg Q8H PRN GT Mild Pain (Pain Scale 1-3) 02/15/20 17:00 03/16/20 16:59 Acetaminophen (Tylenol) 650 mg Q8H PRN GT headache 02/15/20 17:00 03/16/20 16:59 Acetaminophen/ Hydrocodone Bitart ([place] 10/325) 1 tab Q4H PRN ORAL For Pain 4-10 02/15/20 05:45 02/22/20 05:44 Ascorbic Acid (Vitamin C) 500 mg DAILY GT 02/15/20 09:00 03/16/20 08:59 02/20/20 08:18 Atenolol (Tenormin) 50 mg DAILY GT 02/16/20 00:00 03/17/20 00:00 02/20/20 08:18 Docusate Sodium (Colace) 250 mg DAILY GT 02/15/20 09:00 03/16/20 08:59 02/20/20 08:18 Enoxaparin Sodium (Lovenox) 40 mg DAILY SUBQ 02/15/20 09:00 05/15/20 08:59 02/20/20 08:19 Ipratropium [place] (Atrovent) 500 mcg Q4H PRN HHN Shortness of Breath 02/16/20 14:45 02/21/20 14:44 Iron Sucrose 100 mg/Sodium Chloride 60 ml @ 240 mls/hr BEDTIME IVPB 02/19/20 21:00 02/23/20 21:14 02/19/20 21:00 Lactobacillus Acidophilus (Culturelle) 1 tab DAILY GT 02/15/20 09:00 05/15/20 08:59 02/20/20 08:17 Lansoprazole (Prevacid) 30 mg DAILY GT 02/15/20 09:00 03/16/20 08:59 02/20/20 08:18 Piperacillin Sod/ Tazobactam Sod 3.375 gm/Sodium Chloride 110 ml @ 27.5 mls/hr EVERY 8 HOURS IVPB 02/15/20 14:00 02/20/20 13:59 02/20/20 06:10 Polyethylene Glycol (Miralax) 17 gm DAILY GT 02/15/20 09:00 03/16/20 08:59 02/20/20 08:17 Primidone (Mysoline) 50 mg TID GT 02/15/20 09:00 03/16/20 08:59 02/20/20 08:17 Sucralfate (Carafate) 1 gm DAILY GT 02/15/20 09:00 03/16/20 08:59 02/20/20 08:17 Vancomycin HCl (Vanco pharmacy to dose) 1 ea DAILY PRN MISC Per rx protocol 02/15/20 05:45 03/16/20 05:44 Vancomycin HCl 750 mg/Sodium Chloride 275 ml @ 183.333 mls/hr Q8H IVPB 02/20/20 04:00 02/25/20 03:59 02/20/20 11:16 Assessment/Plan Assessment/Plan A: 1. Urosepsis. Suprapubic catheter 2. Chronic tracheostomy. T-piece on low 5L oxygen 3. Chronic jejunostomy tube 4. Multiple sclerosis. 5. Bilateral BTK amputation 6. Chronic vegetative state P: 1. Continue Abx 2. Continue T-piece with 5 L of oxygen and pulmonary hygiene 3. Malfunctioning GT tube has been replaced and is now functioning 4. Electrolytes correcting; continue to monitor labs Agree with current management and care. The care for this patient was discussed with my supervising physician. Time spent on this case was 31 minutes Jason Wei Feb 20, 2020 12:21
--- NOTE | 2020-02-20 14:13 | Diagnostic Imaging Report ---
Indication: Shortness of breath Technique: One view of the chest Comparison: 02/14/2020 Findings: Atelectasis is again demonstrated at the left lung base. The lungs and pleural spaces are otherwise clear. Tracheostomy again demonstrated. Normal heart size Impression: Minimal left basilar atelectasis. No acute process otherwise
[2020-02-20] MEDS ORDERED: VANCOMYCIN750 MG/150 IV (14:57)
[2020-02-20 16:00] VITALS: BP 113/67
--- NOTE | 2020-02-20 16:10 | Surgery Progress Note ---
Surgery Progress Note Subjective Symptoms: improved, tolerating diet, passing flatus, BM Objective Last 24 Hour Vital Signs Date Time Temp Pulse Resp B/P (MAP) Pulse Ox O2 Delivery O2 Flow Rate FiO2 02/20/20 12:00 98.3 65 20 102/58 (73) 98 02/20/20 09:00 Trach Collar 5.0 02/20/20 08:18 90 110/62 02/20/20 08:00 98.0 78 20 110/64 (79) 98 02/20/20 07:58 96 T-Piece 5.0 28 02/20/20 07:58 100 20 96 T-Piece 5.0 28 02/20/20 04:00 98.8 88 22 93/61 (72) 97 02/20/20 00:07 98 T-Piece 5.0 28 02/20/20 00:00 98.2 91 24 118/65 (82) 97 02/19/20 21:00 Trach Collar 5.0 02/19/20 20:00 100.2 88 24 118/63 (81) 99 02/19/20 19:00 91 20 97 T-Piece 5.0 28 02/19/20 19:00 97 T-Piece 5.0 28 I&O Intake and Output 02/19/20 02/20/20 19:00 07:00 Intake Total 1160.000 ml Output Total 800 ml Balance 360.000 ml Intake Free Water 60 ml IV Total 330.000 ml Tube Feeding 770 ml Output Urine Total 800 ml # Bowel Movements 1 Dressing: dry Wound: clean Cardiovascular: RSR Respiratory: decreased breath sounds Abdomen: non-tender, present bowel sounds Extremities: no edema, no tenderness, no cyanosis Laboratory Tests Test 02/20/20 00:15 02/20/20 09:55 Urine Osmolality 428 mOsm/kg (429-449) L Urine Random Sodium 146 mmol/L (20-110) H White Blood Count 8.8 K/UL (4.8-10.8) Red Blood Count 4.10 M/UL (4.70-6.10) L Hemoglobin 11.7 G/DL (14.2-18.0) L Hematocrit 35.8 % (42.0-52.0) L Mean Corpuscular Volume 87 FL (80-99) Mean Corpuscular Hemoglobin 28.5 PG (27.0-31.0) Mean Corpuscular Hemoglobin Concent 32.7 G/DL (32.0-36.0) Red Cell Distribution Width 16.4 % (11.6-14.8) H Platelet Count 416 K/UL (150-450) Mean Platelet Volume 7.4 FL (6.5-10.1) Neutrophils (%) (Auto) 59.5 % (45.0-75.0) Lymphocytes (%) (Auto) 24.7 % (20.0-45.0) Monocytes (%) (Auto) 4.8 % (1.0-10.0) Eosinophils (%) (Auto) 9.2 % (0.0-3.0) H Basophils (%) (Auto) 1.8 % (0.0-2.0) Sodium Level 136 MMOL/L (136-145) Potassium Level 4.4 MMOL/L (3.5-5.1) Chloride Level 101 MMOL/L (98-107) Carbon Dioxide Level 24 MMOL/L (21-32) Anion Gap 11 mmol/L (5-15) Blood Urea Nitrogen 7 mg/dL (7-18) Creatinine 0.6 MG/DL (0.55-1.30) Estimat Glomerular Filtration Rate > 60 mL/min (>60) Glucose Level 129 MG/DL (74-106) H Osmolality 290 mOsm/kg (297-317) L Uric Acid 2.1 MG/DL (2.6-7.2) L Calcium Level 9.3 MG/DL (8.5-10.1) Phosphorus Level 3.6 MG/DL (2.5-4.9) Magnesium Level 2.1 MG/DL (1.8-2.4) Total Bilirubin 0.1 MG/DL (0.2-1.0) L Aspartate Amino Transf (AST/SGOT) 23 U/L (15-37) Alanine Aminotransferase (ALT/SGPT) 21 U/L (12-78) Alkaline Phosphatase 115 U/L (46-116) Total Protein 8.5 G/DL (6.4-8.2) H Albumin 3.5 G/DL (3.4-5.0) Globulin 5.0 g/dL Albumin/Globulin Ratio 0.7 (1.0-2.7) L Plan Problems: (1) Functional quadriplegia (2) UTI (urinary tract infection) (3) Malfunction of gastrostomy tube Assessment & Plan: g tube changed and now functional tolerating meds and tf bowel function bowel regimen nutritional optimization DAILY ESTIMATED NEEDS: Needs based on wound, pulmonary/ 66.7kg 25-30 kcals/kg [id number] total kcals 1.25-1.8 g protein/kg 83-120 g total protein 25-30 mL/kg total fluid mLs NUTRITION DIAGNOSIS: * Increased kcal/prot/micronutrients needs R/T wound healing as evidenced by pt admitted w/ stage 3 wounds @ sacrum and R gluteal fold. * Swallowing difficulty R/T dysphagia, respiratory status as evidenced by pt is on T-collar, Jtube dep. CURRENT TF:Glucerna 1.2 @70ml/hr x 20 hrs ENTERAL NUTRITION RECOMMENDATIONS: Glucerna 1.2 @ 70ml/hr x 20 hrs to provide 1400ml, 1680kcal, 86g prot, 1162ml free water * Maintain current TF: meets 100% est kcal/prot needs * HOB over 30 degrees/ water flush per MD ADDITIONAL RECOMMENDATIONS: * Maintain calibrated bedscale wt * Monitor lytes, replete as needed * Wound healing: TF @ goal meets 100% RDI Continue Vit C/ add ZnSO4 220mg QD x 10 days + Caio BID via Jtube * Monitor BGs, need for NISS (4) Fever (5) Fever (6) Fever (7) Hematuria (8) Tachycardia (9) Sepsis (10) Abnormal urogenital findings (11) Encounter for care related to feeding tube (12) Decubitus skin ulcer Assessment & Plan: Patient identified admission of multiple areas of skin breakdown mainly moisture related pressure injuries as well. Patient evaluated care plan initiated wounds washed dressings applied protocol initiated no deep wounds no abscess no cellulitis. Local wound care will be initiated offload pressure nutritional optimization Tacho Fagan Feb 20, 2020 16:10
--- NOTE | 2020-02-20 23:38 | Cardiology Progress Note ---
Subjective DATE OF SERVICE: Feb 20, 2020 On T-tube with low flow oxygen. No respiratory distress No recurrent fever spikes. Monitor: sinus rhythm with rare ectopics. Objective Last 24 Hour Vital Signs Date Time Temp Pulse Resp B/P (MAP) Pulse Ox O2 Delivery O2 Flow Rate FiO2 02/20/20 16:00 97.9 75 24 113/67 (82) 99 02/20/20 14:30 98 T-Piece 5.0 28 02/20/20 12:00 98.3 65 20 102/58 (73) 98 02/20/20 09:00 Trach Collar 5.0 02/20/20 08:18 90 110/62 02/20/20 08:00 98.0 78 20 110/64 (79) 98 02/20/20 07:58 96 T-Piece 5.0 28 02/20/20 07:58 100 20 96 T-Piece 5.0 28 02/20/20 04:00 98.8 88 22 93/61 (72) 97 02/20/20 00:07 98 T-Piece 5.0 28 02/20/20 00:00 98.2 91 24 118/65 (82) 97 HEENT: Thin Trach secretions RHYTHM: NSR, ST LUNGS: no wheezing, bilateral rhonchi - few CARDIAC: regular rhythm, normal S1 and S2, tachycardia ABDOMEN: normal bowel sounds, non tender, soft, no organomegaly, G-Tube intact EXTREMITIES: normal inspection, no calf tenderness, trace edema Laboratory Tests Test 02/20/20 00:15 02/20/20 09:55 Urine Osmolality 428 mOsm/kg (429-449) L Urine Random Sodium 146 mmol/L (20-110) H White Blood Count 8.8 K/UL (4.8-10.8) Red Blood Count 4.10 M/UL (4.70-6.10) L Hemoglobin 11.7 G/DL (14.2-18.0) L Hematocrit 35.8 % (42.0-52.0) L Mean Corpuscular Volume 87 FL (80-99) Mean Corpuscular Hemoglobin 28.5 PG (27.0-31.0) Mean Corpuscular Hemoglobin Concent 32.7 G/DL (32.0-36.0) Red Cell Distribution Width 16.4 % (11.6-14.8) H Platelet Count 416 K/UL (150-450) Mean Platelet Volume 7.4 FL (6.5-10.1) Neutrophils (%) (Auto) 59.5 % (45.0-75.0) Lymphocytes (%) (Auto) 24.7 % (20.0-45.0) Monocytes (%) (Auto) 4.8 % (1.0-10.0) Eosinophils (%) (Auto) 9.2 % (0.0-3.0) H Basophils (%) (Auto) 1.8 % (0.0-2.0) Sodium Level 136 MMOL/L (136-145) Potassium Level 4.4 MMOL/L (3.5-5.1) Chloride Level 101 MMOL/L (98-107) Carbon Dioxide Level 24 MMOL/L (21-32) Anion Gap 11 mmol/L (5-15) Blood Urea Nitrogen 7 mg/dL (7-18) Creatinine 0.6 MG/DL (0.55-1.30) Estimat Glomerular Filtration Rate > 60 mL/min (>60) Glucose Level 129 MG/DL (74-106) H Osmolality 290 mOsm/kg (297-317) L Uric Acid 2.1 MG/DL (2.6-7.2) L Calcium Level 9.3 MG/DL (8.5-10.1) Phosphorus Level 3.6 MG/DL (2.5-4.9) Magnesium Level 2.1 MG/DL (1.8-2.4) Total Bilirubin 0.1 MG/DL (0.2-1.0) L Aspartate Amino Transf (AST/SGOT) 23 U/L (15-37) Alanine Aminotransferase (ALT/SGPT) 21 U/L (12-78) Alkaline Phosphatase 115 U/L (46-116) Total Protein 8.5 G/DL (6.4-8.2) H Albumin 3.5 G/DL (3.4-5.0) Globulin 5.0 g/dL Albumin/Globulin Ratio 0.7 (1.0-2.7) L Assessment/Plan Assessment/Plan Sepsis due to UTI, resolved; no signs of new infxn Respiratory failure Sinus tachycardia resolved Chronic encephalopathy Mult sclerosis with veg state Hypovolemia with electrolyte abn correcting Resp care Beta blockers - maintain dose as is Abx Avoid albuterol Stable for subacute care from cardiovascular standpoint. Roberto Weinberg MD Feb 20, 2020 23:38
--- NOTE | 2020-02-22 08:28 | Discharge Summary ---
Discharge Summary Discharge Summary _ DATE OF ADMISSION: 02/14/2020 DATE OF DISCHARGE: 02/20/2020 DISCHARGED BY: Dr. Nicholson REASON FOR ADMISSION: 50 years old male with past medical history of multiple sclerosis, functional quadriplegia, dysphagia feeding by G-tube, COPD, chronic respiratory failure tr acheostomy status, hypertension, presented with nonfunctioning feeding tube. At the facility patient also noted to be febrile. Nursing staff reported rhonchi on auscultation. Upon evaluation patient had fever 100.6 , was tachycardic 109, slightly tachypneic with respiratory rate 22 , and pulse oximetry was 99% on 5 L via trach collar. Laboratory work-up revealed no leukocytosis WBC 10.6, hemoglobin 9.5, hematocrit 29.3 , platelet count 111. Urinalysis revealed +2 protein, +3 leukocyte esterase , pyuria and moderate bacteria. Lactic acid 1.9. Sodium 131. BUN 14 , creatinine 0.7 . Troponin negative, pro BNP 23. EKG revealed sinus rhythm, no acute ischemic changes. Chest x-ray demonstrated bibasilar opacity, likely representing atelectasis ; no other focal consolidation. Patient admitted with malfunctioning gastrostomy tube and UTI CONSULTANTS: senior manager GI specialist Dr. Méndez disposal man Dr. Miller farm machine tender/oncologist Dr. Benitez surgery [facility] COURSE: Patient admitted and started on empiric antibiotics. GI consulted. G-tube was changed Abdominal x-ray which revealed correct placement of G-tube. Abdominal ultrasound revealed gallbladder wall thickening , possibility of acute cholecystitis should be considered. LFT and bilirubin remained stable. No abdominal pain. Anemia work-up was consistent with anemia of iron deficiency. Patient was on the IV iron. Hemoglobin and hematocrit were closely monitored with goal to keep hemoglobin above 7. Prior to discharge hemoglobin 11.7 , hematocrit 25.8. Blood cultures were negative. Urine culture revealed Enterococcus, Morganella and Providencia. Antibiotic continued based on culture and sensitivity. Strict aspiration precaution maintained. Tracheostomy care provided. Pulmonary toilet provided. Sinus tachycardia was most likely due to sepsis. Patient was on beta-gale. Sinus tachycardia resolved. DVT prophylaxis provided. Renal parameters and electrolytes were closely monitored; nephrotoxic's were avoided. Prior to discharge all electrolytes stable. Patient presented with multiple areas of skin breakdown , mainly moisture related pressure injury. Local wound care initiated ; pressure was offload; and nutritional optimization provided. Continue wound care at the facility. Patient clinically stabilized and was ready for discharge to the facility. FINAL DIAGNOSES: Sepsis UTI Dysphagia, feeding by G-tube Malfunctioning of gastrostomy tube, status post replacement Functional quadriplegia Chronic respiratory failure , tracheostomy status Hyponatremia -resolved Hypovolemia with electrolyte abnormality- corrected Anemia of iron deficiency Multiple sclerosis Sinus tachycardia-resolved Chronic encephalopathy Chronic vegetative state Multiple pressure injury , present on admission DISCHARGE MEDICATIONS: See Medication Reconciliation list. DISCHARGE INSTRUCTIONS: Patient was discharged to the nursing home facility. Follow up with medical doctor at the facility. 50 years old male I have been assigned to dictate discharge summary for this account. I was not involved in the patient's management. Madalyn Blake NP Feb 22, 2020 08:28
== END 2020-02-20 16:52 | DRG 720 ==
LOC: EDUNIT# 18:37 → EDBD 18:37 → EMR 19:10 → 2E 20:11 → EDBEDREQ 23:33 → 4E 02-19 21:58
PROC: 0D20XUZ Change Feeding Device in Upper Intestinal Tract, External Approach (ICD-10-PCS; principal; 2020-02-16)
DX: A41.9 Sepsis, unspecified organism (principal); T83.510A Infection and inflammatory reaction due to cystostomy catheter, initial encounter; E87.1 Hypo-osmolality and hyponatremia; K94.23 Gastrostomy malfunction; G35 Multiple sclerosis; R40.3 Persistent vegetative state; Z93.0 Tracheostomy status; G40.909 Epilepsy, unspecified, not intractable, without status epilepticus; J96.10 Chronic respiratory failure, unspecified whether with hypoxia or hypercapnia; L89.153 Pressure ulcer of sacral region, stage 3; E46 Unspecified protein-calorie malnutrition; Z68.1 Body mass index [BMI] 19.9 or less, adult; G93.40 Encephalopathy, unspecified; E87.8 Other disorders of electrolyte and fluid balance, not elsewhere classified; E86.1 Hypovolemia; D50.9 Iron deficiency anemia, unspecified; F45.8 Other somatoform disorders; R53.2 Functional quadriplegia
CPT/HCPCS: 36415; 71045; 74018; 76700; 80053; 80061; 80202; 81003; 82550; 82607; 82728; 82746; 82977; 83036; 83540; 83550; 83605; 83615; 83690; 83735; 83880; 83930; 83935; 84100; 84300; 84443; 84484; 84550; 85025; 85379; 85610; 85730; 86140; 87040; 87081; 87086; 87181; 93005; 94664; 96361; 96365; 96367; 99285; J7030